=== PATIENT | female | born 1960 | race Caucasian/White ===

== ENCOUNTER 2019-08-18 16:43 | Inpatient (IN) | payer MEDICARE, MEDICAID, SELFPAY ==
[2019-08-24] VITALS (20 sets, daily range): BP systolic 127–156; BP diastolic 54–84; PULSE 52–79; RESP 16–29; TEMP 36.6–37.1; O2SAT 93–100
[2019-08-24] MEDS: ipratropium-albuterol 3 mL Neb INHALATION ×4 (02:09→22:12)
[2019-08-24 05:15] LABS: Add RBC Morph No
[2019-08-24 05:19] LABS: Basophils % 0.2 %; Eosinophils # 0.3 10^3/uL (0.0-0.8); Eosinophils % 2.4 %; Hematocrit 25.6 % (37.0-47.0); Hemoglobin 7.5 g/dL (11.5-15.3); Lymphocytes # 0.7 10^3/uL (0.8-4.8); Mean Corpuscular HGB Conc 29.3 g/dL (30.0-36.0); Mean Corpuscular Hemoglobin 27.7 pg (28.0-34.0); Mean Corpuscular Volume 94.5 fL (81-99); Mean Platelet Volume 9.3 fL (7.4-10.4); Monocytes # 0.5 10^3/uL (0.2-0.9); Monocytes % 4.2 %; Neutrophils # 9.1 10^3/uL (1.8-7.7); Neutrophils % 82.2 %; Nucleated Red Blood Cells % 0 %; Platelet Count 235 10^3/cmm (130-400); Red Blood Count 2.71 10^6/uL (4.1-5.3); Red Cell Distribution Width 15.9 % (12.1-15.1); White Blood Count 11.1 10^3/uL (4.0-10.0)
[2019-08-24 05:46] LABS: Anion Gap 28.6 (5-19); Calcium 9.1 mg/Dl (8.8-10.2); Carbon Dioxide 18 mmol/L (22-29); Chloride 103 mmol/L (98-107); Glomerular Filtration Rate 9.4 mL/min (90-130); Glucose 97 mg/dL (74-106); Potassium 3.6 mmol/L (3.5-5.1); Sodium 146 mmol/L (136-145)
[2019-08-24 05:52] LABS: Blood Urea Nitrogen 82 mg/dL (8-23)
--- NOTE | 2019-08-24 06:00 | XR_ITS ---
WS: [id number] CHEST XRAY TECHNIQUE: Portable chest. CLINICAL INFORMATION: HYPOXIA COMPARISON: August 21, 2019 FINDINGS: Right Port-A-Cath with tip in the SVC. Heart: Cardiomegaly. Moderate pulmonary vascular congestion. Lungs: Bibasilar atelectasis. Interstitial infiltrates due to edema or interstitial pneumonia. Bones: Normal visualized bony structures. XR/XR chest 1V portable [id number] IMPRESSION: 1. Cardiomegaly with stable pulmonary vascular congestion. 2. Interstitial infiltrates due to edema or interstitial pneumonia. This is un changed. 3. Stable right Port-A-Cath.
[2019-08-24] MEDS: clindamycin 900 MG/50 ML PREMIX 100 MG IV ×2 (07:53→15:17)
[2019-08-24 08:20] LABS: Vancomycin Trough 22.6 ug/mL (10-15)
--- NOTE | 2019-08-24 08:30 | PC.RESP ---
BIPAP #10 ON STANDBY
[2019-08-24] MEDS: bumetanide 0.25 mg/mL SDV 10 mL 1 MG IVP ×3 (09:17→23:19)
[2019-08-24] MEDS: heparin 5,000 unit/mL INJ 1 mL 5000 UNIT SUBCUT ×2 (09:17→22:11)
--- NOTE | 2019-08-24 13:57 | PC.CHAP ---
Pastoral Care Encounter/Spiritual Assessment Type of Contact [] Declined ecommerce analyst visit [] Patient/Family/Request visit [] Outpatient visit [] Follow-up visit [] Physician referral [] Code/Alert [] Routine visit [] Staff referral [] Actively dying [] Patient sleeping [] Family support [] [] Out of room [] Palliative care [] [] Receiving care in room [] Pre-surgical visit [] Trauma [] Long length of stay [] ICU visit [] Other: Relational/Emotional Strength [] Patient feels connected with others/family/visitors/staff [] Distress [] Loneliness/isolation [] Abandonment Spirituality of Patient [] Person of [place] [] Attends Advent of their [place] [] Believes in Prayer [] Reads Bible or Voodoo materials [] There are Spiritual issues to be addressed Director Of Cardiology Interventions [] Prayer [] Active listening [] Non-anxious presence [] Spiritual/emotional support [] Crisis/trauma care [] Spiritual counseling [] Bereavement support [] Provided bereavement packet [] Provided Bible/devotional materials [] Provided toy/stuffed animal, coloring book to patient or family member [] Completed spiritual assessment [] Provided Communion [] Anointing/[place] [] Salvation [] Other: Impact on Illness or Injury [] Angry [] Fearful [] Anxious [] Often cries [] Exhaustion [] Unable to work [] Unable to attend samaritan [] Unable to walk/stand [] Unable to read [] Unable to drive [] Unable to eat/drink [] Unable to sleep [] Unable to be with family [] Other: Summary Time spent with patient
--- NOTE | 2019-08-24 13:59 | PC.CHAP ---
Addendum entered by Alex Camarillo 08/24/19 15:15: patient visited by double end tenoner operator Hamilton Brown Original Note: Pastoral Care Encounter/Spiritual Assessment Type of Contact [] Declined double end tenoner operator visit [] Patient/Family/Request visit [] Outpatient visit [] Follow-up visit [] Physician referral [] Code/Alert [] Routine visit [] Staff referral [] Actively dying [] Patient sleeping [] Family support [] [] Out of room [] Palliative care [] [] Receiving care in room [] Pre-surgical visit [] Trauma [] Long length of stay [] ICU visit [] Other: Relational/Emotional Strength [] Patient feels connected with others/family/visitors/staff [] Distress [] Loneliness/isolation [] Abandonment Spirituality of Patient [] Person of [place] [] Attends Orthodoxy of their [place] [] Believes in Prayer [] Reads Bible or Evangelical materials [] There are Spiritual issues to be addressed Development System Efficiency Manager Interventions [] Prayer [] Active listening [] Non-anxious presence [] Spiritual/emotional support [] Crisis/trauma care [] Spiritual counseling [] Bereavement support [] Provided bereavement packet [] Provided Bible/devotional materials [] Provided toy/stuffed animal, coloring book to patient or family member [] Completed spiritual assessment [] Provided Communion [] Anointing/[place] [] Salvation [x] Other: Isolation Impact on Illness or Injury [] Angry [] Fearful [] Anxious [] Often cries [] Exhaustion [] Unable to work [] Unable to attend anabaptist [] Unable to walk/stand [] Unable to read [] Unable to drive [] Unable to eat/drink [] Unable to sleep [] Unable to be with family [] Other: Summary Isolation Time spent with patient 2min
[2019-08-24 17:06] LABS: Glucose Point of Care 119 mg/dL (70-110)
--- NOTE | 2019-08-24 17:15 | P.PN_ITS ---
Subjective Subjective: Interval history: No new issues. Doing well. Extubated, feels comfortable. Hemodynamic parameters look stable Vitals/I&O/Wt Last Vital Signs Temp 98.2 F 08/24/19 14:00 Pulse 75 08/24/19 16:00 Resp 18 08/24/19 16:00 BP 139/64 08/24/19 16:00 Pulse Ox 99 08/24/19 16:00 08/24/19 08/24/19 08/24/19 06:59 14:59 22:59 Intake Total 100 / 100 50 / 50 Output Total 1700 / 1700 Balance -1600 / -1600 50 / 50 Weight last 48 hrs Weight 149.685 kg Weight 156.172 kg Physical Exam Const: COMMON NORMALS: no apparent distress, average body habitus, oriented x3, no limitations, healthy appearing, alert and well nourished HENMT: COMMON NORMALS: normocephalic and head/scalp atraumatic HEAD & SCALP: normocephalic and atraumatic Eye: COMMON NORMALS: PERRL and EOMs intact bilaterally PUPIL: Yes PERRL Lymph: LYMPHATIC: no lymphadenopathy noted and no lymphedema noted Chest: COMMONS NORMALS: inspection of chest normal and palpation of chest normal Resp: COMMON NORMALS: normal respiratory effort and no retractions Cardio: COMMON NORMALS: regular rate RATE: regular rate GI: COMMON NORMALS: normal to inspection, nondistended, normoactive bowel sounds Neuro: COMMON NORMALS: oriented x3 SENSORIUM/ORIENTATION: Yes alert Urinary Catheter Management^: Daniel: Cath Placed During This Visit: no Data Labs: Other Labs: All Labs last 24 hrs except CBC/BMP 08/23/19 08/24/19 08/24/19 18:04 05:08 05:08 RBC 2.71 L MCV 94.5 MCH 27.7 L MCHC 29.3 L RDW 15.9 H MPV 9.3 Neut % (Auto) 82.2 Lymph % (Auto) 6.0 Crowley % (Auto) 4.2 Eos % (Auto) 2.4 Baso % (Auto) 0.2 Neut # (Auto) 9.1 H Lymph # (Auto) 0.7 L Crowley # (Auto) 0.5 Eos # (Auto) 0.3 Baso # (Auto) 0.0 Nucleated RBC % (a uto) 0 Nucleated RBCs # 0.0 GFR Calculation 9.4 L POC Glucose 127 H Calcium 9.1 Vancomycin Trough 08/24/19 08/24/19 08:00 17:02 RBC MCV MCH MCHC RDW MPV Neut % (Auto) Lymph % (Auto) Crowley % (Auto) Eos % (Auto) Baso % (Auto) Neut # (Auto) Lymph # (Auto) Crowley # (Auto) Eos # (Auto) Baso # (Auto) Nucleated RBC % (a uto) Nucleated RBCs # GFR Calculation POC Glucose 119 Calcium Vancomycin Trough 22.6 H A&P Additional A&P Information Additional A&P Information: 1. Non oliguric ROBBIE - creatinine coming down since the peak but remains in the high 4 range - given infection this is likely related; of note both pro and anti-inflammatory cytokines result in a reversible ATN type picture - given the onset on admission I doubt Abx are playing a role - renal sono shows no obstruction - intermittent bumex dosing ok - avoid the usuals - watch Vanco levels closely 2. VDRF, extubated 08/23/19 - O2, per ICU team 3. Lytes look good with minor aberrance 4. Infection - GAS in blood, ? source likely urine given history, ? pulm - defer to ICU team - on Abx inc Imipenem, Clindamycin, Vanco Attestations Medical Necessity Statement*: eval for ROBBIE Coding Level of Care Code Acute Global Engineering Manager for Amelia Haddad
--- NOTE | 2019-08-24 17:33 | P.PN_ITS ---
Subjective Subjective: Interval history: She is feeling about the same. Denies worsening of shortness of breath. Denies chest pain. Having some on and off abdominal discomfort. Had a bowel movement this morning. Vitals/I&O/Wt Last Vital Signs Temp 98.2 F 08/24/19 14:00 Pulse 75 08/24/19 16:00 Resp 18 08/24/19 16:00 BP 139/64 08/24/19 16:00 Pulse Ox 99 08/24/19 16:00 08/24/19 08/24/19 08/24/19 06:59 14:59 22:59 Intake Total 100 / 100 50 / 50 Output Total 1700 / 1700 1200 / 1200 Balance -1600 / -1600 50 / 50 -1200 / -1150 Weight last 48 hrs Weight 149.685 kg Weight 156.172 kg Physical Exam Const: COMMON NORMALS: no apparent distress and alert NUTRITIONAL APPEARANCE: obese ORIENTATION/CONSCIOUSNESS: Yes awake HENMT: COMMON NORMALS: oropharynx normal Neck/C-Spine: COMMON NORMALS: no JVD (Cannot assess for JVD) Resp: COMMON NORMALS: normal respiratory effort and clear to auscultation bilaterally AUSCULTATION: clear to auscultation bilaterally Cardio: COMMON NORMALS: no JVD (Cannot assess for JVD), regular rhythm, S1 normal heart sound, S2 normal heart sound and no murmurs RHYTHM: regular rhythm HEART SOUNDS: S1 normal and S2 normal GI: COMMON NORMALS: normal to inspection, nondistended, normoactive bowel sounds, soft to palpation and non-tender PALPATION: Yes soft Extremity: COMMON NORMALS: no joint enlargement GENERAL: Yes edema (3+ lower extremity edema, worse on the right) Neuro: SENSORIUM/ORIENTATION: Yes alert Skin: WOUNDS: Yes wounds noted (Venous stasis ulcerations on mid anterior left clark, about 3 cm in diameter, draining some purulent appearing liquid) WOUNDS: Yes wounds noted (Venous stasis ulcerations on mid anterior left clark, about 3 cm in diameter, draining some purulent appearing liquid) OTHER: Chronic bilateral lower extremity venous stasis dermatitis Urinary Catheter Management^: Daniel: Cath Placed During This Visit: no Data Labs: Other Labs: All Labs last 24 hrs except CBC/BMP 08/23/19 08/24/19 08/24/19 18:04 05:08 05:08 RBC 2.71 L MCV 94.5 MCH 27.7 L MCHC 29.3 L RDW 15.9 H MPV 9.3 Neut % (Auto) 82.2 Lymph % (Auto) 6.0 Howard % (Auto) 4.2 Eos % (Auto) 2.4 Baso % (Auto) 0.2 Neut # (Auto) 9.1 H Lymph # (Auto) 0.7 L Howard # (Auto) 0.5 Eos # (Auto) 0.3 Baso # (Auto) 0.0 Nucleated RBC % (a uto) 0 Nucleated RBCs # 0.0 GFR Calculation 9.4 L POC Glucose 127 H Calcium 9.1 Vancomycin Trough 08/24/19 08/24/19 08:00 17:02 RBC MCV MCH MCHC RDW MPV Neut % (Auto) Lymph % (Auto) Howard % (Auto) Eos % (Auto) Baso % (Auto) Neut # (Auto) Lymph # (Auto) Howard # (Auto) Eos # (Auto) Baso # (Auto) Nucleated RBC % (a uto) Nucleated RBCs # GFR Calculation POC Glucose 119 Calcium Vancomycin Trough 22.6 H A&P Assessment and plan (1) Acute and chronic respiratory failure: This morning on nasal cannula, overnight with BiPAP support. Saturating in high 90s on 6 L. Has had 1200 mL urine output. At this time continue Primaxin, vancomycin. Will discontinue clindamycin. Continue bumetanide. Zaroxolyn on hold. Continue oxygen support. BiPAP support as needed. Readdress goals of care according to her wishes. Status: Acute Code(s): J96.20 - Acute and chronic respiratory failure, unspecified whether with hypoxia or hypercapnia (2) Bacteremia: So far no growth on repeat blood culture from 08/22. Strep pyogenes and coagulase-negative staph from blood culture 08/18. Suspected port of entry possibly wounds on lower extremities. No vegetations noted on UNA. Discussed with her significant other and with her, unfortunately additional imaging with CT could not be obtained due to physical limitations. Status: Acute Code(s): R78.81 - Bacteremia (3) Acute kidney injury: Creatinine has plateaued around 4.7. Continue with cautious diuresis. Monitor blood pressures. Appreciate nephrology assessments. Status: Acute Code(s): N17.9 - Acute kidney failure, unspecified (4) Bacteriuria: Multidrug-resistant Pseudomonas in urine, resistant to Primaxin. This appears to be likely asymptomatic bacteriuria versus colonization since she has been responding to her current antibiotics. Discussed with her and significant other. Status: Acute Code(s): R82.71 - Bacteriuria (5) Acute on chronic diastolic heart failure: Continue cautious diuresis as allowed by renal function. Continues on Bumex 1 mg. Metolazone has been on hold. Status: Acute Code(s): I50.33 - Acute on chronic diastolic (congestive) heart failure Additional A&P Information Additional A&P Information: Right lower extremity swelling: Will assess with Doppler ultrasound for DVT. Intermittent abdominal pain: Unfortunately unable to obtain CT scan due to body habitus. Will obtain acute abdominal series. Had a bowel movement today. Denies severe pain. Initially tender on palpation, however, on repeat examination was not tender any longer. Altered mental status: Improved. Bradycardia: Improved. Monitor heart rates Pulmonary hypertension Morbid obesity Diabetes mellitus with Charcot arthropathy Chronic lower extremity venous insufficiency Chronic venous stasis dermatitis Venous stasis ulcers on the left lower extremity: Continue vancomycin, Primaxin. Continue gentle diuresis. Elevate extremities. Attestations Medical Necessity Statement*: Continue admission for assessment management of acute on chronic respiratory failure, bacteremia, diastolic CHF exacerbation with acute on chronic renal failure. Coding Level of Care Code Acute Supervisor Powder And Primer Canning for Amelia Haddad Exam Problem Focused Diagnoses Acute and chronic respiratory failure J96.20 Bacteremia R78.81 Acute kidney injury N17.9 Bacteriuria R82.71 Acute on chronic diastolic heart failure I50.33
--- NOTE | 2019-08-24 17:34 | XRR_ITS ---
PROCEDURE INFORMATION: Exam: XR Abdomen, 2 Views Exam date and time: 08/24/2019 5:36 PM Age: 59 years old Clinical indication: Generalized; Patient HX: Intermittent abdominal pain, PT unable to have CT due to size. Xrays done portable, PT unable to come to department; Additional info: Unknown TECHNIQUE: Imaging protocol: XR of the abdomen. Frontal supine and upright views of the abdomen. Views: 2 Views. COMPARISON: CT Chest/Abdomen/Pelvis wo IV 07/03/2019 5:29 AM FINDINGS: Tubes, catheters and devices: Catheter tubing is coiled in the lower abdomen and pelvis. It appears this is a probable right ureteral stent. Lower thorax: The heart is enlarged. Bibasilar airspace opacities are identified compatible with pneumonic infiltrates left much greater than right. There is a small left pleural effusion. No pneumothorax. Gastrointestinal tract: Normal. No bowel dilation. Intraperitoneal space: Normal. No free air. Vasculature: There is a right subclavian port with tip in the superior vena cava. Bones/joints: Moderate to severe degenerative changes are noted in the spine. Soft tissues: There is mild vascular congestion with interstitial edema. XR/XR acute abdomen series [id number] IMPRESSION: 1. Basilar pneumonic infiltrates left greater than right. 2. Nonspecific abdomen. Probable right ureteral stent.
[2019-08-24 21:44] LABS: Glucose Point of Care 106 mg/dL (70-110)
[2019-08-24] MEDS: gabapentin 300 mg Capsule PO (22:11)
[2019-08-24] MEDS: metOLazone 5 MG Tablet 10 MG PO (22:14)
[2019-08-25] VITALS (13 sets, daily range): BP systolic 132–159; BP diastolic 59–81; PULSE 51–83; RESP 15–30; TEMP 36.6–37.9; O2SAT 80–100
[2019-08-25] MEDS: ipratropium-albuterol 3 mL Neb INHALATION ×4 (01:47→20:34)
[2019-08-25] MEDS: ferrous sulfate EC 325 mg Tablet PO (05:03)
[2019-08-25 06:43] LABS: Glucose Point of Care 90 mg/dL (70-110)
--- NOTE | 2019-08-25 07:00 | USCV_ITS ---
GladysLia triplett Age: 59 Gender: F : 1960 Exam Date: 08/25/2019 06:43 Ordering Phys: Kush Cortes MD Technologist: Hugo Gan [place] [facility] [place] RT LEG PAIN AND SWELLING HISTORY: Lower extremity pain. PROCEDURES: Venous duplex imaging was performed in only the right lower extremity. The following venous structures were evaluated: common femoral vein, profunda vein, proximal portion of the greater saphenous vein, superficial femoral vein, and the popliteal vein. In addition, the posterior tibial and peroneal trunk were evaluated. FINDINGS: Normal 2-D Doppler and augmentation and compressibility throughout the lower extremity venous structures. Additional imaging through the proximal calf veins also reveals no thrombus. Limited evaluation of the greater saphenous vein is patent with no thrombus.. CONCLUSIONS No evidence of right lower extremity DVT. Roger Mason MD (Electronically Signed) Final Date: 25 August 2019 09:58 S
[2019-08-25] MEDS: pantoprazole DR 40 mg Tablet PO (08:54)
[2019-08-25] MEDS: fluoxetine 20 mg Capsule PO (08:54)
[2019-08-25] MEDS: isosorbide mononitrate ER 60 mg Tablet PO ×2 (08:54→17:53)
[2019-08-25] MEDS: sennosides 8.6 mg Tablet 1 MG PO ×2 (08:55→17:53)
[2019-08-25] MEDS: bumetanide 0.25 mg/mL SDV 10 mL 1 MG IVP ×3 (08:55→21:25)
[2019-08-25] MEDS: amlodipine 5 mg Tablet PO ×2 (08:55→17:53)
[2019-08-25] MEDS: heparin 5,000 unit/mL INJ 1 mL 5000 UNIT SUBCUT ×2 (08:56→21:30)
[2019-08-25] MEDS: metOLazone 5 MG Tablet 10 MG PO ×3 (09:00→21:30)
[2019-08-25] MEDS: sevelamer 800 mg Tablet PO ×3 (09:00→17:53)
[2019-08-25 09:03] LABS: Basophils % 0.1 %; Eosinophils # 0.2 10^3/uL (0.0-0.8); Eosinophils % 1.6 %; Hematocrit 31.1 % (37.0-47.0); Lymphocytes # 0.7 10^3/uL (0.8-4.8); Lymphocytes % 5.2 %; Mean Corpuscular HGB Conc 28.9 g/dL (30.0-36.0); Mean Corpuscular Hemoglobin 27.7 pg (28.0-34.0); Mean Corpuscular Volume 95.7 fL (81-99); Mean Platelet Volume 9.6 fL (7.4-10.4); Monocytes # 0.5 10^3/uL (0.2-0.9); Monocytes % 3.7 %; Neutrophils # 11.9 10^3/uL (1.8-7.7); Neutrophils % 84.7 %; Nucleated Red Blood Cells % 0 %; Platelet Count 282 10^3/cmm (130-400); Red Blood Count 3.25 10^6/uL (4.1-5.3); Red Cell Distribution Width 15.9 % (12.1-15.1); White Blood Count 14.1 10^3/uL (4.0-10.0)
[2019-08-25 09:15] LABS: Alanine Aminotransferase 5 U/L (0-33); Albumin Level 3.8 g/dL (3.5-5.2); Alkaline Phosphatase 83 IU/L (35-105); Anion Gap 29.1 (5-19); Blood Urea Nitrogen 77 mg/dL (8-23); Calcium 8.3 mg/Dl (8.8-10.2); Carbon Dioxide 17 mmol/L (22-29); Chloride 102 mmol/L (98-107); Globulin 2.2 g/dL (1.3-4.6); Glomerular Filtration Rate 10.5 mL/min (90-130); Glucose 85 mg/dL (74-106); Potassium 4.1 mmol/L (3.5-5.1); Sodium 144 mmol/L (136-145); Total Bilirubin 0.4 mg/dL (0.15-1.2)
[2019-08-25 09:26] LABS: Aspartate Amino Transferase 12 U/L (0-32)
[2019-08-25 09:35] LABS: Add RBC Morph No; Slide Review Slide Review Perform
--- NOTE | 2019-08-25 09:51 | PC.RESP ---
bipap on standby in daytime
--- NOTE | 2019-08-25 11:03 | PC.SOCIAL ---
IMM Update Pg 2 of IMM given and explained to patient who voiced understanding. Copy in chart updated and copy provided to patient.
[2019-08-25] MEDS: HYDROcodone-acetaminophen 5-325 mg Tablet 1 TAB PO ×2 (11:07→17:53)
[2019-08-25 12:42] LABS: Glucose Point of Care 102 mg/dL (70-110)
--- NOTE | 2019-08-25 14:57 | PC.CHAP ---
Pastoral Care Encounter/Spiritual Assessment Type of Contact [] Declined banquet houseperson visit [] Patient/Family/Request visit [] Outpatient visit [x] Follow-up visit [] Physician referral [] Code/Alert [] Routine visit [] Staff referral [] Actively dying [] Patient sleeping [] Family support [] [] Out of room [] Palliative care [] [] Receiving care in room [] Pre-surgical visit [] Trauma [] Long length of stay [] ICU visit [] Other: Relational/Emotional Strength [] Patient feels connected with others/family/visitors/staff [] Distress [] Loneliness/isolation [] Abandonment Spirituality of Patient [] Person of [place] [] Attends Tenriism of their [place] [] Believes in Prayer [] Reads Bible or [place] materials [] There are Spiritual issues to be addressed Fishing Tool Technician Oil [employer] Interventions [] Prayer [] Active listening [] Non-anxious presence [] Spiritual/emotional support [] Crisis/trauma care [] Spiritual counseling [] Bereavement support [] Provided bereavement packet [] Provided Bible/devotional materials [] Provided toy/stuffed animal, coloring book to patient or family member [] Completed spiritual assessment [] Provided Communion [] Anointing/[place] [] Salvation [] Other: Impact on Illness or Injury [] Angry [] Fearful [] Anxious [] Often cries [] Exhaustion [] Unable to work [] Unable to attend taoist [] Unable to walk/stand [] Unable to read [] Unable to drive [] Unable to eat/drink [] Unable to sleep [] Unable to be with family [] Other: Summary Patient in isolation, will followup. Leah Time spent with patient
--- NOTE | 2019-08-25 15:16 | P.PN_ITS ---
Subjective Subjective: Interval history: She is feeling about the same. Denies worsening of shortness of breath. Denies chest pain. Having some on and off abdominal discomfort. Had a bowel movement this morning. Vitals/I&O/Wt Last Vital Signs Temp 98.3 F 08/25/19 12:00 Pulse 68 08/25/19 12:00 Resp 20 H 08/25/19 12:00 BP 151/80 08/25/19 12:00 Pulse Ox 96 08/25/19 12:00 08/25/19 08/25/19 08/25/19 06:59 14:59 22:59 Intake Total 100 / 210 Output Total 1160 / 2360 750 / 750 Balance -1060 / -2150 -750 / -750 Weight last 48 hrs Weight 151.046 kg Weight 148.552 kg Weight 149.685 kg Physical Exam Const: COMMON NORMALS: no apparent distress, average body habitus, oriented x3, no limitations, healthy appearing, alert and well nourished HENMT: COMMON NORMALS: normocephalic and head/scalp atraumatic HEAD & SCALP: normocephalic and atraumatic Eye: COMMON NORMALS: PERRL and EOMs intact bilaterally PUPIL: Yes PERRL Lymph: LYMPHATIC: no lymphadenopathy noted and no lymphedema noted Chest: COMMONS NORMALS: inspection of chest normal and palpation of chest normal Resp: COMMON NORMALS: normal respiratory effort and no retractions Cardio: COMMON NORMALS: regular rate RATE: regular rate GI: COMMON NORMALS: normal to inspection, nondistended, normoactive bowel sounds Neuro: COMMON NORMALS: oriented x3 SENSORIUM/ORIENTATION: Yes alert Urinary Catheter Management^: Daniel: Cath Placed During This Visit: no A&P Additional A&P Information Additional A&P Information: 1. Non oliguric ROBBIE - creatinine coming down - given infection this is likely related; of note both pro and anti-inflammatory cytokines result in a reversible ATN type picture - given the onset on admission I doubt Abx are playing a role - renal sono shows no obstruction - intermittent bumex dosing ok - avoid the usuals - watch Vanco levels closely 2. VDRF, extubated 08/23/19 - O2 3. Lytes look good with minor aberrance 4. Infection - GAS in blood, ? source likely urine given history, ? pulm - defer to ICU team - on Abx inc Imipenem, Clindamycin, Vanco - renal issues now quiescent, with this in mind I will sign off at this time. Thanks for my involvement in her care Attestations Medical Necessity Statement*: Claudia for ROBBIE Coding Level of Care Code Acute Steel Construction Worker for Amelia Haddad
[2019-08-25 16:27] LABS: Glucose Point of Care 119 mg/dL (70-110)
--- NOTE | 2019-08-25 16:30 | P.PN_ITS ---
Subjective Subjective: Interval history: Reports today she is feeling all right. Denies chest pain or pressure, shortness of breath. Denies abdominal pain or discomfort. Vitals/I&O/Wt Last Vital Signs Temp 100.3 F H 08/25/19 15:42 Pulse 70 08/25/19 15:42 Resp 20 H 08/25/19 15:42 BP 139/62 08/25/19 15:42 Pulse Ox 90 08/25/19 15:42 08/25/19 08/25/19 08/25/19 06:59 14:59 22:59 Intake Total 100 / 210 Output Total 1160 / 2360 750 / 750 Balance -1060 / -2150 -750 / -750 Weight last 48 hrs Weight 151.046 kg Weight 148.552 kg Weight 149.685 kg Physical Exam Const: COMMON NORMALS: no apparent distress and alert NUTRITIONAL APPEARANCE: obese ORIENTATION/CONSCIOUSNESS: Yes awake HENMT: COMMON NORMALS: oropharynx normal Neck/C-Spine: COMMON NORMALS: no JVD (Cannot assess for JVD) Resp: COMMON NORMALS: normal respiratory effort AUSCULTATION: crackles Laterality: bilateral (Bases) Cardio: COMMON NORMALS: no JVD (Cannot assess for JVD), regular rhythm, S1 normal heart sound, S2 normal heart sound and no murmurs RHYTHM: regular rhythm HEART SOUNDS: S1 normal and S2 normal GI: COMMON NORMALS: normal to inspection, nondistended, normoactive bowel sounds, soft to palpation and non-tender INSPECTION: Yes other (Large pannus) PALPATION: Yes soft Extremity: COMMON NORMALS: no joint enlargement GENERAL: Yes edema (3+ lower extremity edema, worse on the right) Neuro: SENSORIUM/ORIENTATION: Yes alert Skin: WOUNDS: Yes wounds noted (Venous stasis ulcerations on mid anterior left clark, about 3 cm in diameter, draining some purulent appearing liquid) WOUNDS: Yes wounds noted (Venous stasis ulcerations on mid anterior left clark, about 3 cm in diameter, draining some purulent appearing liquid) OTHER: Chronic bilateral lower extremity venous stasis dermatitis Urinary Catheter Management^: Daniel: Cath Placed During This Visit: no A&P Assessment and plan (1) Acute and chronic respiratory failure: Oxygenation has been improving. She has been doing well on 3 L nasal cannula so far. Continue Primaxin, vancomycin. Continue bumetanide. Has been in negative balance. Monitor renal function. Continue oxygen support. BiPAP support as needed. Continue to readdress goals of care according to her wishes. Status: Acute Code(s): J96.20 - Acute and chronic respiratory failure, unspecified whether with hypoxia or hypercapnia (2) Bacteremia: So far no growth on repeat blood culture from 08/22. Strep pyogenes and coagulase-negative staph from blood culture 08/18. Suspected port of entry possibly wounds on lower extremities. No vegetations noted on UNA. Discussed with her significant other and with her, unfortunately additional imaging with CT could not be obtained due to physical limitations. Status: Acute Code(s): R78.81 - Bacteremia (3) Acute kidney injury: With mild improvement. Continue with cautious diuresis. Monitor blood pressures. Appreciate nephrology assessments. Status: Acute Code(s): N17.9 - Acute kidney failure, unspecified (4) Bacteriuria: Multidrug-resistant Pseudomonas in urine, resistant to Primaxin. This appears to be likely asymptomatic bacteriuria versus colonization since she has been responding to her current antibiotics. Discussed with her and significant other. Status: Acute Code(s): R82.71 - Bacteriuria (5) Acute on chronic diastolic heart failure: Continue cautious diuresis as allowed by renal function. Continues on Bumex 1 mg. Metolazone has been on hold. Status: Acute Code(s): I50.33 - Acute on chronic diastolic (congestive) heart failure Additional A&P Information Additional A&P Information: Right lower extremity swelling: Doppler ultrasound negative for DVT. Intermittent abdominal pain: Nonspecific abdominal series. Unfortunately unable to obtain CT scan due to body habitus. Having bowel movements. No pain. Altered mental status: Improved. Bradycardia: Improved. Monitor heart rates Pulmonary hypertension Morbid obesity Diabetes mellitus with Charcot arthropathy Chronic lower extremity venous insufficiency Chronic venous stasis dermatitis Venous stasis ulcers on the left lower extremity: Continue vancomycin, Primaxin. Continue gentle diuresis. Elevate extremities. Attestations Medical Necessity Statement*: Continue assessment management of respiratory failure secondary to CHF, pneumonia, assessment of bacteremia. Coding Level of Care Code Acute Home Care Chaplain for [facility] Diagnoses Acute and chronic respiratory failure J96.20 Bacteremia R78.81 Acute kidney injury N17.9 Bacteriuria R82.71 Acute on chronic diastolic heart failure I50.33
--- NOTE | 2019-08-25 20:37 | PC.RESP ---
bipap on standby at this time
[2019-08-25 21:20] LABS: Glucose Point of Care 124 mg/dL (70-110)
[2019-08-25] MEDS: gabapentin 300 mg Capsule PO (21:30)
[2019-08-26] VITALS (16 sets, daily range): BP systolic 135–162; BP diastolic 56–72; PULSE 61–89; RESP 15–19; TEMP 36.6–36.8; O2SAT 91–99
[2019-08-26] MEDS: ipratropium-albuterol 3 mL Neb INHALATION ×3 (01:16→19:55)
[2019-08-26] MEDS: ferrous sulfate EC 325 mg Tablet PO (05:08)
--- NOTE | 2019-08-26 06:29 | PC.RESP ---
patient stated she wanted to wear it for only ten to fifteen min.
[2019-08-26 06:30] LABS: Glucose Point of Care 98 mg/dL (70-110)
[2019-08-26] MEDS: pantoprazole DR 40 mg Tablet PO (08:46)
[2019-08-26] MEDS: isosorbide mononitrate ER 60 mg Tablet PO ×2 (08:46→17:26)
[2019-08-26] MEDS: fluoxetine 20 mg Capsule PO (08:46)
[2019-08-26] MEDS: heparin 5,000 unit/mL INJ 1 mL 5000 UNIT SUBCUT ×2 (08:47→21:37)
[2019-08-26] MEDS: bumetanide 0.25 mg/mL SDV 10 mL 1 MG IVP ×2 (08:47→15:48)
[2019-08-26] MEDS: amlodipine 5 mg Tablet PO ×2 (08:47→17:26)
[2019-08-26] MEDS: sennosides 8.6 mg Tablet 1 MG PO ×2 (08:47→17:26)
[2019-08-26] MEDS: HYDROcodone-acetaminophen 5-325 mg Tablet 1 TAB PO ×2 (08:50→15:48)
[2019-08-26] MEDS: metOLazone 5 MG Tablet 10 MG PO ×2 (10:25→15:47)
[2019-08-26] MEDS: sevelamer 800 mg Tablet PO ×3 (10:25→17:26)
--- NOTE | 2019-08-26 12:05 | PC.RESP ---
BIPAP ON STAND BY.
[2019-08-26 12:18] LABS: Glucose Point of Care 139 mg/dL (70-110)
--- NOTE | 2019-08-26 13:12 | PC.CHAP ---
Pastoral Care Encounter/Spiritual Assessment Type of Contact [x] Declined sign writer hand visit [] Patient/Family/Request visit [] Outpatient visit [] Follow-up visit [] Physician referral [] Code/Alert [] Routine visit [] Staff referral [] Actively dying [] Patient sleeping [] Family support [] [] Out of room [] Palliative care [] [] Receiving care in room [] Pre-surgical visit [] Trauma [] Long length of stay [] ICU visit [] Other: Relational/Emotional Strength [] Patient feels connected with others/family/visitors/staff [] Distress [] Loneliness/isolation [] Abandonment Spirituality of Patient [] Person of [place] [] Attends Orthodox of their [place] [] Believes in Prayer [] Reads Bible or Bahai materials [] There are Spiritual issues to be addressed Home Lighting Adviser Interventions [] Prayer [x] Active listening [x] Non-anxious presence [x] Spiritual/emotional support [] Crisis/trauma care [x] Spiritual counseling [] Bereavement support [] Provided bereavement packet [] Provided Bible/devotional materials [] Provided toy/stuffed animal, coloring book to patient or family member [x] Completed spiritual assessment [] Provided Communion [] Anointing/[place] [] Salvation [] Other: Impact on Illness or Injury [] Angry [] Fearful [] Anxious [] Often cries [] Exhaustion [] Unable to work [] Unable to attend zoroastrian [] Unable to walk/stand [] Unable to read [] Unable to drive [] Unable to eat/drink [] Unable to sleep [] Unable to be with family [] Other: Summary Patient declined vist stating; You go visit someone else, I don't need to hear it. Wandy Portillo Time spent with patient 5-minutes
--- NOTE | 2019-08-26 13:38 | PC.RESP ---
Patient given information on Pulmonary Rehab.
--- NOTE | 2019-08-26 14:46 | PC.NURSE ---
Patient does not have brief on, but has chucks under her. Chucks changed.
--- NOTE | 2019-08-26 15:20 | PC.RESP ---
BIPAP ON STAND BY
[2019-08-26 16:54] LABS: Basophils % 0.3 %; Eosinophils # 0.3 10^3/uL (0.0-0.8); Eosinophils % 3.2 %; Hematocrit 26.7 % (37.0-47.0); Lymphocytes # 0.6 10^3/uL (0.8-4.8); Lymphocytes % 5.5 %; Mean Corpuscular Volume 90.2 fL (81-99); Mean Platelet Volume 9.5 fL (7.4-10.4); Monocytes # 0.4 10^3/uL (0.2-0.9); Monocytes % 3.9 %; Neutrophils % 80.1 %; Nucleated Red Blood Cells % 0 %; Platelet Count 312 10^3/cmm (130-400); Red Blood Count 2.96 10^6/uL (4.1-5.3); Red Cell Distribution Width 15.9 % (12.1-15.1)
[2019-08-26 17:02] LABS: Alanine Aminotransferase < 5 U/L (0-33); Albumin Level 3.4 g/dL (3.5-5.2); Alkaline Phosphatase 90 IU/L (35-105); Anion Gap 21.4 (5-19); Aspartate Amino Transferase 7 U/L (0-32); Blood Urea Nitrogen 79 mg/dL (8-23); Calcium 8.5 mg/Dl (8.8-10.2); Carbon Dioxide 23 mmol/L (22-29); Chloride 94 mmol/L (98-107); Globulin 4.1 g/dL (1.3-4.6); Glomerular Filtration Rate 12.9 mL/min (90-130); Glucose 181 mg/dL (74-106); Potassium 3.4 mmol/L (3.5-5.1); Sodium 135 mmol/L (136-145); Total Bilirubin 0.3 mg/dL (0.15-1.2); Total Protein 7.5 g/dL (6.6-8.7)
[2019-08-26 17:19] LABS: Glucose Point of Care 188 mg/dL (70-110)
[2019-08-26] MEDS: alteplase 1 mg/mL SDV 2 mL 2 MG INTRACATH (17:29)
[2019-08-26 18:37] LABS: Slide Review Slide Review Perform
--- NOTE | 2019-08-26 19:13 | P.PN_ITS ---
Subjective Subjective: Interval history: When asked how she is doing responds cannot complain . Denies shortness of breath while on nasal cannula. Denies chest pain or pressure. Denies abdominal pain. Vitals/I&O/Wt Last Vital Signs Temp 97.9 F 08/26/19 16:00 Pulse 66 08/26/19 16:00 Resp 17 08/26/19 16:00 BP 143/56 08/26/19 16:00 Pulse Ox 94 08/26/19 16:00 08/26/19 08/26/19 08/26/19 06:59 14:59 22:59 Intake Total 100 / 1722 360 / 360 580 / 940 Output Total 1450 / 2200 475 / 475 250 / 725 Balance -1350 / -478 -115 / -115 330 / 215 Weight last 48 hrs Weight 150.003 kg Weight 151.999 kg Weight 151.046 kg Weight 148.552 kg Physical Exam Const: COMMON NORMALS: no apparent distress and alert NUTRITIONAL APPEARANCE: obese ORIENTATION/CONSCIOUSNESS: Yes awake HENMT: COMMON NORMALS: oropharynx normal Neck/C-Spine: COMMON NORMALS: no JVD (Cannot assess for JVD) Chest: CHEST: Yes vascular access (Right chest port appears without erythema, swelling, tenderness.) Resp: COMMON NORMALS: normal respiratory effort AUSCULTATION: crackles Laterality: bilateral (Bases) Cardio: COMMON NORMALS: no JVD (Cannot assess for JVD), regular rhythm, S1 normal heart sound, S2 normal heart sound and no murmurs RHYTHM: regular rhythm HEART SOUNDS: S1 normal and S2 normal GI: COMMON NORMALS: normal to inspection, nondistended, normoactive bowel sounds, soft to palpation and non-tender INSPECTION: Yes other (Large pannus) PALPATION: Yes soft Extremity: COMMON NORMALS: no joint enlargement GENERAL: Yes edema (3+ lower extremity edema, worse on the right) Neuro: SENSORIUM/ORIENTATION: Yes alert Skin: WOUNDS: Yes wounds noted (Venous stasis ulcerations on mid anterior left clark, about 3 cm in diameter, draining some purulent appearing liquid) WOUNDS: Yes wounds noted (Venous stasis ulcerations on mid anterior left clark, about 3 cm in diameter, draining some purulent appearing liquid) OTHER: Chronic bilateral lower extremity venous stasis dermatitis Urinary Catheter Management^: Daniel: Cath Placed During This Visit: no Data Micro: Micro: Microbiology 08/26/19 17:30 Blood Culture - Pr eliminary Blood [facility] 08/26/19 17:35 Blood Culture - Pr eliminary Blood SPEC[facility] A&P Assessment and plan (1) Acute and chronic respiratory failure: Oxygenation has been improving. She has been doing well on 3 L nasal cannula so far. Continue antibiotics at this time. Continue diuretic. Right chest port culture requested today. Had to receive TPA due to draw. If still doing well tomorrow, consider switching to Rocephin for treatment of bacteremia. Regarding CODE STATUS, today she states she would want to be intubated if she was again in respiratory distress, and just request that after she wakes up if she still had that she be given enough sedation to quell her gag reflex Status: Acute Code(s): J96.20 - Acute and chronic respiratory failure, unspecified whether with hypoxia or hypercapnia (2) Bacteremia: So far no growth on repeat blood culture from 08/22. Strep pyogenes and coagulase-negative staph from blood culture 08/18. Suspected port of entry possibly wounds on lower extremities. No vegetations noted on UNA. Right chest port appears clean without erythema, swelling, tenderness. Requested culture today. Had to receive TPA prior due to inability to draw from port. Hold Streptococcus in urine. Likely asymptomatic bacteriuria with Pseudomonas. Unfortunately additional imaging with CT could not be obtained due to physical limitations. Status: Acute Code(s): R78.81 - Bacteremia (3) Acute kidney injury: With mild improvement. Continue with cautious diuresis. Monitor blood pressures. Appreciate nephrology assessments. Status: Acute Code(s): N17.9 - Acute kidney failure, unspecified (4) Bacteriuria: Multidrug-resistant Pseudomonas in urine, resistant to Primaxin. This appears to be likely asymptomatic bacteriuria versus colonization since she has been responding to her current antibiotics. Discussed with her and significant other. Status: Acute Code(s): R82.71 - Bacteriuria (5) Acute on chronic diastolic heart failure: Continue cautious diuresis as allowed by renal function. Continues on Bumex 1 mg. Metolazone discontinued. Status: Acute Code(s): I50.33 - Acute on chronic diastolic (congestive) heart failure Additional A&P Information Additional A&P Information: Right lower extremity swelling: Doppler ultrasound negative for DVT. Intermittent abdominal pain: Resolved. Nonspecific abdominal series. Unfortunately unable to obtain CT scan due to body habitus. Having bowel movements. Altered mental status: Improved. Bradycardia: Improved. Monitor heart rates Pulmonary hypertension Morbid obesity Diabetes mellitus with Charcot arthropathy Chronic lower extremity venous insufficiency Chronic venous stasis dermatitis Venous stasis ulcers on the left lower extremity: Continue vancomycin, Primaxin. Continue gentle diuresis. Elevate extremities. Attestations Medical Necessity Statement*: Continue admission for diagnosis and management of streptococcal bacteremia. Coding Level of Care Code Acute [facility] for [facility] Diagnoses Acute and chronic respiratory failure J96.20 Bacteremia R78.81 Acute kidney injury N17.9 Bacteriuria R82.71 Acute on chronic diastolic heart failure I50.33
[2019-08-26 21:10] LABS: Glucose Point of Care 159 mg/dL (70-110)
[2019-08-26] MEDS: gabapentin 300 mg Capsule PO (21:37)
[2019-08-27] VITALS (7 sets, daily range): BP systolic 124–156; BP diastolic 64–70; PULSE 65–68; RESP 17–20; TEMP 36.8–36.9; O2SAT 93–98
[2019-08-27] MEDS: bumetanide 0.25 mg/mL SDV 10 mL 1 MG IVP ×2 (00:09→10:05)
[2019-08-27] MEDS: ipratropium-albuterol 3 mL Neb INHALATION (02:01)
[2019-08-27] MEDS: HYDROcodone-acetaminophen 5-325 mg Tablet 1 TAB PO ×2 (04:06→10:04)
[2019-08-27 06:14] LABS: Basophils % 0.4 %; Eosinophils # 0.3 10^3/uL (0.0-0.8); Eosinophils % 4.1 %; Hematocrit 24.8 % (37.0-47.0); Hemoglobin 7.4 g/dL (11.5-15.3); Lymphocytes # 0.6 10^3/uL (0.8-4.8); Lymphocytes % 7.4 %; Mean Corpuscular HGB Conc 29.8 g/dL (30.0-36.0); Mean Corpuscular Hemoglobin 27.3 pg (28.0-34.0); Mean Corpuscular Volume 91.5 fL (81-99); Mean Platelet Volume 9.4 fL (7.4-10.4); Monocytes # 0.4 10^3/uL (0.2-0.9); Monocytes % 5.3 %; Neutrophils # 6.3 10^3/uL (1.8-7.7); Neutrophils % 75.2 %; Nucleated Red Blood Cells % 0 %; Platelet Count 290 10^3/cmm (130-400); Red Blood Count 2.71 10^6/uL (4.1-5.3); Red Cell Distribution Width 15.6 % (12.1-15.1); White Blood Count 8.3 10^3/uL (4.0-10.0)
[2019-08-27 06:35] LABS: Glucose Point of Care 166 mg/dL (70-110)
[2019-08-27] MEDS: ferrous sulfate EC 325 mg Tablet PO (06:38)
[2019-08-27 06:47] LABS: Alanine Aminotransferase < 5 U/L (0-33); Albumin Level 3.5 g/dL (3.5-5.2); Alkaline Phosphatase 85 IU/L (35-105); Anion Gap 21.3 (5-19); Aspartate Amino Transferase 7 U/L (0-32); Blood Urea Nitrogen 70 mg/dL (8-23); Calcium 8.2 mg/Dl (8.8-10.2); Carbon Dioxide 22 mmol/L (22-29); Chloride 95 mmol/L (98-107); Globulin 2.9 g/dL (1.3-4.6); Glomerular Filtration Rate 12.5 mL/min (90-130); Glucose 165 mg/dL (74-106); Potassium 3.3 mmol/L (3.5-5.1); Sodium 135 mmol/L (136-145); Total Bilirubin 0.3 mg/dL (0.15-1.2); Total Protein 6.4 g/dL (6.6-8.7)
--- NOTE | 2019-08-27 07:14 | PC.NURSE ---
08/26/2019 Dr. Cortes notified of patients potassium of 3.4 , no new orders given at this time.
--- NOTE | 2019-08-27 07:16 | PC.NURSE ---
Dr. Cortes notified of patients potassium of 3.3 , no new orders at this time.
[2019-08-27 07:35] LABS: Slide Review Slide Review Perform
--- NOTE | 2019-08-27 09:17 | PC.RESP ---
B10 on standby at this time.
--- NOTE | 2019-08-27 09:54 | PC.NURSE ---
Not able to obtain weight, bed doesn't have a built in scale.
[2019-08-27] MEDS: heparin 5,000 unit/mL INJ 1 mL 5000 UNIT SUBCUT (10:04)
[2019-08-27] MEDS: sennosides 8.6 mg Tablet 1 MG PO (10:05)
[2019-08-27] MEDS: fluoxetine 20 mg Capsule PO (10:05)
[2019-08-27] MEDS: pantoprazole DR 40 mg Tablet PO (10:06)
[2019-08-27] MEDS: amlodipine 5 mg Tablet PO (10:06)
[2019-08-27] MEDS: isosorbide mononitrate ER 60 mg Tablet PO (10:06)
[2019-08-27] MEDS: sevelamer 800 mg Tablet PO (10:09)
--- NOTE | 2019-08-27 11:17 | PM.DCS ---
Discharge Providers Date of Admission: 08/18/19 16:43 Date of Discharge: 08/27/19 Attending Provider at Admission: Kush Cortes Attending Provider at Discharge: Kush Cortes Primary Care Provider: Keith Cortez Diagnoses at Discharge Discharge Diagnosis (1) Acute and chronic respiratory failure: Status: Acute (2) Bacteremia: Status: Acute (3) Acute kidney injury: Status: Acute (4) Bacteriuria: Status: Acute (5) Acute on chronic diastolic heart failure: Status: Acute Reason for Visit Reason for Visit: Reason For Visit: Acute Resp Failure,Chf, Hypoxia Hospital Course Hospital Course: 59-year-old female half-way resident with past medical history of COPD, oxygen dependent on 2 L, also on BiPAP with sleep, which she has been keeping on most of the time so that in case she falls asleep it is already in place, chronic diastolic CHF, pulmonary hypertension, sleep apnea, chronic kidney disease stage IV, chronic anemia, GERD, history of pyelonephritis, chronic right ureteral stent, recently replaced, chronic venous stasis, peripheral vascular disease was brought to the hospital for evaluation due to confusion and obtundation, found to be in respiratory failure with hypoxia and hypercapnia, requiring intubation and mechanical ventilatory support started on Levaquin and Zosyn for pneumonia, also breathing treatments for acute COPD exacerbation, IV Bumex for diuresis due to diastolic congestive heart failure exacerbation. Troponin abnormal on presentation, 165, 145, 155. She has not had any chest pain. Troponins also are chronically elevated, likely also mismatch and demand supply with acute respiratory failure, as well as acute kidney injury/chronic kidney disease. Blood culture subsequently found positive from 08/18 for strep pyogenes, 1 bottle coag negative staph. Antibiotic coverage was changed to Primaxin, vancomycin, clindamycin was added. Urine culture 08/19 came back with pseudomonas aeruginosa, 10-20,000 CFU, resistant to quinolones, imipenem, intermediate sensitivity to gentamicin. Repeated 08/22 with 10-20,000 Jennifer albicans. Additional investigation was attempted with computed tomography, however, she physically was not able to have a CAT scan. She underwent TTE and subsequently UNA, without finding of vegetation. No sign of urinary tract obstruction was noted on kidney ultrasound. Route of entry for Streptococcus is thought to be through lower extremity wounds, likely ulcerations on anterior mid clark, with chronic venous stasis, dermatitis and ulcers. Her respiratory condition gradually improved. She was able to successfully wean off ventilatory support. She was extubated, with BiPAP support, and subsequently was able to transition to nasal cannula. She initially indicated she would not want to be reintubated in case of future respiratory decline, however, subsequently clarified that she would be willing to be intubated again, however, as long as after she wakes up she is receiving adequate sedation to quell her strong gag reflex. With improvement in respiratory condition, with gradual decrease in leukocytosis, with resolution of fevers present on admission, organism in urine culture was thought to be secondary to asymptomatic bacteriuria. Blood culture was repeated on 08/22, so far without any growth. Patient is found to have a port in the right chest. She is not sure exactly when the port was put in, but thinks it was probably about a year. She is not exactly sure what the port was placed for, but believes it was for blood draws. We cultured the port on 08/26. Will refer her for follow-up with Dr. Abdalla in clinic as she seems to remember it was placed by him. At this time given her respiratory condition is stable, her acute kidney injury has improved with creatinine trending down to 3.7, with resolution of sepsis, with Pseudomonas in urine unlikely asymptomatic bacteriuria versus contaminant, we will let her go from the hospital. At this time she will be leaving with 2 weeks of Rocephin, however, this may need to be extended as needed depending on final results of all the repeat cultures and her clinical condition. We will refer her for follow-up with infectious disease. Physical Exam Const: COMMON NORMALS: no apparent distress and alert NUTRITIONAL APPEARANCE: obese ORIENTATION/CONSCIOUSNESS: Yes awake HENMT: COMMON NORMALS: oropharynx normal Neck/C-Spine: COMMON NORMALS: no JVD (Cannot assess for JVD) Chest: CHEST: Yes vascular access (Right chest port appears without erythema, swelling, tenderness.) Resp: COMMON NORMALS: normal respiratory effort AUSCULTATION: crackles Laterality: bilateral (Bases) Cardio: COMMON NORMALS: no JVD (Cannot assess for JVD), regular rhythm, S1 normal heart sound, S2 normal heart sound and no murmurs RHYTHM: regular rhythm HEART SOUNDS: S1 normal and S2 normal GI: COMMON NORMALS: normal to inspection, nondistended, normoactive bowel sounds, soft to palpation and non-tender INSPECTION: Yes other (Large pannus) PALPATION: Yes soft Extremity: COMMON NORMALS: no joint enlargement GENERAL: Yes edema (3+ lower extremity edema, worse on the right) Neuro: SENSORIUM/ORIENTATION: Yes alert Skin: WOUNDS: Yes wounds noted (Venous stasis ulcerations on mid anterior left clark, about 3 cm in diameter, draining some purulent appearing liquid) WOUNDS: Yes wounds noted (Venous stasis ulcerations on mid anterior left clark, about 3 cm in diameter, draining some purulent appearing liquid) OTHER: Chronic bilateral lower extremity venous stasis dermatitis Urinary Catheter Management^: Daniel: Cath Placed During This Visit: no Discharge Data Data Completed and Pending: Completed Studies During Hospitalization Category Date Time Status XR acute abdomen series 72075 Routi ne Exams 08/24/19 17:34 Completed XR chest 1V luis a ble [id number] Routine Exams 08/24/19 06:00 [place] [id number] Routin e Ultrasound 08/25/19 07:00 Completed Pending at discharge Category Date Time Status Blood Culture Sta t Lab 08/26/19 17:30 Results Complete Blood Co unt w/Auto AM LABS Lab 08/28/19 04:00 Ordered Comprehensive Met abolic Panel AM LA BS Lab 08/28/19 04:00 Ordered Labs from last 24 hours 08/27/19 08/27/19 08/27/19 06:30 05:50 05:50 WBC 8.3 RBC 2.71 L Hgb 7.4 L Hct 24.8 L MCV 91.5 MCH 27.3 L MCHC 29.8 L RDW 15.6 H Plt Count 290 MPV 9.4 Neut % (Auto) 75.2 Lymph % (Auto) 7.4 Crisp % (Auto) 5.3 Eos % (Auto) 4.1 Baso % (Auto) 0.4 Neut # (Auto) 6.3 Lymph # (Auto) 0.6 L Crisp # (Auto) 0.4 Eos # (Auto) 0.3 Baso # (Auto) 0.0 Nucleated RBC % (a uto) 0 Nucleated RBCs # 0.0 Sodium 135 L Potassium 3.3 L Chloride 95 L Carbon Dioxide 22 Anion Gap 21.3 H BUN 70 H Creatinine 3.7 H GFR Calculation 12.5 L Glucose 165 H POC Glucose 166 Calcium 8.2 L Total Bilirubin 0.3 AST 7 ALT < 5 Alkaline Phosphata se 85 Total Protein 6.4 L Albumin 3.5 Globulin 2.9 08/26/19 08/26/19 08/26/19 20:36 17:10 16:10 WBC RBC Hgb Hct MCV MCH MCHC RDW Plt Count MPV Neut % (Auto) Lymph % (Auto) Crisp % (Auto) Eos % (Auto) Baso % (Auto) Neut # (Auto) Lymph # (Auto) Crisp # (Auto) Eos # (Auto) Baso # (Auto) Nucleated RBC % (a uto) Nucleated RBCs # Sodium 135 L Potassium 3.4 L Chloride 94 L Carbon Dioxide 23 Anion Gap 21.4 H BUN 79 H Creatinine 3.6 H GFR Calculation 12.9 L Glucose 181 H POC Glucose 159 188 Calcium 8.5 L Total Bilirubin 0.3 AST 7 ALT < 5 Alkaline Phosphata se 90 Total Protein 7.5 Albumin 3.4 L Globulin 4.1 08/26/19 08/26/19 16:10 11:51 WBC 10.0 RBC 2.96 L Hgb 8.0 L Hct 26.7 L MCV 90.2 MCH 27.0 L MCHC 30.0 RDW 15.9 H Plt Count 312 MPV 9.5 Neut % (Auto) 80.1 Lymph % (Auto) 5.5 Crisp % (Auto) 3.9 Eos % (Auto) 3.2 Baso % (Auto) 0.3 Neut # (Auto) 8.0 H Lymph # (Auto) 0.6 L Crisp # (Auto) 0.4 Eos # (Auto) 0.3 Baso # (Auto) 0.0 Nucleated RBC % (a uto) 0 Nucleated RBCs # 0.0 Sodium Potassium Chloride Carbon Dioxide Anion Gap BUN Creatinine GFR Calculation Glucose POC Glucose 139 Calcium Total Bilirubin AST ALT Alkaline Phosphata se Total Protein Albumin Globulin Vitals: Last Vital Signs Temp 98.3 F 08/27/19 11:07 Pulse 67 08/27/19 11:07 Resp 18 08/27/19 11:07 BP 124/70 08/27/19 11:07 Pulse Ox 96 08/27/19 11:07 Discharge Plan Discharge Patient Disposition: Xfer SNF Condition: Stable Prescriptions: New bumetanide 1 mg tablet 1 mg PO BID Qty: 60 RF: 0 ceftriaxone 2 gram recon soln 2 gm IV DAILY Qty: 14 RF: 0 Continued multivitamin Capsule 1 cap PO DAILY RF: 0 docusate sodium [Colace] 100 mg Capsule 200 mg PO DAILY PRN (Reason: Constipation) RF: 0 acetaminophen [Acetaminophen Pain Relief] 500 mg Tablet 500 mg PO Q6H PRN (Reason: Pain) RF: 0 Zyrtec 10 mg Tablet 10 mg PO DAILY RF: 0 isosorbide mononitrate 30 mg tablet extended release 24 hr 60 mg PO BID RF: 0 amlodipine 5 mg tablet 5 mg PO BID RF: 0 Milk of Magnesia 400 mg/5 mL Suspension 30 ml PO DAILY PRN (Reason: CONSTIPATION) RF: 0 Protonix 40 mg Tablet,Delayed Release (Dr/Ec) 40 mg PO DAILY RF: 0 ferrous sulfate 325 mg (65 mg iron) Tablet 325 mg PO QAM RF: 0 gabapentin 300 mg capsule 300 mg PO BEDTIME RF: 0 insulin lispro 100 unit/mL solution See Protocol sliding scale dose SUBCUT DIRECTED RF: 0 fluoxetine 20 mg Capsule 20 mg PO DAILY RF: 0 Fleet Enema 1 ML solution 1 ml DC RF: 0 Renvela 800 MG tablet 800 mg PO TIDWM RF: 0 Senokot tablet 1 tab PO BID RF: 0 Discontinued furosemide 40 mg tablet 40 mg PO BID RF: 0 Discharge Orders: Discharge Order (Routine); Ordered 08/27/19 Ordered By: Kush Cortes Other Ambulatory Orders: Blood Culture (Routine) Timeframe: 3 Weeks Facility: [facility] - Location: Lab - Main Lab Ordered By: Kush Cortes Referrals: Keith Cortez DO [Primary Care Provider] - 4-7 days Gualberto Abdalla MD [Physician] - 1 week (Port) Activity Restrictions/Additional Instructions: Follow up repeat blood cultures 08/22 and cultures from the port 08/26 Reposition frequently. Continue oxygen by nasal cannula 3 L/min, titrate as needed for saturation 92%. BiPAP anytime she is asleep. Discharge Attestations Time Spent in Discharge Care*: greater than 30 min Quality Metrics Clinical Quality Measures During this hospital stay, did patient experience: None Coding Level of Care Code Acute Correction Officer Head for Chg Fwd Exam Problem Focused Diagnoses Acute and chronic respiratory failure J96.20 Bacteremia R78.81 Acute kidney injury N17.9 Bacteriuria R82.71 Acute on chronic diastolic heart failure I50.33
[2019-08-27 11:25] LABS: Glucose Point of Care 141 mg/dL (70-110)
--- NOTE | 2019-08-27 11:30 | PC.SOCIAL ---
IMM Update Pg 2 of IMM Given and explained to patient who voiced understanding. Copy provided to patient.
[2019-08-27] MEDS: cefTRIAXone 2,000 MG in sodium chloride 0.9% (plus) 50 ML 100 MG IV (12:45)
--- NOTE | 2019-08-27 14:16 | PC.NURSE ---
Pt fitted with leg bag and given night bag for home. iv discontinued.
--- NOTE | 2019-08-27 14:52 | PC.NURSE ---
Pt burt removed, right upper chest luis a cath remained accessed due to doctor leaving decision up to facility and [facility] requesting luis a cath left accessed due to patient to receive outpatient abx. all peripheral lines removed dressed with gauze an coban. pt left on [facility] via [facility] transport service.
== END 2019-08-27 15:01 | disposition home or self-care (01) | DRG 870 ==
LOC: ICU 08-23 10:49 → MEDSURG 08-24 18:23
PROVIDERS: Admitting Provider Internal Medicine; Emergency Provider Family Medicine; Family Provider Family Medicine; PCP Family Medicine; Referring Provider Family Medicine; Visit Provider Internal Medicine
DX: A41.9 Sepsis, unspecified organism (principal); J96.22 Acute and chronic respiratory failure with hypercapnia; J96.21 Acute and chronic respiratory failure with hypoxia; J18.9 Pneumonia, unspecified organism; I50.33 Acute on chronic diastolic (congestive) heart failure; J44.0 Chronic obstructive pulmonary disease with (acute) lower respiratory infection; J44.1 Chronic obstructive pulmonary disease with (acute) exacerbation; E66.2 Morbid (severe) obesity with alveolar hypoventilation; Z68.43 Body mass index [BMI] 50.0-59.9, adult; I13.0 Hypertensive heart and chronic kidney disease with heart failure and stage 1 through stage 4 chronic kidney disease, or unspecified chronic kidney disease; N18.4 Chronic kidney disease, stage 4 (severe); N17.9 Acute kidney failure, unspecified; L97.829 Non-pressure chronic ulcer of other part of left lower leg with unspecified severity; N39.0 Urinary tract infection, site not specified; Z99.81 Dependence on supplemental oxygen; I87.2 Venous insufficiency (chronic) (peripheral); Z96.0 Presence of urogenital implants; E11.22 Type 2 diabetes mellitus with diabetic chronic kidney disease; Z79.4 Long term (current) use of insulin; D63.1 Anemia in chronic kidney disease; K21.9 Gastro-esophageal reflux disease without esophagitis; I27.20 Pulmonary hypertension, unspecified; K59.09 Other constipation; E11.51 Type 2 diabetes mellitus with diabetic peripheral angiopathy without gangrene; E11.610 Type 2 diabetes mellitus with diabetic neuropathic arthropathy; E11.42 Type 2 diabetes mellitus with diabetic polyneuropathy; F41.8 Other specified anxiety disorders; Z87.891 Personal history of nicotine dependence; R41.82 Altered mental status, unspecified; I83.028 Varicose veins of left lower extremity with ulcer other part of lower leg; B95.0 Streptococcus, group A, as the cause of diseases classified elsewhere; M79.661 Pain in right lower leg; R10.9 Unspecified abdominal pain; R00.1 Bradycardia, unspecified
CPT/HCPCS: 31500; 36415; 36416; 36600; 71045; 74022; 76770; 80048; 80053; 81001; 82550; 82570; 82803; 82962; 83605; 83690; 83735; 83880; 84300; 84484; 84540; 85025; 87040; 87077; 87086; 87186; 93005; 93306; 93312; 93320; 93325; 93971; 94002; 94003; 94640; 94660; 94799; 96365; 96366; 96372; 96375; 99291; J0330; J0696; J0743; J1644; J1815; J1940; J1956; J2250; J2543; J2704; J2997; J3370; J3490; J7050; P9047; Q3014

== ENCOUNTER 2019-09-26 20:33 | Inpatient (IN) | payer MEDICARE, MEDICAID, SELFPAY ==
[2019-09-26] VITALS (7 sets, daily range): BP systolic 124–146; BP diastolic 48–69; PULSE 53–80; RESP 16–28; TEMP 36.7–36.9; O2SAT 76–90; BMI 56.5
--- NOTE | 2019-09-26 20:33 | ED_ITS ---
Entered by Lise Chan, acting as scribe for Jael Carias MD HPI - Abdominal Pain General: Chief Complaint: Abdominal Pain Stated Complaint: Abd Pain Time Seen by Provider: 09/26/19 20:33 Source: patient, EMS and RN notes reviewed Mode of arrival: EMS Limitations: physical limitation History of Present Illness: HPI narrative: 59 yo female presents to ED with complaints of abdominal pain and nausea. Per report from EMS, the patient has been complaining of flu-like symptoms and abdominal pain to the [facility] today. EMS stated the patient's oxygen level was 56 upon their arrival. After EMS checked her pulse on their machine, it registered 88-90. The patient has discolored ankles (black) that EMS states is normal for her. EMS states the patient's blood sugar was 204. The patient's PCP is Dr Cortez. elicited complaint: abdominal pain Onset (ago): day(s) (today) Pain Consistency: intermittent Location: Diffuse Severity: moderate Quality: cramping Radiation: none Migration to: no migration Exacerbating factors: nothing Relieving factors: nothing Associated Symptoms: Reports nausea; Denies chills, dysuria and fever(s) Review of Systems Const: Denies: fever, chills, body aches or change in appetite Eyes: Denies: blurry vision or eye discomfort ENMT: Denies: throat pain or dental pain Card: Denies: chest pain Resp: Denies: shortness of breath GI: Reports: nausea : Denies: painful urination Musc: Denies: neck pain or back pain Skin/Breast: Denies: rash Neuro: Denies: headache Psych: Denies: depression Donnie/Lymph: Denies: easy bruising All/Imm: Denies: hives PFSH ED PFSH: Statuses (acute, chronic, etc) shown below reflect problem list status as previously entered and may not be historically accurate Medical History (Updated 09/27/19 @ 01:44 by ) Anemia (Acute) Anxiety (Acute) Chronic constipation (Acute) Chronic kidney disease (Acute) Chronic kidney disease (CKD) (Acute) Chronic UTI (urinary tract infection) (Acute) Congestive heart failure (Acute) Depression (Acute) Diabetes mellitus, type II (Acute) Gastroesophageal reflux (Acute) Hydronephrosis of right kidney (Acute) Hypertension (Acute) Obesity hypoventilation syndrome (Acute) ABDIFATAH treated with BiPAP (Acute) Osteomyelitis of ankle (Acute) Peripheral vascular disease (Acute) Pulmonary hypertension (Acute) Retained ureteral stent (Acute) Surgical History (Updated 09/27/19 @ 01:44 by Gaston Faulkner MD) History of ankle surgery (Acute) History of ureter stent (Acute) Hx of hemorrhoidectomy (Acute) Hx of hernia repair (Acute) Hx of hysterectomy (Acute) Family History (Updated 09/06/19 @ 17:14 by CALOS Lewis) Mother , AT AGE 90 Hypertension Father , AT AGE 59 Diabetes Social History (Updated 09/06/19 @ 17:15 by CALOS Lewis) Smoking and tobacco status: former smoker Quit status (tobacco): has quit using tobacco Alcohol intake: never Adopted: No Caregiver/support person: No Lives independently: No Housing: [place] Current occupational status: disabled Physical Exam Const: COMMON NORMALS: oriented x3 GENERAL APPEARANCE: in distress and lethargic NUTRITIONAL APPEARANCE: obese ORIENTATION/CONSCIOUSNESS: Yes lethargic HENMT: COMMON NORMALS: normocephalic and head/scalp atraumatic HEAD & SCALP: normocephalic and atraumatic Eye: COMMON NORMALS: PERRL and EOMs intact bilaterally PUPIL: Yes PERRL Neck/C-Spine: COMMON NORMALS: supple Chest: COMMONS NORMALS: inspection of chest normal and palpation of chest normal Resp: COMMON NORMALS: clear to auscultation bilaterally EFFORT & INSPECTION: Yes able to speak in complete sentences and Yes respiratory distress AUSCULTATION: clear to auscultation bilaterally Cardio: COMMON NORMALS: regular rate and regular rhythm RATE: regular rate RHYTHM: regular rhythm GI: COMMON NORMALS: soft to palpation, non-tender, no hepatosplenomegaly and no masses PALPATION: Yes soft and Yes no hepatosplenomegaly Neuro: COMMON NORMALS: oriented x3 SENSORIUM/ORIENTATION: Yes lethargic Psych: COMMON NORMALS: mental status grossly normal Skin: COMMON NORMALS: no rashes or lesions noted GENERAL SKIN EXAM: no rashes or lesions noted Procedures Intubation sedative: Etomidate Mg Given: 20 paralytic: Rocuronium Mg Given: 400 Laryngoscope: fiber optic video scope ET Tube Size: 8 ET Tube Uncuffed: No Tube Secured Depth (cm): 25 Tube Secured Location: teeth Tube Placement Confirmation: visualized tube passing through cords, equal breath sounds bilaterally, no breath sounds over epigastrium and confirmation by capnometry Patient Tolerated Procedure: well Intubation Complications: none Course Vital Signs: Vital signs: Vital Signs Temperature 98.2 F 09/27/19 01:22 Pulse Rate 45 L 09/27/19 01:25 Respiratory Rate 16 09/27/19 01:22 Blood Pressure 154/64 09/27/19 01:25 Pulse Oximetry 94 09/27/19 01:25 MDM - Abdominal Pain MDM Narrative: Medical decision making narrative: Patient presents here with hypercapnia respiratory failure along with acute kidney injury and hyperkalemia. Patient given insulin along with D50 here and calcium gluconate. Patient was initially placed on BiPAP and her ABGs worsen. Patient had to be intubated down in the ER due to worsening hypercapnia. Patient tolerated the patient well. Spoke to hospitalist who is seen patient in the ER and will admit to the ICU. Lab Data: Labs: Lab Results 09/26/19 09/26/19 09/26/19 Range/Units 21:10 21:14 21:14 WBC 13.8 H (4.0-10.0) 10^3/ uL RBC 3.21 L (4.1-5.3) 10^6/u L Hgb 8.5 L (11.5-15.3) g/dL Hct 30.6 L (37.0-47.0) % MCV 95.3 (81-99) fL MCH 26.5 L (28.0-34.0) pg MCHC 27.8 L (30.0-36.0) g/dL RDW 16.4 H (12.1-15.1) % Plt Count 259 (130-400) 10^3/c mm MPV 10.7 H (7.4-10.4) fL Neut % (Auto) 81.3 % Lymph % (Auto) 9.8 % Spink % (Auto) 5.6 % Eos % (Auto) 0.3 % Baso % (Auto) 0.4 % Neut # (Auto) 11.2 H (1.8-7.7) 10^3/u L Lymph # (Auto) 1.4 (0.8-4.8) 10^3/u L Spink # (Auto) 0.8 (0.2-0.9) 10^3/u L Eos # (Auto) 0.0 (0.0-0.8) 10^3/u L Baso # (Auto) 0.1 (0.0-0.1) 10^3/u L Nucleated RBC % (a uto) 0.2 % Nucleated RBCs # 0.0 /100WBC Specimen Type Arterial Sample Site Radial, left ABG pH 7.12 L* (7.35-7.45) ABG pCO2 75.3 H* (35-45) mmHg ABG pO2 58.1 L (80.0-100.0) mmH g ABG HCO3 24.6 (22-26) mmol/L ABG Base Excess -5.3 L (-2.0-2.0) mmol/ L Vicente Test Pos Hematocrit 29.2 L (37-47) % O2 Delivery Device Nc O2 Liters/Min 4.0 % Repair Table Operator ID ellpe Sodium 136 (136-145) mmol/L Potassium 7.2 H* (3.5-5.1) mmol/L Chloride 100 (98-107) mmol/L Carbon Dioxide 24 (22-29) mmol/L Anion Gap 19.2 H (5-19) BUN 82 H* (8-23) mg/dL Creatinine 4.4 H (0.5-0.9) mg/dL GFR Calculation 10.2 L (90-130) mL/min Glucose 210 H (74-106) mg/dL Calcium 9.5 (8.5-10.5) mg/dL Total Bilirubin 0.5 (0.15-1.2) mg/dL AST 8 (0-32) U/L ALT < 5 (0-33) U/L Alkaline Phosphata se 104 (35-105) IU/L Total Protein 8.6 (6.6-8.7) g/dL Albumin 3.7 (3.5-5.2) g/dL Globulin 4.9 H (1.3-4.6) g/dL Lipase 24 (13-60) U/L Critical Care Time Critical Care Time: Critical Care Time: Yes Total Critical Care Time: 36 Attestation: 37 minutes of critical care time were performed. Had to monitor patient's respiratory status and continually check ABG along with her mentation. Patient did become hypercapnic and had to be intubated. Patient cardiac output monitored as well along with her hyperkalemia with serial EKGs. Patient given 2 different doses of insulin for hyperkalemia. I consulted hospitalist and spoke to hospitalist about case. Critical care time was done separate of procedures. Discharge Plan Discharge Patient Disposition: Admitted As Inpatient Admit Provider: Gaston Faulkner Clinical Impression: Acute kidney injury, Acute hyperkalemia, Respiratory failure with hypercapnia Condition: Stable Interventions: ED Discharge Assessment Last Done: 09/27/19 01:22 Coding Level of Care Code ED Submersible Pilot for Chg Fwd The documentation recorded by the Dustin presley Valerie R, accurately reflects the service I personally performed and the decisions made by , Jael Carias MD Sep 26, 2019 20:33
--- NOTE | 2019-09-26 20:39 | XRR_ITS ---
PROCEDURE INFORMATION: Exam: XR Chest, 1 View Exam date and time: 09/26/2019 9:00 PM Age: 59 years old Clinical indication: Shortness of breath; Additional info: SOB TECHNIQUE: Imaging protocol: XR of the chest Views: 1 view. COMPARISON: CR XR chest 1V portable [id number] 08/24/2019 4:38 AM FINDINGS: Tubes, catheters and devices: There is a right chest port with the line tip appropriately positioned in the lower SVC near the cavoatrial junction. Lungs: There is extensive ill-defined opacity in the central and lower lungs bilaterally. Bilateral hemidiaphragms are partially obscured. The cardiac silhouette is partially obscured. Pleural space: No pneumothorax. Heart/Mediastinum: Cardiac enlargement is similar to the prior exam allowing for differences in the degree of patient rotation. Bones/joints: Bones are unremarkable. XR/XR chest 1V portable [id number] IMPRESSION: Cardiac enlargement and moderate pulmonary edema, chronic or recurrent since 08/24/2019.
[2019-09-26 21:20] LABS: Arterial Blood Gas Hematocrit 29.2 % (37-47); Base Excess ABG -5.3 mmol/L (-2.0-2.0); Blood Gas Allen Test Pos; Blood Gas Sample Site Radial, left; Blood Gas Sample Type Arterial; HCO3 ABG 24.6 mmol/L (22-26); Oxygen Device NC; PO2 ABG 58.1 mmHg (80.0-100.0)
[2019-09-26 21:21] LABS: ABG PCO2 75.3 mmHg (35-45); ABG PH Result 7.12 (7.35-7.45)
[2019-09-26 21:22] LABS: Basophils # 0.1 10^3/uL (0.0-0.1); Basophils % 0.4 %; Eosinophils % 0.3 %; Hematocrit 30.6 % (37.0-47.0); Hemoglobin 8.5 g/dL (11.5-15.3); Lymphocytes # 1.4 10^3/uL (0.8-4.8); Lymphocytes % 9.8 %; Mean Corpuscular HGB Conc 27.8 g/dL (30.0-36.0); Mean Corpuscular Hemoglobin 26.5 pg (28.0-34.0); Mean Corpuscular Volume 95.3 fL (81-99); Mean Platelet Volume 10.7 fL (7.4-10.4); Monocytes # 0.8 10^3/uL (0.2-0.9); Monocytes % 5.6 %; Neutrophils # 11.2 10^3/uL (1.8-7.7); Neutrophils % 81.3 %; Nucleated Red Blood Cells % 0.2 %; Red Blood Count 3.21 10^6/uL (4.1-5.3); Red Cell Distribution Width 16.4 % (12.1-15.1); White Blood Count 13.8 10^3/uL (4.0-10.0)
[2019-09-26 21:38] LABS: Platelet Count 259 10^3/cmm (130-400); Slide Review Slide Review Perform
[2019-09-26 21:49] LABS: Alanine Aminotransferase < 5 U/L (0-33); Albumin Level 3.7 g/dL (3.5-5.2); Alkaline Phosphatase 104 IU/L (35-105); Anion Gap 19.2 (5-19); Aspartate Amino Transferase 8 U/L (0-32); Calcium 9.5 mg/dL (8.5-10.5); Carbon Dioxide 24 mmol/L (22-29); Chloride 100 mmol/L (98-107); Globulin 4.9 g/dL (1.3-4.6); Glomerular Filtration Rate 10.2 mL/min (90-130); Glucose 210 mg/dL (74-106); Lipase 24 U/L (13-60); Sodium 136 mmol/L (136-145); Total Bilirubin 0.5 mg/dL (0.15-1.2); Total Protein 8.6 g/dL (6.6-8.7)
[2019-09-26 21:51] LABS: Potassium 7.2 mmol/L (3.5-5.1)
[2019-09-26 21:52] LABS: Blood Urea Nitrogen 82 mg/dL (8-23)
--- NOTE | 2019-09-26 22:11 | ECG_ITS ---
Measurements Intervals [place] Rate: 54 P: 95 [place]: 134 QRS: 90 QRSD: 125 T: 25 QT: 485 QTc: 461 SINUS BRADYCARDIA MODERATE INTRAVENTRICULAR CONDUCTION DELAY [110+ ms QRS DURATION] Compared to ECG 08/18/2019 18:43:42 Intraventricular conduction delay now present T-wave abnormality no longer present Electronically Signed On 09-27-2019 20:12:11 COARSE WIRE DRAWER by Houston Chiu M.D. [id number]
[2019-09-26] MEDS: sodium chloride 0.9% 1,000 ML 999 ML IV (22:45)
[2019-09-26] MEDS: calcium gluconate 0.1 gm/mL 10% SDV 10mL 1 GM IVP (22:45)
[2019-09-26] MEDS: dextrose 50% syringe 50 mL IVP (22:45)
[2019-09-26] MEDS: insulin regular-human 100 units/1 mL 10 UNIT IVP (22:46)
--- NOTE | 2019-09-26 23:34 | PC.NURSE ---
Patient brought in for complaints of abdominal pain. Patient O2 Sat is 77% on 4L NC at this time. Patient not arousing to answer this nurses questions or participate in assessment at this time.
[2019-09-27] VITALS (71 sets, daily range): BP systolic 117–183; BP diastolic 48–92; PULSE 31–84; RESP 16–23; TEMP 36–36.8; O2SAT 88–100
[2019-09-27 00:04] LABS: Arterial Blood Gas Hematocrit 29.1 % (37-47); Base Excess ABG -6.6 mmol/L (-2.0-2.0); Blood Gas Allen Test Pos; Blood Gas Sample Site Radial, left; Blood Gas Sample Type Arterial; HCO3 ABG 25.4 mmol/L (22-26); Oxygen Device BIPAP; PO2 ABG 82.9 mmHg (80.0-100.0)
[2019-09-27 00:05] LABS: ABG PCO2 99.8 mmHg (35-45); ABG PH Result 7.01 (7.35-7.45)
[2019-09-27] MEDS: rocuronium 10 mg/mL INJ 5mL 200 MG IV (00:43)
--- NOTE | 2019-09-27 00:46 | XR_ITS ---
WS: [id number] Portable AP upright chest, 09/27/2019 Clinical Data: post intubation Comparison: Portable chest, 09/26/2019 Findings: The endotracheal tube has been placed so that it is in the right mainstem bronchus and need s to be retreated 4 centimeters. The nasogastric tube appears to be in the esophagus. The right subcl anmol catheter ends in the superior vena cava. There is pulmonary vascular congestion. The heart size remains the same. No pneumothorax is present. XR/XR chest 1V portable [id number] Impression: 1. Endotracheal tube ends at the origin of the right mainstem bronchus and need s to be retreated 4centimeters. 2. Nasogastric tube and right subclavian catheter are in good position. 3. Bilateral pulmonary vascular congestion. 4. Atherosclerosis.
[2019-09-27] MEDS: propofol 1,000 MG/100 ML INJ 5.7 MG IV (01:01)
--- NOTE | 2019-09-27 01:11 | PC.NURSE ---
AT 0030 PT MEVED TO ROOM 10 PT INFORMED WOULD NEED TO BE INTUBATED PT OBTUNDED DOES OPEN EYES TO VERBAL STIMULI PT PLACED ON WIRE GALVANIZER SB RATE 40'S RESP 20 REMA[address] ON BIPAP 39 DR SÁNCHEZ RESP THERAPY 2 RNS AT BEDSIDE SUCTION AND CRASH CART IN ROOM AND READY [address] SÁNCHEZ 8.0 EET 25 CM LIP CO2 DETECTOR APPLIED WITH PROPER COLOR CHANGE LUNGS EQUAL GALO AUSCULTATED NO AIR HEARD OVER ABD EQUAL CHEST RISE NOTED WITH AMBU BAG ETT TUBE SECURE WITH TUBE DE LA GARZA BY RESP PT ARYA PROCEDURE WELL MONITOR REMAINED SB RATE 40-50 NO ECTOPY NOTED COLOR PINK 0115 PORTABLE CHEST XRAY COMPLETED
[2019-09-27] MEDS: dextrose 50% syringe 50 mL IVP ×2 (01:15→04:37)
[2019-09-27] MEDS: insulin regular-human 10 UNIT in SYRINGE 1 EACH IVP ×2 (01:19→04:37)
[2019-09-27] MEDS: calcium gluconate 0.1 gm/mL 10% SDV 10mL 1 GM IVP (01:22)
--- NOTE | 2019-09-27 01:34 | P.HP_ITS ---
Providers/Chief Complaint Admitting Physician: Gaston Faulkner MD Primary Care Provider: Keith Cortez DO Chief Complaint: HYPERKULEMIA, ACUTE KIDNEY INJURY, DYSPNEA History of Present Illness Lia Aguirre is a 59 year old female detention resident with a past medical history of COPD, uses BiPAP 24/7, 2 L oxygen, chronic diastolic CHF, pulmonary hypertension, sleep apnea, obesity hypoventilation syndrome, chronic kidney disease stage IV, chronic anemia, GERD, history of chronic right ureteral stent recently replaced, chronic venous stasis, peripheral vascular disease, who presents to the emergency room due to complaints of altered mental status and hypoxia. Of note patient recently had admission on 08/27/2019 for acute on chronic respiratory failure for which she was intubated, successfully extubated, she was also found to have an exacerbation of acute on chronic diastolic CHF, and bacteremia secondary to Streptococcus pyogenes group A, pseudomonas aeruginosa UTI, for which she was discharged on Rocephin for 14 days. Currently patient is alert oriented x0, very drowsy, not tolerating BiPAP, worsening pH and PCO2, patient was intubated to protect her airway and for respiratory failure. Most of the history was provided by the detention, detention states that patient is compliant with BiPAP use, uses a 24/7, this afternoon, patient had episodes of alterations of her mentation, and her oxygen saturations dropped into the low 40s, thus the detention had her come back to the ER. No recent fevers, chills, cough. No recent complaints of shortness of breath. No sick contacts. Review of Systems 2 Const: Denies: fever, chills, fatigue or malaise Eyes: Reports: change in vision and blurry vision ENMT: Reports: nasal congestion Resp: Denies: shortness of breath, productive cough, non-productive cough or wheezing GI: Denies: abdominal pain, nausea, vomiting, vomiting blood, diarrhea, constipation, blood in stool or black tarry stool : Denies: flank pain, painful urination or urinary frequency Musc: Denies: neck pain or back pain Skin/Breast: Denies: rash Neuro: Denies: headache, dizziness or vertigo Psych: Denies: anxiety or depression Endo: Reports: excessive thirst; Denies: excessive urination Medications/Allergies Home Medications Medication Instructions Recorded Confirmed Last Taken Type bisacodyl 10 mg PO DAILY PRN 09/27/19 09/27/19 Unknown History bisacodyl 10 mg WV DAILY PRN 09/27/19 09/27/19 Unknown History Allergies Allergy/AdvReac Type Severity Reaction Status Date / Time clarithromycin [From Biaxin] Allergy HEAVINESS Verified 09/06/19 17:08 IN CHEST hydralazine Allergy ALGY-Hives Verified 08/24/19 02:48 Additional Medication Information Additional Medication Information: Medication list is currently being obtained from the detention PFSH Acute PFSH: Statuses (acute, chronic, etc) shown below reflect problem list status as previously entered and may not be historically accurate Medical History (Updated 09/27/19 @ 01:44 by ) Anemia (Acute) Anxiety (Acute) Chronic constipation (Acute) Chronic kidney disease (Acute) Chronic kidney disease (CKD) (Acute) Chronic UTI (urinary tract infection) (Acute) Congestive heart failure (Acute) Depression (Acute) Diabetes mellitus, type II (Acute) Gastroesophageal reflux (Acute) Hydronephrosis of right kidney (Acute) Hypertension (Acute) Obesity hypoventilation syndrome (Acute) ABDIFATAH treated with BiPAP (Acute) Osteomyelitis of ankle (Acute) Peripheral vascular disease (Acute) Pulmonary hypertension (Acute) Retained ureteral stent (Acute) Surgical History (Updated 09/27/19 @ 01:44 by Gaston Faulkner MD) History of ankle surgery (Acute) History of ureter stent (Acute) Hx of hemorrhoidectomy (Acute) Hx of hernia repair (Acute) Hx of hysterectomy (Acute) Family History (Updated 09/06/19 @ 17:14 by CALOS Lewis) Mother , AT AGE 90 Hypertension Father , AT AGE 59 Diabetes Social History (Updated 09/06/19 @ 17:15 by CALOS Lewis) Smoking and tobacco status: former smoker Quit status (tobacco): has quit using tobacco Alcohol intake: never Adopted: No Caregiver/support person: No Lives independently: No Housing: [facility] Current occupational status: disabled Vitals/I&O/Wt Last Vital Signs Temp 98.2 F 09/27/19 01:22 Pulse 45 L 09/27/19 01:25 Resp 16 09/27/19 01:22 BP 154/64 09/27/19 01:25 Pulse Ox 94 09/27/19 01:25 Weight last 48 hrs Weight 158.757 kg Physical Exam Narrative: EXAM NARRATIVE: Currently obtunded, lethargic, does not respond to questioning, does open her eyes Const: EXAM LIMITATIONS: altered mental status NUTRITIONAL APPEARANCE: obese ORIENTATION/CONSCIOUSNESS: Yes confused and Yes obtunded HENMT: COMMON NORMALS: normocephalic Eye: COMMON NORMALS: PERRL and EOMs intact bilaterally Neck/C-Spine: COMMON NORMALS: no lymphadenopathy Lymph: LYMPHATIC: no lymphadenopathy noted Resp: COMMON NORMALS: no retractions, no use of accessory muscles and clear to auscultation bilaterally EFFORT & INSPECTION: Yes abnormal respiratory pattern apneustic breathing and Yes tachypneic Cardio: COMMON NORMALS: no JVD, regular rate, regular rhythm, S1 normal heart sound and S2 normal heart sound GI: COMMON NORMALS: normal to inspection, nondistended, normoactive bowel sounds, soft to palpation and non-tender AUSCULTATION: Yes normoactive bowel sounds : COMMON NORMALS: Yes no CVA tenderness Extremity: COMMON NORMALS: normal capillary refill NARRATIVE EXTREMITY EXAM: Bilateral lower extremity edema, bilateral venous stasis ulcers bilateral lower extremities, Neuro: OTHER: Alert oriented x0, does not follow neurologic exam Skin: NARRATIVE SKIN EXAM: Bilateral venous stasis ulcers bilateral lower extremities Urinary Catheter Management^: Daniel: Cath Placed During This Visit: no Data : 09/26/19 21:14 09/26/19 21:14 A&P Assessment and plan (1) Acute on chronic respiratory failure with hypoxia and hypercapnia: -Multifactorial, related to obesity hypoventilation syndrome, diastolic CHF, COPD, pulmonary hypertension, sleep apnea, chronic CO2 retainer -Patient's altered mental status is likely secondary to CO2 narcosis -This is patient's second intubation and ICU admission in the last month -Patient's chest x-ray is difficult to interpret given body habitus, and positioning does have probably vascular congestion, possible left lower lobe pneumonia? (Considering she had a recent hospitalization) -WBC 13.8 -PCO2 as high as 99.8, pH 7.0 after being placed on the ventilator, pH improved to 7.2, PCO2 58 -BNP so far is pending, patient chronically runs 20-30,000 -I believe likely patient's symptoms are secondary to CO2 narcosis related to chronic obesity hypoventilation syndrome Plan: -Ipratropium, Solu-Medrol -Given patient's risk factors for pneumonia as above, start broad-spectrum antibiotics vancomycin and Zosyn, follow blood cultures, will de-escalate based on clinical progress -For diastolic CHF, fluid overload, metolazone 10 mg oral once, followed by Bumex 2 mg IV twice daily, to be adjusted by the morning team based on urine out put, monitor creatinine, and clinical progress -Continue ventilator, Protonix, Lovenox, minimize PEEP, minimize FiO2 -I believe patient's symptoms are likely secondary to chronic CO2 retention, and obesity hypoventilation syndrome: given that patient is compliant with BiPAP 24/7 at the detention, and this is second intubation in the last month for CO2 narcosis, patient might be a candidate for chronic tracheostomy with chronic ventilator at [facility], consider speaking to Dr. Jung Status: Acute Code(s): J96.21 - Acute and chronic respiratory failure with hypoxia; J96.22 - Acute and chronic respiratory failure with hypercapnia (2) Acute kidney injury: -BUN 82, creatinine 4.4 -Has CKD stage IV, baseline creatinine 3-4 -On her last admission patient was found to have non-illegal uric ROBBIE secondary to infection, ATN -We will recheck BMP -Patient might require dialysis if her potassium does not improve Status: Acute Code(s): N17.9 - Acute kidney failure, unspecified (3) Hyperkalemia: -Patient has received 10 units of insulin, but potassium remains 7.2 -Received calcium gluconate -We will try again 10 units of insulin, albuterol -We will consult nephrology, if patient possibly requires dialysis Status: Acute Code(s): E87.5 - Hyperkalemia (4) Diabetes mellitus, type II: Insulin sliding scale Status: Acute Code(s): E11.9 - Type 2 diabetes mellitus without complications (5) Congestive heart failure: Bumex and metolazone dosing as above Status: Acute Code(s): I50.9 - Heart failure, unspecified (6) Chronic kidney disease (CKD): Status: Acute Code(s): N18.9 - Chronic kidney disease, unspecified (7) Peripheral vascular disease: Status: Acute Code(s): I73.9 - Peripheral vascular disease, unspecified (8) Pulmonary hypertension: Status: Acute Code(s): I27.20 - Pulmonary hypertension, unspecified (9) Bacteremia: Has finished Rocephin course Status: Acute Code(s): R78.81 - Bacteremia Attestations Medical Necessity Statement*: She requires inpatient admission, ICU, greater than 2 minutes, for acute on chronic respiratory failure, ROBBIE, hyperkalemia Coding Level of Care Code Acute Lawn Mower for [facility] Fwd Diagnoses Acute on chronic respiratory failure with hypoxia and hypercapnia J96.21; J96.22 Acute kidney injury N17.9 Hyperkalemia E87.5 Diabetes mellitus, type II E11.9 Congestive heart failure I50.9 Chronic kidney disease (CKD) N18.9 Peripheral vascular disease I73.9 Pulmonary hypertension I27.20 Bacteremia R78.81
--- NOTE | 2019-09-27 01:42 | PC.NURSE ---
ETT PULLED TO 24CM LIP PER DR SÁNCHEZ DONE BY RESP THERAPY
[2019-09-27 01:46] LABS: ABG PCO2 58.6 mmHg (35-45); ABG PH Result 7.21 (7.35-7.45); Arterial Blood Gas Hematocrit 25.5 % (37-47); Base Excess ABG -4.6 mmol/L (-2.0-2.0); Blood Gas Allen Test Pos; Blood Gas Sample Site Radial, right; Blood Gas Sample Type Arterial; Blood Gas Tidal Volume 0.45; HCO3 ABG 23.3 mmol/L (22-26); Oxygen Device VENT; PO2 ABG 61.1 mmHg (80.0-100.0)
--- NOTE | 2019-09-27 02:14 | ECG_ITS ---
Measurements Intervals [place] Rate: 41 P: 96 [place]: 123 QRS: 85 QRSD: 118 T: 4 QT: 513 QTc: 427 SINUS BRADYCARDIA LOW QRS VOLTAGE IN PRECORDIAL LEADS [QRS DEFLECTION < 1.0 mV IN CHEST LEADS] SEPTAL MYOCARDIAL INFARCTION [40+ ms Q WAVE IN V1/V2], OF INDETERMINATE AGE Compared to ECG 08/18/2019 18:43:42 Myocardial infarct finding now present T-wave abnormality no longer present Electronically Signed On 09-27-2019 20:13:42 MEDICAL REFERRAL COORDINATOR by Houston Chiu M.D. [id number]
--- NOTE | 2019-09-27 02:52 | PC.PHAR ---
Creatinine clearance is 21. Vancomycin is dosed at 750mg IVPB every 24 hours to produce a predicted trough level of 15.65 (population based pharmacokinetic analysis). A trough level has been ordered from the lab to be obtained before the third dose to confirm and adjust if needed. Zosyn is dosed at 3.375gm IVPB every 8 hours per extended infusion protocol.
[2019-09-27] MEDS: ipratropium-albuterol 3 mL Neb INHALATION ×5 (03:00→19:38)
[2019-09-27 03:23] LABS: Influenza A by IFA Negative (Negative); Influenza B by IFA Positive (Negative)
[2019-09-27 03:56] LABS: Anion Gap 29.1 (5-19); Blood Urea Nitrogen 75 mg/dL (8-23); Calcium 9.5 mg/dL (8.5-10.5); Carbon Dioxide 16 mmol/L (22-29); Chloride 101 mmol/L (98-107); Glomerular Filtration Rate 9.9 mL/min (90-130); Glucose 297 mg/dL (74-106); Osmolality Calculated 299 mOsm/kg (285-295); Sodium 139 mmol/L (136-145)
[2019-09-27 04:04] LABS: Potassium 7.1 mmol/L (3.5-5.1)
[2019-09-27] MEDS: metOLazone 5 MG Tablet 10 MG PO ×2 (04:17→09:46)
[2019-09-27] MEDS: enoxaparin 40 mg/0.4 mL Syringe SUBCUT (04:18)
[2019-09-27] MEDS: piperacillin-tazobactam 3.375 GM in sodium chloride 0.9% (plus) 50 ML IV ×2 (04:18→19:44)
[2019-09-27 05:05] LABS: ABG PCO2 48.8 mmHg (35-45); ABG PH Result 7.29 (7.35-7.45); Arterial Blood Gas Hematocrit 26.3 % (37-47); Base Excess ABG -3.4 mmol/L (-2.0-2.0); Blood Gas Allen Test Pos; Blood Gas Sample Site Radial, right; Blood Gas Sample Type Arterial; Blood Gas Tidal Volume 0.45; HCO3 ABG 23.2 mmol/L (22-26); Oxygen Device VENT; PO2 ABG 55.9 mmHg (80.0-100.0)
[2019-09-27 05:08] LABS: Alanine Aminotransferase < 5 U/L (0-33); Alkaline Phosphatase 88 IU/L (35-105); Anion Gap 23.1 (5-19); Aspartate Amino Transferase 8 U/L (0-32); Blood Urea Nitrogen 70 mg/dL (8-23); Calcium 9.6 mg/dL (8.5-10.5); Carbon Dioxide 20 mmol/L (22-29); Chloride 101 mmol/L (98-107); Glomerular Filtration Rate 10.5 mL/min (90-130); Glucose 244 mg/dL (74-106); Magnesium 2.4 mg/dL (1.7-2.3); Phosphorus 7.6 mg/dL (2.5-4.5); Sodium 137 mmol/L (136-145); Total Bilirubin 0.7 mg/dL (0.15-1.2)
[2019-09-27 05:11] LABS: Potassium 7.1 mmol/L (3.5-5.1)
[2019-09-27 07:22] LABS: Glucose Point of Care 220 mg/dL (70-110)
[2019-09-27] MEDS: propofol 1,000 MG/100 ML INJ 34.2 MG IV (09:43)
[2019-09-27] MEDS: fluoxetine 20 mg Capsule PO (09:46)
[2019-09-27] MEDS: isosorbide mononitrate ER 30 mg Tablet 60 MG PO ×2 (09:46→19:44)
[2019-09-27] MEDS: oseltamivir phosphate 75 mg Capsule PO ×2 (09:46→19:43)
[2019-09-27] MEDS: sennosides 8.6 mg Tablet PO (09:46)
[2019-09-27] MEDS: multivitamin therapeutic Tablet 1 TAB PO (09:46)
[2019-09-27] MEDS: amlodipine 5 mg Tablet PO ×2 (09:46→19:43)
[2019-09-27] MEDS: pantoprazole DR 40 mg Tablet PO (09:47)
[2019-09-27] MEDS: bumetanide 0.25 mg/mL SDV 10 mL 2 MG IV ×2 (09:47→19:44)
--- NOTE | 2019-09-27 09:52 | PC.NURSE ---
patient moved from ICU room 2 to ICU room 11 for placement of dialysis catheter. JASKARAN Christopher
--- NOTE | 2019-09-27 10:21 | XR_ITS ---
WS: [id number] Portable AP supine chest, 09/27/2019, 1103 hours Clinical Data: tube placement Comparison: Portable chest, today, 0109 hours. Findings: The endotracheal tube is now above the gladys and is no longer within the right mainstem br onchus. Nasogastric tube, right subclavian catheter and monitor leads are the same. The pulmonary vas cularity and heart size have not changed. The pulmonary vascularity is not increased. No pneumonia or pneumothorax is seen. XR/XR chest 1V portable [id number] Impression: 1. Endotracheal tube above the gladys. 2. No change in heart, lungs or position of other tubes.
--- NOTE | 2019-09-27 10:31 | PM.CONSULT ---
Providers/Reason For Consult Consulting Physican/Specialty*: Nephrology Reason for Consult*: Eval for renal failure and hyperkalemia Attending Physician: Gaston Faulkner MD Primary Care Provider: Keith Cortez DO History of Present Illness History of Present Illness Lia Aguirre is a 59 year old female Thank you consultation. Today I reviewed this unfortunate 59-year-old female resident. We had recently been involved with her care earlier in August, when she had presented with significant multisystem organ dysfunction. During the hospitalization she was admitted with obtundation, respiratory failure, hypoxia, hypercapnia requiring intubation and mechanical ventilation. She was treated with a combination of antibiotics for pneumonia. The blood cultures during the hospital stay demonstrated positivity for strep pyogenes. She had ROBBIE with a creatinine that peaked at 5 but came down with supportive care and she did not require dialysis. She now represents to our facility with obtundation and is again intubated and mechanically ventilated. She is not requiring any presses. Her heart rate is noted to be low. Following arrival, she was found to have an elevated serum creatinine of 4.3, minimal urine output, a potassium of 7.2. Despite aggressive temporizing therapy, her potassium has remained in the seven range. As she's intubated, she can give no additional history. The history is taken from the staff and also the medical chart. Prior to hospitalization the only potential nephrotoxic agent is the fleet enema. No apparent exposure to NSAIDs Review of Systems General: Reports: ROS unobtainable due to medical condition Meds/Allergies Home Medications and Allergies Home Medications Medication Instructions Recorded Confirmed Type Fleet Enema 1 ml NE DAILY PRN 08/23/19 09/27/19 History Renvela 800 mg PO TIDWM 08/23/19 09/27/19 History Senokot 1 tab PO BID 08/23/19 09/27/19 History acetaminophen [Acetaminophen Pain 500 mg PO Q6H PRN 08/23/19 09/27/19 History Relief] amlodipine 5 mg PO BID 08/23/19 09/27/19 History cetirizine [Zyrtec] 10 mg PO DAILY 08/23/19 09/27/19 History ferrous sulfate 325 mg PO QAM 08/23/19 09/27/19 History fluoxetine 20 mg PO DAILY 08/23/19 09/27/19 History gabapentin 300 mg PO BEDTIME 08/23/19 09/27/19 History isosorbide mononitrate 60 mg PO BID 08/23/19 09/27/19 History magnesium hydroxide [Milk of 30 ml PO DAILY PRN 08/23/19 09/27/19 History Magnesia] multivitamin 1 cap PO DAILY 08/23/19 09/27/19 History pantoprazole [Protonix] 40 mg PO DAILY 08/23/19 09/27/19 History bisacodyl 10 mg PO DAILY PRN 09/27/19 09/27/19 History bisacodyl 10 mg NE DAILY PRN 09/27/19 09/27/19 History Allergies Allergy/AdvReac Type Severity Reaction Status Date / Time clarithromycin [From Biaxin] Allergy HEAVINESS Verified 09/06/19 17:08 IN CHEST hydralazine Allergy ALGY-Hives Verified 08/24/19 02:48 Current Medications Current Medications Generic Name Dose Route Start Last Admin Trade Name Freq PRN Reason Stop Dose Admin Albuterol/Ipratropium 3 ml 09/27/19 08:00 09/27/19 07:42 Duoneb INHALATION 3 ml Q4H MADELEINE Administration Amlodipine Besylate 5 mg 09/27/19 09:00 09/27/19 09:46 Norvasc PO 5 mg BID MADELEINE Administration Bumetanide 2 mg 09/27/19 09:00 09/27/19 09:47 Bumex IV 2 mg BID MADELEINE Administration Enoxaparin Sodium 40 mg 09/27/19 02:14 09/27/19 04:18 Lovenox SUBCUT 40 mg Q24H MADELEINE Administration Ferrous Sulfate 300 mg 09/27/19 09:15 09/27/19 10:14 Ferrous Sulfate PO 300 mg QAM MADELEINE Administration Fluoxetine HCl 20 mg 09/27/19 09:00 09/27/19 09:46 Prozac PO 20 mg DAILY MADELEINE Administration Propofol 1,000 mg in 100 mls @ 0 mls/hr 09/27/19 01:00 09/27/19 09:43 Diprivan IV 35.9 mcg/kg/min .Q0M MADELEINE 34.2 mls/hr Administration Protocol Per Protocol Piperacillin Sod/Tazobactam 50 mls @ 12.5 mls/hr 09/27/19 03:00 09/27/19 07:54 Sod 3.375 gm/ Sodium Chloride IV Infused Q8H MADELEINE Infusion Protocol As Directed Insulin Aspart 0 unit 09/27/19 08:00 09/27/19 07:32 Novolog SUBCUT 6 unit TIDWM MADELEINE Administration Protocol Isosorbide Mononitrate 60 mg 09/27/19 09:00 09/27/19 09:46 Imdur PO 60 mg BID MADELEINE Administration Methylprednisolone Sodium Succinate 40 mg 09/27/19 02:14 09/27/19 04:17 Solu-Medrol IVP 40 mg Q8H MADELEINE Administration Metolazone 10 mg 09/27/19 02:14 09/27/19 09:46 Zaroxolyn PO 10 mg DAILY MADELEINE Administration Multivitamins Therapeutic 1 tab 09/27/19 09:00 09/27/19 09:46 Multivitamin Tab PO 1 tab DAILY MADELEINE Administration Oseltamivir Phosphate 75 mg 09/27/19 09:00 09/27/19 09:46 Tamiflu PO 75 mg BID MADELEINE Administration Pantoprazole Sodium 40 mg 09/27/19 09:00 09/27/19 09:47 Protonix PO 40 mg DAILY MADELEINE Administration Rocuronium [place] 200 mg 09/27/19 00:29 09/27/19 00:43 Zemuron IV 200 mg Q1H PRN Administration NEEDED FOR FEVER OR PAIN Senna 8.6 mg 09/27/19 09:00 09/27/19 09:46 Senna Lax PO 8.6 mg BID MADELEINE Administration PFSH Acute PFSH: Statuses (acute, chronic, etc) shown below reflect problem list status as previously entered and may not be historically accurate Medical History (Updated 09/27/19 @ 01:44 by ) Anemia (Acute) Anxiety (Acute) Chronic constipation (Acute) Chronic kidney disease (Acute) Chronic kidney disease (CKD) (Acute) Chronic UTI (urinary tract infection) (Acute) Congestive heart failure (Acute) Depression (Acute) Diabetes mellitus, type II (Acute) Gastroesophageal reflux (Acute) Hydronephrosis of right kidney (Acute) Hypertension (Acute) Obesity hypoventilation syndrome (Acute) ABDIFATAH treated with BiPAP (Acute) Osteomyelitis of ankle (Acute) Peripheral vascular disease (Acute) Pulmonary hypertension (Acute) Retained ureteral stent (Acute) Surgical History (Updated 09/27/19 @ 01:44 by Gaston Faulkner MD) History of ankle surgery (Acute) History of ureter stent (Acute) Hx of hemorrhoidectomy (Acute) Hx of hernia repair (Acute) Hx of hysterectomy (Acute) Family History (Updated 09/06/19 @ 17:14 by CALOS Lewis) Mother , AT AGE 90 Hypertension Father , AT AGE 59 Diabetes Social History (Updated 09/06/19 @ 17:15 by CALOS Lewis) Smoking and tobacco status: former smoker Quit status (tobacco): has quit using tobacco Alcohol intake: never Adopted: No Caregiver/support person: No Lives independently: No Housing: Skilled Nursing Current occupational status: disabled Vitals/I&O/Wt Last Vital Signs Temp 97.6 F 09/27/19 09:00 Pulse 38 L 09/27/19 09:04 Resp 18 09/27/19 09:03 BP 135/63 09/27/19 09:04 Pulse Ox 100 09/27/19 09:04 09/26/19 09/27/19 09/27/19 22:59 06:59 14:59 Intake Total 99.59 / 99.59 Output Total 100 / 100 Balance -100 / -100 99.59 / 99.59 Weight last 48 hrs Weight 157.759 kg Weight 158.757 kg Physical Exam Const: COMMON NORMALS: no apparent distress ORIENTATION/CONSCIOUSNESS: Yes obtunded Neck/C-Spine: COMMON NORMALS: no JVD Lymph: LYMPHATIC: no lymphadenopathy noted Cardio: COMMON NORMALS: no JVD and regular rhythm; negative for regular rate (bradycardia) RATE: abnormal rate (bradycardia) RHYTHM: regular rhythm GI: INSPECTION: Yes normal to inspection and Yes abdominal wall ecchymosis Extremity: COMMON NORMALS: normal to inspection and full ROM Urinary Catheter Management^: Daniel: Cath Placed During This Visit: no Data Micro: Micro: Microbiology 09/27/19 02:05 Sputum Culture - P reliminary Sputum - Endotrac heal Tube Aspirate A&P Additional A&P Information 1. Renal failure and critical hyperkalemia it is likely that she is now sustained another hit of significant infection/ischemic ATN. Given that her potassium is critically elevated and will not come down with temporizing therapy will proceed with emergency hemodialysis. I do believe the surgical team has been constant place an emergency hemodialysis line, I have discussed with our dialysis techs and will provide the services soon as the line is in. Work is ongoing at this time including abdominal imaging, also send urine studies to include fractional excretion of sodium and urea. Will also get CPK and TSH levels strict ins and outs left also therapy. 2. Hyperkalemia. Appears to be a manifestation of renal failure, will screen for other potential causes. This will be corrected with effective hemodialysis and will get follow up labs afterwards. 3. Multisystem organ failure given the recent admission with pneumonia and possible urinary tract infection, she's currently being treated for sources of infection with cultures sent and pending. 4. Respiratory failure different management to the ICU team in terms of weaning her off the vent over the next few days. Prognosis remains very guarded at this time. Interview and evaluation for invited telemedicine. The case was discussed at length with Dr. Faulkner and ICU RNs at bedside Coding Level of Care Code Acute Client Sales And Service Officer for Am[facility] Haddad
[2019-09-27 11:12] LABS: Add Urine Microscopic? YES; Bilirubin Urine Neg (NEGATIVE); Blood Urine 2+ (Negative); Glucose Urine UA Norm (Normal); Ketones Urine Negative (Negative); Leukocyte Esterase Urine 2+ (Negative); Nitrate Urine Negative (Negative); Protein Urine 2+ (Negative); Urine Appearance Turbid (CLEAR); Urine Color Yellow (Yellow); Urobilinogen Urine Norm (Negative); pH Urine 5 (5-7)
[2019-09-27 11:22] LABS: Bacteria Urine 2+; RBC Urine 0-4 /hpf (0-2); Squamous Epithelial Cell Urine 0-4 (0-5); WBC Urine TOO NUMEROUS TO CNT /hpf (0-5)
[2019-09-27 11:23] LABS: Add Urine Culture? Yes; Amorphous Sediment Urine 3+
--- NOTE | 2019-09-27 11:23 | PC.NURSE ---
at bedside. procedure being done now.
[2019-09-27 11:24] LABS: Urine Random Sodium 35 mmol/L
[2019-09-27 11:25] LABS: Hepatitis B Surface AB. 3.5 (0-8.5)
[2019-09-27 11:26] LABS: Creatine Phosphokinase 39 U/L (26-192); Thyroid Stimulating Hormone 1.32 uIU/mL (0.27-4.20)
--- NOTE | 2019-09-27 11:27 | P.PN_ITS ---
Subjective Subjective: Interval history: Patient well known to me, chart reviewed, tunneled HD catheter being placed as will require emergent dialysis given persistent hyperkalemia and significant renal impairment. Remains on vent support. Noted to be quite bradycardic in the 30s. Currently receiving hemodialysis. Seen several times throughout the day. Removal of 2800 mL with HD. Heart rate was improved during dialysis, currently in the 50s. Repeat chemistry about 2 hrs following dialysis. Medications: Reviewed: Yes Medication Review Details: Current Medications Generic Name Dose Route Start Last Admin Trade Name Freq PRN Reason Stop Dose Admin Albuterol/Ipratrop ium 3 ml 09/27/19 08:00 09/27/19 11:15 Duoneb INHALATION 3 ml Q4H MADELEINE Administration Amlodipine Besylat e 5 mg 09/27/19 09:00 09/27/19 09:46 Norvasc PO 5 mg BID MADELEINE Administration Bumetanide 2 mg 09/27/19 09:00 09/27/19 09:47 Bumex IV 2 mg BID MADELEINE Administration Enoxaparin Sodium 40 mg 09/27/19 02:14 09/27/19 04:18 Lovenox SUBCUT 40 mg Q24H MADELEINE Administration Ferrous Sulfate 300 mg 09/27/19 09:15 09/27/19 10:14 Ferrous Sulfate PO 300 mg QAM MADELEINE Administration Fluoxetine HCl 20 mg 09/27/19 09:00 09/27/19 09:46 Prozac PO 20 mg DAILY MADELEINE Administration Propofol 1,000 mg in 100 m ls @ 0 mls/hr 09/27/19 01:00 09/27/19 09:43 Diprivan IV 35.9 mcg/kg/min .Q0M MADELEINE 34.2 mls/hr Administration Protocol Per Protocol Piperacillin Sod/T azobactam 50 mls @ 12.5 mls /hr 09/27/19 03:00 09/27/19 07:54 Sod 3.375 gm/ So dium Chloride IV Infused Q8H MADELEINE Infusion Protocol As Directed Insulin Aspart 0 unit 09/27/19 08:00 09/27/19 07:32 Novolog SUBCUT 6 unit TIDWM MADELEINE Administration Protocol Isosorbide Mononit rate 60 mg 09/27/19 09:00 09/27/19 09:46 Imdur PO 60 mg BID MADELEINE Administration Methylprednisolone Sodium Succinate 40 mg 09/27/19 02:14 09/27/19 04:17 Solu-Medrol IVP 40 mg Q8H MADELEINE Administration Metolazone 10 mg 09/27/19 02:14 09/27/19 09:46 Zaroxolyn PO 10 mg DAILY MADELEIEN Administration Multivitamins Ther apeutic 1 tab 09/27/19 09:00 09/27/19 09:46 Multivitamin Tab PO 1 tab DAILY MADELEINE Administration Oseltamivir Phosph ate 75 mg 09/27/19 09:00 09/27/19 09:46 Tamiflu PO 75 mg BID MADELEINE Administration Pantoprazole [place] m 40 mg 09/27/19 09:00 09/27/19 09:47 Protonix PO 40 mg DAILY MADELEINE Administration Rocuronium [place] 200 mg 09/27/19 00:29 09/27/19 00:43 Zemuron IV 200 mg Q1H PRN Administration NEEDED FOR FEV ER OR PAIN Senna 8.6 mg 09/27/19 09:00 09/27/19 09:46 Senna Lax PO 8.6 mg BID MADELEINE Administration Vitals/I&O/Wt Last Vital Signs Temp 97.6 F 09/27/19 09:00 Pulse 38 L 09/27/19 11:23 Resp 18 09/27/19 11:20 BP 127/58 09/27/19 10:30 Pulse Ox 995 H 09/27/19 11:20 09/26/19 09/27/19 09/27/19 22:59 06:59 14:59 Intake Total 99.59 / 99.59 Output Total 100 / 100 Balance -100 / -100 99.59 / 99.59 Weight last 48 hrs Weight 157.759 kg Weight 158.757 kg Physical Exam Const: COMMON NORMALS: no apparent distress GENERAL APPEARANCE: cooperative and comfortable NUTRITIONAL APPEARANCE: obese morbidly obese HENMT: COMMON NORMALS: normocephalic, head/scalp atraumatic, hearing grossly normal bilaterally and moist oral mucous membranes HEAD & SCALP: normocephalic and atraumatic OTHER: -ETT: 24 cm @ lip Eye: COMMON NORMALS: PERRL, EOMs intact bilaterally and conjunctivae normal CONJUNCTIVA: Yes conjunctivae normal PUPIL: Yes PERRL Neck/C-Spine: GENERAL: Yes trachea midline OTHER: short, thick neck Resp: COMMON NORMALS: normal respiratory effort, no retractions and no use of accessory muscles EFFORT & INSPECTION: Yes symmetric chest movement and No tachypneic OTHER: -auscultation limited by body habitus -on vent support; 70%/450/10 Cardio: COMMON NORMALS: regular rate, regular rhythm, S1 normal heart sound, S2 normal heart sound and no murmurs RATE: regular rate RHYTHM: regular rhythm HEART SOUNDS: S1 normal and S2 normal GI: COMMON NORMALS: normal to inspection, nondistended, normoactive bowel sounds, soft to palpation and non-tender INSPECTION: Yes central obesity PALPATION: Yes soft : OTHER: -femoral (R) tunneled catheter Extremity: COMMON NORMALS: normal to inspection, full ROM and no clubbing, cyanosis or edema; negative for no pedal edema Neuro: COMMON NORMALS: no focal motor deficits OTHER: sedated Psych: OTHER: sedated Skin: OTHER: -chronic venous stasis dermatitis on bilateral lower extremities Urinary Catheter Management^: Daniel: Cath Placed During This Visit: no Urethral Indwelling: Yes Reason for Continuing Indwelling Catheter: Accurate Measurement of Urinary Output in Critically Ill Patients Data : 09/26/19 21:14 09/27/19 03:50 Micro: Microbiology 09/27/19 02:05 Sputum Culture - Preliminary Sputum - Endotracheal Tube Aspirate A&P Assessment and plan (1) Acute kidney injury: -ROBBIE on CKD stage 4; baseline Cr is around 2-3 -continue to monitor renal function -Nephrology consult appreciated; needs emergent dialysis, tunneled catheter being placed -renally dose meds, avoid nephrotoxins -has Daniel catheter in place, monitor urine output Status: Acute Code(s): N17.9 - Acute kidney failure, unspecified (2) Acute hyperkalemia: -persistent hyperkalemia despite medical intervention -will receive emergent dialysis Status: Acute Code(s): E87.5 - Hyperkalemia (3) Acute on chronic respiratory failure with hypoxia and hypercapnia: -required intubation and remains on vent support; wean as appropriate -is oxygen dependent at baseline, 2 L, BiPAP qhs -BNP: 46,000; chronically elevated -CXR: bilateral pulmonary vascular congestion -on IV steroids, empiric antibiotics -ABG noted with hypercapnia and hypoxia -influenza B positive; on droplet precautions, on Tamiflu -f/u blood cx Status: Acute Code(s): J96.21 - Acute and chronic respiratory failure with hypoxia; J96.22 - Acute and chronic respiratory failure with hypercapnia (4) Congestive heart failure: -Echo: EF=55%, no RWMA, G2DD, mild TR -on IV diuresis with Bumex -off vent support -daily weights, monitor Is & Os Status: Acute Qualifiers: Heart failure chronicity: acute on chronic Heart failure type: diastolic Qualified Code(s): I50.33 - Acute on chronic diastolic (congestive) heart failure Code(s): I50.9 - Heart failure, unspecified Additional A&P Information -HTN -Acute on chronic normocytic anemia; baseline Hg 7-8. Continue to monitor H/H. Has had GI w/u done before showing antral petechiae and colonoscopy showing diverticulosis; no active bleeding (12/2016) -IDDM type II; A1c-5.5 -Morbid obesity: BMI-56 kg/m2 -Chronic constipation -Peripheral vascular disease -Depression, anxiety -Bradycardia; chronic; Atropine PRN -UTI; on antibiotics; f/u urine cx -hx of R hydronephrosis s/p ureteral stent. Daniel catheter in place -continue meds as ordered -fall precautions -NPO currently -DVT ppx with heparin; monitor H/H closely -Dispo: return to [facility] -Code status: FULL code Attestations Medical Necessity Statement*: Patient requires hospitalization for continued vent support, management of acute renal impairment and hyperkalemia requiring emergent dialysis. Time Spent in Patient Care: Greater than 35 minutes (>than 50% of time spent in counselling and/or direct pt care on unit) . Critical Care Time: The high probability of a clinically significant, sudden or life threatening deterioration of the patient's [respiratory and cardiovascul ar] system(s) required my full and direct attention, intervention and personal management. The critical care time is as shown. This time is in addition to time spent performing any reported procedures but includes the following: [x] Data and vital sign review and interpretation [x] Patient assessment, examination and intervention [x] Documentation [x] Medication orders and management Critical Care Time (min): 30 Coding Level of Care Code Acute Svp Operations for [facility] Fwd Exam Problem Focused Diagnoses Acute kidney injury N17.9 Acute hyperkalemia E87.5 Acute on chronic respiratory failure with hypoxia and hypercapnia J96.21; J96.22 Congestive heart failure I50.33 Heart failure chronicity: acute on chronic Heart failure type: diastolic
[2019-09-27 11:28] LABS: Urine Creatinine < 4 mg/dL (28-217)
--- NOTE | 2019-09-27 11:38 | PC.NURSE ---
Dialysis port placed by . Flushed with Heparin by Surgeon. JASKARAN Dowell notified via telephone of patient being bradycardic with rate in 30s.
--- NOTE | 2019-09-27 11:42 | P.OP_ITS ---
Operative Report Date of procedure: September 27, 2019 Pre-op Diagnosis: Acute renal failure. Post-op diagnosis: same Procedure Done: Temporary hemodialysis catheter placement into the right femoral vein. Pathology: none sent Surgeon: Ta Moore Anesthesia: Local Estimated blood loss (mL): 10 Disposition: ICU Procedure: The patient was encountered in her room in the ICU. She was already intubated. The right femoral pulse was obvious on exam, despite the patient being bradycardic. The right femoral region was prepped and draped in a sterile fashion. 1% lidocaine was used for local anesthetic. The right femoral vein was accessed with a needle and syringe as evidenced by the return of dark nonpulsatile blood. The J-wire was passed down the needle and the needle was removed. A small incision was made at the skin with a scalpel and then the tract was sequentially dilated with the dilators provided in the kit. A 16 Indonesian temporary arrow hemodialysis catheter was placed over the wire and the wire was removed. The ports aspirated well and were flushed with a heparin solution. The catheter was sewn in place with some sutures of 3-0 nylon. A sterile dressing was applied.
--- NOTE | 2019-09-27 11:44 | PM.CONSULT ---
Providers/Reason For Consult Consulting Physican/Specialty*: General Surgery Ta Moore MD Reason for Consult*: Requesting urgent hemodialysis catheter placement. Attending Physician: Brisa Khoury MD Primary Care Provider: Keith Cortez DO History of Present Illness History of Present Illness Lia Aguirre is a 59 year old female admitted with acute renal failure and hyperkalemia. I have been asked to provide urgent hemodialysis catheter access for dialysis. Review of Systems General: Reports: ROS unobtainable due to medical condition Meds/Allergies Home Medications and Allergies Home Medications Medication Instructions Recorded Confirmed Type Fleet Enema 1 ml DE DAILY PRN 08/23/19 09/27/19 History Renvela 800 mg PO TIDWM 08/23/19 09/27/19 History Senokot 1 tab PO BID 08/23/19 09/27/19 History acetaminophen [Acetaminophen Pain 500 mg PO Q6H PRN 08/23/19 09/27/19 History Relief] amlodipine 5 mg PO BID 08/23/19 09/27/19 History cetirizine [Zyrtec] 10 mg PO DAILY 08/23/19 09/27/19 History ferrous sulfate 325 mg PO QAM 08/23/19 09/27/19 History fluoxetine 20 mg PO DAILY 08/23/19 09/27/19 History gabapentin 300 mg PO BEDTIME 08/23/19 09/27/19 History isosorbide mononitrate 60 mg PO BID 08/23/19 09/27/19 History magnesium hydroxide [Milk of 30 ml PO DAILY PRN 08/23/19 09/27/19 History Magnesia] multivitamin 1 cap PO DAILY 08/23/19 09/27/19 History pantoprazole [Protonix] 40 mg PO DAILY 08/23/19 09/27/19 History bisacodyl 10 mg PO DAILY PRN 09/27/19 09/27/19 History bisacodyl 10 mg DE DAILY PRN 09/27/19 09/27/19 History Allergies Allergy/AdvReac Type Severity Reaction Status Date / Time clarithromycin [From Biaxin] Allergy HEAVINESS Verified 09/06/19 17:08 IN CHEST hydralazine Allergy ALGY-Hives Verified 08/24/19 02:48 Current Medications Current Medications Generic Name Dose Route Start Last Admin Trade Name Freq PRN Reason Stop Dose Admin Albuterol/Ipratropium 3 ml 09/27/19 08:00 09/27/19 11:15 Duoneb INHALATION 3 ml Q4H MADELEINE Administration Amlodipine Besylate 5 mg 09/27/19 09:00 09/27/19 09:46 Norvasc PO 5 mg BID MADELEINE Administration Bumetanide 2 mg 09/27/19 09:00 09/27/19 09:47 Bumex IV 2 mg BID MADELEINE Administration Enoxaparin Sodium 40 mg 09/27/19 02:14 09/27/19 04:18 Lovenox SUBCUT 40 mg Q24H MADELEINE Administration Ferrous Sulfate 300 mg 09/27/19 09:15 09/27/19 10:14 Ferrous Sulfate PO 300 mg QAM MADELEINE Administration Fluoxetine HCl 20 mg 09/27/19 09:00 09/27/19 09:46 Prozac PO 20 mg DAILY MADELEINE Administration Propofol 1,000 mg in 100 mls @ 0 mls/hr 09/27/19 01:00 09/27/19 09:43 Diprivan IV 35.9 mcg/kg/min .Q0M MADELEINE 34.2 mls/hr Administration Protocol Per Protocol Piperacillin Sod/Tazobactam 50 mls @ 12.5 mls/hr 09/27/19 03:00 09/27/19 07:54 Sod 3.375 gm/ Sodium Chloride IV Infused Q8H MADELEINE Infusion Protocol As Directed Insulin Aspart 0 unit 09/27/19 08:00 09/27/19 07:32 Novolog SUBCUT 6 unit TIDWM [facility] Administration Protocol Isosorbide Mononitrate 60 mg 09/27/19 09:00 09/27/19 09:46 Imdur PO 60 mg BID MADELEINE Administration Methylprednisolone Sodium Succinate 40 mg 09/27/19 02:14 09/27/19 04:17 Solu-Medrol IVP 40 mg Q8H MADELEINE Administration Metolazone 10 mg 09/27/19 02:14 09/27/19 09:46 Zaroxolyn PO 10 mg DAILY MADELEINE Administration Multivitamins Therapeutic 1 tab 09/27/19 09:00 09/27/19 09:46 Multivitamin Tab PO 1 tab DAILY MADELEINE Administration Oseltamivir Phosphate 75 mg 09/27/19 09:00 09/27/19 09:46 Tamiflu PO 75 mg BID MADELEINE Administration Pantoprazole Sodium 40 mg 09/27/19 09:00 09/27/19 09:47 Protonix PO 40 mg DAILY MADELEINE Administration Rocuronium [place] 200 mg 09/27/19 00:29 09/27/19 00:43 Zemuron IV 200 mg Q1H PRN Administration NEEDED FOR FEVER OR PAIN Senna 8.6 mg 09/27/19 09:00 09/27/19 09:46 Senna Lax PO 8.6 mg BID MADELEINE Administration PFSH Acute PFSH: Statuses (acute, chronic, etc) shown below reflect problem list status as previously entered and may not be historically accurate Medical History (Updated 09/27/19 @ 11:37 by Brisa Khoury MD) Anemia (Acute) Anxiety (Acute) Chronic constipation (Acute) Chronic kidney disease (Acute) Chronic kidney disease (CKD) (Acute) Chronic UTI (urinary tract infection) (Acute) Congestive heart failure (Acute) Depression (Acute) Diabetes mellitus, type II (Acute) Gastroesophageal reflux (Acute) Hydronephrosis of right kidney (Acute) Hypertension (Acute) Obesity hypoventilation syndrome (Acute) ABDIAFTAH treated with BiPAP (Acute) Osteomyelitis of ankle (Acute) Peripheral vascular disease (Acute) Pulmonary hypertension (Acute) Retained ureteral stent (Acute) Surgical History (Updated 09/27/19 @ 01:44 by Gaston Faulkner MD) History of ankle surgery (Acute) History of ureter stent (Acute) Hx of hemorrhoidectomy (Acute) Hx of hernia repair (Acute) Hx of hysterectomy (Acute) Family History (Updated 09/06/19 @ 17:14 by CALOS Lewis) Mother , AT AGE 90 Hypertension Father , AT AGE 59 Diabetes Social History (Updated 09/06/19 @ 17:15 by CALOS Lewis) Smoking and tobacco status: former smoker Quit status (tobacco): has quit using tobacco Alcohol intake: never Adopted: No Caregiver/support person: No Lives independently: No Housing: Longterm Current occupational status: disabled Vitals/I&O/Wt Last Vital Signs Temp 97.6 F 09/27/19 09:00 Pulse 38 L 09/27/19 11:23 Resp 18 09/27/19 11:20 BP 127/58 09/27/19 10:30 Pulse Ox 95 09/27/19 11:20 0209/27/19 09/27/19 22:59 06:59 14:59 Intake Total 99.59 / 99.59 Output Total 100 / 100 Balance -100 / -100 99.59 / 99.59 Weight last 48 hrs Weight 347 lb 12.8 oz Weight 350 lb Physical Exam Narrative: EXAM NARRATIVE: The patient is intubated in the ICU. She is morbidly obese. She is bradycardic but her blood pressure is adequate. The right femoral pulse is easily palpable. Urinary Catheter Management^: Daniel: Cath Placed During This Visit: no Data Micro: Micro: Microbiology 09/27/19 02:05 Sputum Culture - P reliminary Sputum - Endotrac heal Tube Aspirate A&P Assessment and plan (1) Acute kidney injury: Plan urgent hemodialysis catheter placement in a femoral location, as the patient may not do well with any complication of a jugular or subclavian approach at this time. She has been on Lovenox earlier this morning. Status: Acute Code(s): N17.9 - Acute kidney failure, unspecified (2) Acute hyperkalemia: Status: Acute Code(s): E87.5 - Hyperkalemia (3) Acute on chronic respiratory failure with hypoxia and hypercapnia: Status: Acute Code(s): J96.21 - Acute and chronic respiratory failure with hypoxia; J96.22 - Acute and chronic respiratory failure with hypercapnia (4) Congestive heart failure: Status: Acute Qualifiers: Heart failure type: diastolic Heart failure chronicity: acute on chronic Qualified Code(s): I50.33 - Acute on chronic diastolic (congestive) heart failure Code(s): I50.9 - Heart failure, unspecified Additional A&P Information -Code status: FULL code Consult Attestations Medical Necessity Statement: See admitting service's notation. Coding Level of Care Code Acute Beater Operator for Amelia Haddad Diagnoses Acute kidney injury N17.9 Acute hyperkalemia E87.5 Acute on chronic respiratory failure with hypoxia and hypercapnia J96.21; J96.22 Congestive heart failure I50.33 Heart failure type: diastolic Heart failure chronicity: acute on chronic
[2019-09-27 11:49] LABS: Hepatitis B Surface Antigen. Non-Reactive (Nonreactive)
[2019-09-27] MEDS: heparin 5,000 unit/mL INJ 1 mL 5000 UNIT IVP (11:49)
--- NOTE | 2019-09-27 11:51 | PC.NURSE ---
Dialysis nurse and at bedside. JASKARAN Christopher
--- NOTE | 2019-09-27 12:42 | PC.NURSE ---
Atropine not given due to heart rate increase to 46. Heart rate:46 BP: 161/70 O2: 100% RR:22 L.JASKARAN Lehman
[2019-09-27 12:43] LABS: Glucose Point of Care 129 mg/dL (70-110)
[2019-09-27] MEDS: propofol 1,000 MG/100 ML INJ 22.8 MG IV ×3 (12:49→21:10)
--- NOTE | 2019-09-27 13:07 | PC.CHAP ---
Pastoral Care Encounter/Spiritual Assessment Type of Contact [] Declined geographic information systems director visit [] Patient/Family/Request visit [] Outpatient visit [] Follow-up visit [] Physician referral [] Code/Alert [] Routine visit [] Staff referral [] Actively dying [] Patient sleeping [] Family support [] [] Out of room [] Palliative care [] [] Receiving care in room [] Pre-surgical visit [] Trauma [] Long length of stay [] ICU visit [] Other: Relational/Emotional Strength [] Patient feels connected with others/family/visitors/staff [] Distress [] Loneliness/isolation [] Abandonment Spirituality of Patient [] Person of [place] [] Attends Voodoo of their [place] [] Believes in Prayer [] Reads Bible or Sikhism materials [] There are Spiritual issues to be addressed Oil Well Services Supervisor Interventions [] Prayer [] Active listening [] Non-anxious presence [] Spiritual/emotional support [] Crisis/trauma care [] Spiritual counseling [] Bereavement support [] Provided bereavement packet [] Provided Bible/devotional materials [] Provided toy/stuffed animal, coloring book to patient or family member [] Provided Communion [] Anointing/[place] [] Salvation [] Completed spiritual assessment [] Other: Impact on Illness or Injury [] Angry [] Fearful [] Anxious [] Often cries [] Exhaustion [] Unable to work [] Unable to attend orthodoxy [] Unable to walk/stand [] Unable to read [] Unable to drive [] Unable to eat/drink [] Unable to sleep [] Unable to be with family [] Patient intubated [] Other: Summary THE PATIENT WAS IN ISOLATION. The geographic information systems director prayed for her outside the door. Time spent with patient
--- NOTE | 2019-09-27 15:12 | PC.NURSE ---
dialysis in progress
--- NOTE | 2019-09-27 17:43 | XRR_ITS ---
PROCEDURE INFORMATION: Exam: XR Chest, 1 View Exam date and time: 09/27/2019 6:16 PM Age: 59 years old Clinical indication: Device placement; Prior surgery; Surgery date: Post-operative (0-2 days); Surgery type: Port placement TECHNIQUE: Imaging protocol: XR of the chest Views: 1 view. COMPARISON: CR XR chest 1V portable [id number] 09/27/2019 11:02 AM FINDINGS: Tubes, catheters and devices: The endotracheal tube now ends 1.5 cm above the gladys. Nasogastric tube enters the stomach and extends beyond the limits of the film. The chest is less rotated than on the prior exam but is still not a true AP view. A right subclavian venous access port the ends in the midline in the approximate location of the superior vena cava. Lungs: Persisting left lower lobe atelectasis with air bronchograms. Persisting patchy right lower lobe infiltrates. Pleural space: Unremarkable. No pleural effusion. No pneumothorax. Heart/Mediastinum: The heart still appears enlarged. Bones/joints: Unremarkable. XR/XR chest 1V portable [id number] IMPRESSION: 1. Persisting left lower lobe atelectasis or consolidation and patchy right lower lobe infiltrates 2. Venous access port ends in the midline, approximately in the superior vena cava.
[2019-09-27 17:49] LABS: Glucose Point of Care 132 mg/dL (70-110)
[2019-09-27 19:38] LABS: Anion Gap 17.6 (5-19); Blood Urea Nitrogen 49 mg/dL (8-23); Calcium 8.8 mg/dL (8.5-10.5); Carbon Dioxide 25 mmol/L (22-29); Chloride 99 mmol/L (98-107); Glomerular Filtration Rate 14.7 mL/min (90-130); Glucose 152 mg/dL (65-115); Osmolality Calculated 285 mOsm/kg (285-295); Potassium 4.6 mmol/L (3.5-5.1); Sodium 137 mmol/L (136-145)
[2019-09-27] MEDS: vancomycin 750 MG in sodium chloride 0.9% 250 ML 250 MG IV (19:45)
[2019-09-27] MEDS: gabapentin 300 mg Capsule PO (21:12)
[2019-09-27 21:36] LABS: Glucose Point of Care 223 mg/dL (70-110)
[2019-09-28] VITALS (34 sets, daily range): BP systolic 120–147; BP diastolic 52–75; PULSE 41–83; RESP 17–23; TEMP 36.7–37.6; O2SAT 91–99; BMI 56.5
[2019-09-28] MEDS: ipratropium-albuterol 3 mL Neb INHALATION ×7 (00:30→23:41)
[2019-09-28] MEDS: enoxaparin 40 mg/0.4 mL Syringe SUBCUT (01:40)
[2019-09-28] MEDS: propofol 1,000 MG/100 ML INJ 22.8 MG IV (01:40)
[2019-09-28 04:14] LABS: Basophils % 0.1 %; Hematocrit 23.9 % (37.0-47.0); Hemoglobin 7.1 g/dL (11.5-15.3); Lymphocytes # 0.2 10^3/uL (0.8-4.8); Lymphocytes % 2.2 %; Mean Corpuscular HGB Conc 29.7 g/dL (30.0-36.0); Mean Corpuscular Hemoglobin 26.7 pg (28.0-34.0); Mean Corpuscular Volume 89.8 fL (81-99); Mean Platelet Volume 9.7 fL (7.4-10.4); Monocytes # 0.1 10^3/uL (0.2-0.9); Monocytes % 0.6 %; Neutrophils # 9.9 10^3/uL (1.8-7.7); Neutrophils % 96.1 %; Nucleated Red Blood Cells % 0 %; Platelet Count 246 10^3/cmm (130-400); Red Blood Count 2.66 10^6/uL (4.1-5.3); Red Cell Distribution Width 16.3 % (12.1-15.1); White Blood Count 10.3 10^3/uL (4.0-10.0)
[2019-09-28] MEDS: piperacillin-tazobactam 3.375 GM in sodium chloride 0.9% (plus) 50 ML IV ×3 (04:42→20:09)
[2019-09-28 04:43] LABS: ABG PH Result 7.36 (7.35-7.45); Arterial Blood Gas Hematocrit 26.4 % (37-47); Base Excess ABG 0.6 mmol/L (-2.0-2.0); Blood Gas Allen Test Pos; Blood Gas Sample Site Radial, right; Blood Gas Sample Type Arterial; Blood Gas Tidal Volume 0.45; HCO3 ABG 26.2 mmol/L (22-26); Oxygen Device VENT; PO2 ABG 71.1 mmHg (80.0-100.0)
[2019-09-28 05:06] LABS: Alanine Aminotransferase < 5 U/L (0-33); Albumin Level 2.9 g/dL (3.5-5.2); Alkaline Phosphatase 71 IU/L (35-105); Anion Gap 21.9 (5-19); Aspartate Amino Transferase 8 U/L (0-32); Blood Urea Nitrogen 42 mg/dL (8-23); Calcium 8.8 mg/dL (8.5-10.5); Carbon Dioxide 23 mmol/L (22-29); Chloride 97 mmol/L (98-107); Globulin 3.9 g/dL (1.3-4.6); Glomerular Filtration Rate 13.3 mL/min (90-130); Phosphorus 5.3 mg/dL (2.5-4.5); Potassium 5.9 mmol/L (3.5-5.1); Sodium 136 mmol/L (136-145); Total Bilirubin 0.6 mg/dL (0.15-1.2); Total Protein 6.8 g/dL (6.6-8.7)
[2019-09-28] MEDS: propofol 1,000 MG/100 ML INJ 23.8 MG IV ×4 (05:42→15:08)
[2019-09-28 07:19] LABS: Glucose Point of Care 265 mg/dL (70-110)
--- NOTE | 2019-09-28 07:40 | PC.NURSE ---
Tube feeding temporarily stopped residual checked at 0700 with return of 175ml. tube feeding stopped at this time.
[2019-09-28] MEDS: multivitamin therapeutic Tablet 1 TAB PO (08:39)
[2019-09-28] MEDS: pantoprazole DR 40 mg Tablet PO (08:39)
[2019-09-28] MEDS: amlodipine 5 mg Tablet PO ×2 (08:40→17:47)
[2019-09-28] MEDS: isosorbide mononitrate ER 30 mg Tablet 60 MG PO ×2 (08:40→17:47)
[2019-09-28] MEDS: oseltamivir phosphate 75 mg Capsule PO ×2 (08:41→17:47)
[2019-09-28] MEDS: metOLazone 5 MG Tablet 10 MG PO (08:42)
[2019-09-28] MEDS: sennosides 8.6 mg Tablet PO ×2 (08:43→17:47)
[2019-09-28] MEDS: fluoxetine 20 mg Capsule PO (08:43)
[2019-09-28] MEDS: sevelamer 800 mg Tablet PO ×3 (08:48→17:48)
[2019-09-28] MEDS: bumetanide 0.25 mg/mL SDV 10 mL 2 MG IV ×2 (09:00→18:21)
[2019-09-28 09:11] LABS: Glucose 279 mg/dL (65-115)
--- NOTE | 2019-09-28 10:11 | PC.CHAP ---
Pastoral Care Encounter/Spiritual Assessment Type of Contact [] Declined home sales service professional visit [] Patient/Family/Request visit [] Outpatient visit [] Follow-up visit [] Physician referral [] Code/Alert [] Routine visit [] Staff referral [] Actively dying [] Patient sleeping [] Family support [] [] Out of room [] Palliative care [] [] Receiving care in room [] Pre-surgical visit [] Trauma [] Long length of stay [] ICU visit [] Other: Relational/Emotional Strength [] Patient feels connected with others/family/visitors/staff [] Distress [] Loneliness/isolation [] Abandonment Spirituality of Patient [] Person of [place] [] Attends Buddhist of their [place] [] Believes in Prayer [] Reads Bible or Episcopalian materials [] There are Spiritual issues to be addressed Systems Support Officer Interventions [] Prayer [] Active listening [] Non-anxious presence [] Spiritual/emotional support [] Crisis/trauma care [] Spiritual counseling [] Bereavement support [] Provided bereavement packet [] Provided Bible/devotional materials [] Provided toy/stuffed animal, coloring book to patient or family member [] Provided Communion [] Anointing/[place] [] Salvation [] Completed spiritual assessment [] Other: Impact on Illness or Injury [] Angry [] Fearful [] Anxious [] Often cries [] Exhaustion [] Unable to work [] Unable to attend pentecostalism [] Unable to walk/stand [] Unable to read [] Unable to drive [] Unable to eat/drink [] Unable to sleep [] Unable to be with family [] Patient intubated [] Other: Summary The patient was on life support and sleeping. The home sales service professional prayed for the patient outside the door. Time spent with patient 6 min.
--- NOTE | 2019-09-28 10:23 | PC.NURSE ---
Dialysis Dialysis nurse at bedside.
--- NOTE | 2019-09-28 10:31 | P.PN_ITS ---
Subjective Subjective: Interval history: AM labs noted, minimal urine output overnight, hemodialysis currently ongoing. Noted drop in hemoglobin so will transfuse 1 unit of PRBCs. Arousable to verbal and tactile stimulation. Remains on vent support, FiO2-60%, breathing over the vent. Medications: Reviewed: Yes Medication Review Details: Current Medications Generic Name Dose Route Start Last Admin Trade Name Freq PRN Reason Stop Dose Admin Albuterol/Ipratrop ium 3 ml 09/27/19 08:00 09/28/19 07:30 Duoneb INHALATION 3 ml Q4H MADELEINE Administration Amlodipine Besylat e 5 mg 09/27/19 09:00 09/28/19 08:40 Norvasc PO 5 mg BID MADELEINE Administration Bumetanide 2 mg 09/27/19 09:00 09/28/19 09:00 Bumex IV 2 mg BID MADELEINE Administration Ferrous Sulfate 300 mg 09/27/19 09:15 09/28/19 05:42 Ferrous Sulfate PO 300 mg QAM MADELEINE Administration Fluoxetine HCl 20 mg 09/27/19 09:00 09/28/19 08:43 Prozac PO 20 mg DAILY MADELEINE Administration Gabapentin 300 mg 09/27/19 21:00 09/27/19 21:12 Neurontin PO 300 mg BEDTIME MADELEINE Administration Propofol 1,000 mg in 100 m ls @ 0 mls/hr 09/27/19 01:00 09/28/19 09:06 Diprivan IV 25 mcg/kg/min .Q0M MADELEINE 23.8 mls/hr Administration Protocol Per Protocol Vancomycin HCl 750 mg/ Sodium 250 mls @ 250 mls /hr 09/27/19 04:00 09/27/19 20:45 Chloride IV Infused Q24H MADELEINE Infusion Protocol As Directed Piperacillin Sod/T azobactam 50 mls @ 12.5 mls /hr 09/27/19 03:00 09/28/19 08:50 Sod 3.375 gm/ So dium Chloride IV Infused Q8H MADELEINE Infusion Protocol As Directed Insulin Aspart 0 unit 09/27/19 08:00 09/28/19 07:23 Novolog SUBCUT 10 unit TIDWM MADELEINE Administration Protocol Isosorbide Mononit rate 60 mg 09/27/19 09:00 09/28/19 08:40 Imdur PO 60 mg BID MADELEINE Administration Methylprednisolone Sodium Succinate 40 mg 09/27/19 02:14 09/28/19 01:40 Solu-Medrol IVP 40 mg Q8H MADELEINE Administration Metolazone 10 mg 09/27/19 02:14 09/28/19 08:42 Zaroxolyn PO 10 mg DAILY MADELEINE Administration Multivitamins Ther apeutic 1 tab 09/27/19 09:00 09/28/19 08:39 Multivitamin Tab PO 1 tab DAILY MADELEINE Administration Oseltamivir Phosph ate 75 mg 09/27/19 09:00 09/28/19 08:41 Tamiflu PO 75 mg BID MADELEINE Administration Pantoprazole [place] m 40 mg 09/27/19 09:00 09/28/19 08:39 Protonix PO 40 mg DAILY MADELEINE Administration Rocuronium [place] 200 mg 09/27/19 00:29 09/27/19 00:43 Zemuron IV 200 mg Q1H PRN Administration NEEDED FOR FEV ER OR PAIN Senna 8.6 mg 09/27/19 09:00 09/28/19 08:43 Senna Lax PO 8.6 mg BID MADELEINE Administration Sevelamer [place]at e 800 mg 09/27/19 08:00 09/28/19 08:48 Renvela PO 800 mg TIDWM MADELEINE Administration Vitals/I&O/Wt Last Vital Signs Temp 99.0 F 09/28/19 02:05 Pulse 43 L 09/28/19 10:15 Resp 21 H 09/28/19 08:26 BP 127/52 09/28/19 10:15 Pulse Ox 95 09/28/19 10:15 09/27/19 09/28/19 09/28/19 22:59 06:59 14:59 Intake Total 440.38 / 639.97 241.96 / 881.93 130.92 / 130.92 Output Total 125 / 125 125 / 250 40 / 40 Balance 315.38 / 514.97 116.96 / 631.93 90.92 / 90.92 Weight last 48 hrs Weight 158.842 kg Weight 157.759 kg Weight 158.757 kg Physical Exam Const: COMMON NORMALS: no apparent distress GENERAL APPEARANCE: cooperative and comfortable NUTRITIONAL APPEARANCE: obese morbidly obese ORIENTATION/CONSCIOUSNESS: Yes awake HENMT: COMMON NORMALS: normocephalic, head/scalp atraumatic, hearing grossly normal bilaterally and moist oral mucous membranes HEAD & SCALP: normocephalic and atraumatic OTHER: -ETT: 24 cm @ lip Eye: COMMON NORMALS: PERRL, EOMs intact bilaterally and conjunctivae normal CONJUNCTIVA: Yes conjunctivae normal PUPIL: Yes PERRL Neck/C-Spine: COMMON NORMALS: full ROM GENERAL: Yes trachea midline OTHER: short, thick neck Resp: COMMON NORMALS: no retractions and no use of accessory muscles EFFORT & INSPECTION: Yes symmetric chest movement and No tachypneic AUSCULTATION: rhonchi throughout OTHER: -auscultation limited by body habitus -on vent support; 60%/450/10; breathing over vent Cardio: COMMON NORMALS: regular rhythm, S1 normal heart sound, S2 normal heart sound and no murmurs RATE: bradycardic (intermittently) RHYTHM: regular rhythm HEART SOUNDS: S1 normal and S2 normal GI: COMMON NORMALS: normal to inspection, nondistended, normoactive bowel sounds, soft to palpation and non-tender INSPECTION: Yes anasarca present, Yes central obesity and Yes pannus present PALPATION: Yes soft : OTHER: -femoral (R) tunneled catheter Extremity: COMMON NORMALS: normal to inspection and full ROM; negative for no pedal edema OTHER: -non-pitting edema on bilateral upper thighs and lower abdominal wall Neuro: COMMON NORMALS: no focal motor deficits OTHER: responsive to verbal and tactile stimulation Psych: OTHER: sedated Skin: COMMON NORMALS: no rashes or lesions noted, no jaundice, no petechiae and no mottling GENERAL SKIN EXAM: no rashes or lesions noted OTHER: - chronic venous stasis dermatitis on bilateral lower extremities -onychomycosis of bilateral toenails, worse on the R Urinary Catheter Management^: Daniel: Cath Placed During This Visit: yes Urethral Indwelling: Yes Reason for Continuing Indwelling Catheter: Accurate Measurement of Urinary Output in Critically Ill Patients Urinary Catheter Date of Insertion: 09/27/19 Urinary Catheter Time of Insertion: 00:05 Data : 09/28/19 03:50 09/28/19 03:50 Micro: Microbiology 09/27/19 02:05 Sputum Culture - Preliminary Sputum - Endotracheal Tube Aspirate 09/27/19 10:58 Urine Culture - Preliminary Urine,Clean Catch A&P Assessment and plan (1) Acute kidney injury: -ROBBIE on CKD stage 4; baseline Cr is around 2-3 -continue to monitor renal function -Nephrology consult appreciated -HD session 2 today; has tunneled catheter (femoral) in place -renally dose meds, avoid nephrotoxins -has Daniel catheter in place, monitor urine output Status: Acute Code(s): N17.9 - Acute kidney failure, unspecified (2) Acute hyperkalemia: -persistent hyperkalemia despite medical intervention responding to HD -continue to monitor Status: Acute Code(s): E87.5 - Hyperkalemia (3) Acute on chronic respiratory failure with hypoxia and hypercapnia: -required intubation and remains on vent support; wean as appropriate -is oxygen dependent at baseline, 2 L, BiPAP qhs -BNP: 46,000; chronically elevated -CXR: noted LLL atelectasis vs. consolidation and patchy RLL infiltrates -on IV steroids, empiric antibiotics -ABG noted with hypercapnia and hypoxia; improved oxygenation and slightly decreased hypercapnia today -influenza B positive; on droplet precautions, on Tamiflu (day 09/28) -f/u blood cx Status: Acute Code(s): J96.21 - Acute and chronic respiratory failure with hypoxia; J96.22 - Acute and chronic respiratory failure with hypercapnia (4) Congestive heart failure: -Echo: EF=55%, no RWMA, G2DD, mild TR -on IV diuresis with Bumex -on vent support -daily weights, monitor Is & Os -receiving HD Status: Acute Qualifiers: Heart failure chronicity: acute on chronic Heart failure type: diastolic Qualified Code(s): I50.33 - Acute on chronic diastolic (congestive) heart failure Code(s): I50.9 - Heart failure, unspecified Additional A&P Information -HTN -Acute on chronic normocytic anemia; baseline Hg 7-8. Continue to monitor H/H. Has had GI w/u done before showing antral petechiae and colonoscopy showing diverticulosis; no active bleeding (12/2016). Noted drop in hemoglobin today so will transfuse 1 unit PRBCs -IDDM type II; A1c-5.5 -Morbid obesity: BMI-56 kg/m2 -Chronic constipation -Peripheral vascular disease -Depression, anxiety -Bradycardia; chronic; Atropine PRN -UTI; on antibiotics; urine cx-mixed geoff -hx of R hydronephrosis s/p ureteral stent. Daniel catheter in place -continue meds as ordered -fall precautions -NPO currently as on vent support -DVT ppx with heparin; monitor H/H closely -Dispo: return to [facility] -Code status: FULL code -continue ICU care Attestations Medical Necessity Statement*: Patient requires hospitalization for continued management of acute on chronic respiratory failure, on vent support, and continued need for hemodialysis given renal impairment and persistent hyperkal emia. Time Spent in Patient Care: Greater than 35 minutes (>than 50% of time spent in counselling and/or direct pt care on unit) . Critical Care Time: The high probability of a clinically significant, sudden or life threatening deterioration of the patient's [respiratory, cardiovascular, and renal] system(s) required my full and direct attention, intervention and personal management. The critical care time is as shown. This time is in addition to time spent performing any reported procedures but includes the following: [x] Data and vital sign review and interpretation [x] Patient assessment, examination and intervention [x] Documentation [x] Medication orders and management Critical Care Time (min): 30 Coding Level of Care Code Acute Combination Machine Tender for Amelia Fwd Exam Problem Focused Diagnoses Acute kidney injury N17.9 Acute hyperkalemia E87.5 Acute on chronic respiratory failure with hypoxia and hypercapnia J96.21; J96.22 Congestive heart failure I50.33 Heart failure chronicity: acute on chronic Heart failure type: diastolic
--- NOTE | 2019-09-28 11:02 | PC.NURSE ---
Tube feeding continued tube feeding was continued at 10ml/hour.
[2019-09-28 11:13] LABS: Glucose Point of Care 227 mg/dL (70-110)
[2019-09-28] MEDS: sodium chloride 0.9% 100 ML 600 ML (12:45)
--- NOTE | 2019-09-28 13:17 | PC.NURSE ---
blood transfusion blood being administered by dialysis nurse.
--- NOTE | 2019-09-28 13:27 | PM.PN ---
Subjective Subjective: Interval history: remains intubated and vented. Dialyzed yesterday. Hemodynamics remains stable. Not on pressors. Correcting potassium did not help the bradycardia. FI02 70% still. She has significant global edema. Minimal urine output over the last 24hrs Medications: Reviewed: Yes Medication Review Details: Current Medications Generic Name Dose Route Start Last Admin Trade Name Nikq PRN Reason Stop Dose Admin Albuterol/Ipratrop ium 3 ml 09/27/19 08:00 09/28/19 07:30 Duoneb INHALATION 3 ml Q4H MADELEINE Administration Amlodipine Besylat e 5 mg 09/27/19 09:00 09/28/19 08:40 Norvasc PO 5 mg BID MADELEINE Administration Bumetanide 2 mg 09/27/19 09:00 09/28/19 09:00 Bumex IV 2 mg BID MADELEINE Administration Ferrous Sulfate 300 mg 09/27/19 09:15 09/28/19 05:42 Ferrous Sulfate PO 300 mg QAM MADELEINE Administration Fluoxetine HCl 20 mg 09/27/19 09:00 09/28/19 08:43 Prozac PO 20 mg DAILY MADELEINE Administration Gabapentin 300 mg 09/27/19 21:00 09/27/19 21:12 Neurontin PO 300 mg BEDTIME MADELEINE Administration Propofol 1,000 mg in 100 m ls @ 0 mls/hr 09/27/19 01:00 09/28/19 09:06 Diprivan IV 25 mcg/kg/min .Q0M MADELEINE 23.8 mls/hr Administration Protocol Per Protocol Vancomycin HCl 750 mg/ Sodium 250 mls @ 250 mls /hr 09/27/19 04:00 09/27/19 20:45 Chloride IV Infused Q24H MADELEINE Infusion Protocol As Directed Piperacillin Sod/T azobactam 50 mls @ 12.5 mls /hr 09/27/19 03:00 09/28/19 08:50 Sod 3.375 gm/ So dium Chloride IV Infused Q8H MADELEINE Infusion Protocol As Directed Insulin Aspart 0 unit 09/27/19 08:00 09/28/19 07:23 Novolog SUBCUT 10 unit TIDWM MADELEINE Administration Protocol Isosorbide Mononit rate 60 mg 09/27/19 09:00 09/28/19 08:40 Imdur PO 60 mg BID MADELEINE Administration Methylprednisolone Sodium Succinate 40 mg 09/27/19 02:14 09/28/19 01:40 Solu-Medrol IVP 40 mg Q8H MADELEINE Administration Metolazone 10 mg 09/27/19 02:14 09/28/19 08:42 Zaroxolyn PO 10 mg DAILY MADELEINE Administration Multivitamins Ther apeutic 1 tab 09/27/19 09:00 09/28/19 08:39 Multivitamin Tab PO 1 tab DAILY MADELEINE Administration Oseltamivir Phosph ate 75 mg 09/27/19 09:00 09/28/19 08:41 Tamiflu PO 75 mg BID MADELEINE Administration Pantoprazole Sodiu m 40 mg 09/27/19 09:00 09/28/19 08:39 Protonix PO 40 mg DAILY MADELEINE Administration Rocuronium [place] 200 mg 09/27/19 00:29 09/27/19 00:43 Zemuron IV 200 mg Q1H PRN Administration NEEDED FOR FEV ER OR PAIN Senna 8.6 mg 09/27/19 09:00 09/28/19 08:43 Senna Lax PO 8.6 mg BID MADELEINE Administration Sevelamer Carbonat e 800 mg 09/27/19 08:00 09/28/19 08:48 Renvela PO 800 mg TIDWM MADELEINE Administration Vitals/I&O/Wt Last Vital Signs Temp 98.0 F 09/28/19 13:21 Pulse 67 09/28/19 13:21 Resp 17 09/28/19 13:21 BP 129/57 09/28/19 13:21 Pulse Ox 97 09/28/19 13:21 09/27/19 09/28/19 09/28/19 22:59 06:59 14:59 Intake Total 440.38 / 639.97 241.96 / 881.93 657.477 / 657.477 Output Total 125 / 125 125 / 250 40 / 40 Balance 315.38 / 514.97 116.96 / 631.93 617.477 / 617.477 Weight last 48 hrs Weight 158.842 kg Weight 157.759 kg Weight 158.757 kg Physical Exam Const: COMMON NORMALS: no apparent distress ORIENTATION/CONSCIOUSNESS: Yes obtunded Neck/C-Spine: COMMON NORMALS: no JVD Lymph: LYMPHATIC: no lymphadenopathy noted Cardio: COMMON NORMALS: no JVD and regular rhythm; negative for regular rate (bradycardia) RATE: abnormal rate (bradycardia) RHYTHM: regular rhythm GI: INSPECTION: Yes normal to inspection and Yes abdominal wall ecchymosis Extremity: COMMON NORMALS: normal to inspection and full ROM Urinary Catheter Management^: Daniel: Cath Placed During This Visit: yes Urethral Indwelling: Yes Reason for Continuing Indwelling Catheter: Accurate Measurement of Urinary Output in Critically Ill Patients Urinary Catheter Date of Insertion: 09/27/19 Urinary Catheter Time of Insertion: 00:05 Data : 09/28/19 03:50 09/28/19 03:50 Micro: Microbiology 09/28/19 11:20 Blood Culture - Preliminary Blood SPECIMEN COLLECTED 09/28/19 11:01 Blood Culture - Preliminary Blood SPECIMEN COLLECTED 09/27/19 02:05 Sputum Culture - Preliminary Sputum - Endotracheal Tube Aspirate 09/27/19 10:58 Urine Culture - Preliminary Urine,Clean Catch A&P Additional A&P Information 1. Renal failure and critical hyperkalemia it is likely that she is now sustained another hit of significant infection/ischemic ATN. dialyzed emergently yesterday and will plan on dialyzing again today; 2K, UF 2-3 L some issues with dialysis cath and may need to be replaced if we keep having flow issues strict ins and outs left also therapy. 2. Hyperkalemia. Appears to be a manifestation of renal failure, will screen for other potential causes Came down to a safe level with dialysis ans will clean her further today to bring this down 3. Multisystem organ failure given the recent admission with pneumonia and possible urinary tract infection, she's currently being treated for sources of infection with cultures sent and pending. 4. Respiratory failure different management to the ICU team in terms of weaning her off the vent over the next few days. Prognosis remains very guarded at this time. Interview and evaluation for invited telemedicine. The case was discussed at length with ICU RNs at bedside Attestations Medical Necessity Statement*: eval for renal failure and hyperkalemia Coding Level of Care Code Acute Document Control Specialist for Amelia Haddad
--- NOTE | 2019-09-28 13:37 | PC.NURSE ---
dialysis complete at this time. total amount pull off patient is 2500ml.
[2019-09-28 17:07] LABS: Glucose Point of Care 239 mg/dL (70-110)
[2019-09-28] MEDS: propofol 1,000 MG/100 ML INJ 47.6 MG IV ×3 (18:19→21:54)
[2019-09-28] MEDS: vancomycin 750 MG in sodium chloride 0.9% 250 ML 250 MG IV (20:07)
[2019-09-28] MEDS: gabapentin 300 mg Capsule PO (20:08)
[2019-09-29] VITALS (55 sets, daily range): BP systolic 97–189; BP diastolic 53–84; PULSE 43–90; RESP 14–26; TEMP 36.6–37.7; O2SAT 76–100
[2019-09-29] MEDS: enoxaparin 30 mg/0.3 mL Syringe SUBCUT (01:30)
[2019-09-29] MEDS: ipratropium-albuterol 3 mL Neb INHALATION ×6 (03:07→23:31)
[2019-09-29 03:21] LABS: Hematocrit 25.2 % (37.0-47.0); Hemoglobin 7.5 g/dL (11.5-15.3); Lymphocytes # 0.4 10^3/uL (0.8-4.8); Lymphocytes % 5.5 %; Mean Corpuscular HGB Conc 29.8 g/dL (30.0-36.0); Mean Corpuscular Hemoglobin 27.1 pg (28.0-34.0); Mean Platelet Volume 9.9 fL (7.4-10.4); Monocytes # 0.3 10^3/uL (0.2-0.9); Monocytes % 3.9 %; Neutrophils # 6.3 10^3/uL (1.8-7.7); Neutrophils % 89.2 %; Nucleated Red Blood Cells % 0 %; Platelet Count 251 10^3/cmm (130-400); Red Blood Count 2.77 10^6/uL (4.1-5.3); Red Cell Distribution Width 16.1 % (12.1-15.1); White Blood Count 7.1 10^3/uL (4.0-10.0)
[2019-09-29 03:26] LABS: Alanine Aminotransferase < 5 U/L (0-33); Albumin Level 2.8 g/dL (3.5-5.2); Alkaline Phosphatase 63 IU/L (35-105); Anion Gap 17.6 (5-19); Aspartate Amino Transferase 6 U/L (0-32); Blood Urea Nitrogen 27 mg/dL (8-23); Calcium 8.8 mg/dL (8.5-10.5); Carbon Dioxide 25 mmol/L (22-29); Chloride 96 mmol/L (98-107); Globulin 3.4 g/dL (1.3-4.6); Glomerular Filtration Rate 18.7 mL/min (90-130); Glucose 220 mg/dL (65-115); Phosphorus 4.8 mg/dL (2.5-4.5); Potassium 4.6 mmol/L (3.5-5.1); Sodium 134 mmol/L (136-145); Total Bilirubin 0.5 mg/dL (0.15-1.2); Total Protein 6.2 g/dL (6.6-8.7)
[2019-09-29 04:14] LABS: Vancomycin Trough 5.5 ug/mL (10-15)
[2019-09-29] MEDS: piperacillin-tazobactam 3.375 GM in sodium chloride 0.9% (plus) 50 ML IV ×3 (04:21→21:14)
[2019-09-29] MEDS: propofol 1,000 MG/100 ML INJ 47.6 MG IV (04:25)
[2019-09-29 05:35] LABS: ABG PCO2 44.9 mmHg (35-45); ABG PH Result 7.42 (7.35-7.45); Arterial Blood Gas Hematocrit 24.8 % (37-47); Blood Gas Allen Test Pos; Blood Gas Sample Site Radial, right; Blood Gas Sample Type Arterial; Blood Gas Tidal Volume 0.45; Oxygen Device VENT; PO2 ABG 68.7 mmHg (80.0-100.0)
[2019-09-29] MEDS: propofol 1,000 MG/100 ML INJ 42.9 MG IV ×7 (05:40→18:06)
--- NOTE | 2019-09-29 06:00 | XR_ITS ---
WS: [id number] Portable AP supine chest, 09/29/2019 Clinical Data: on vent support Comparison: Portable chest, 09/27/2019 Findings: The endotracheal tube, nasogastric tube, right subclavian catheter and monitor leads remain in good position. The patient is rotated. The heart remains enlarged. The pulmonary vascularity is i ncreased. XR/XR chest 1V portable [id number] Impression: No change from portable chest of 2 days ago.
[2019-09-29] MEDS: metOLazone 5 MG Tablet 10 MG PO (08:05)
[2019-09-29] MEDS: oseltamivir phosphate 75 mg Capsule PO ×2 (08:05→17:32)
[2019-09-29] MEDS: multivitamin therapeutic Tablet 1 TAB PO (08:05)
[2019-09-29] MEDS: amlodipine 5 mg Tablet PO ×2 (08:05→17:32)
[2019-09-29] MEDS: pantoprazole DR 40 mg Tablet PO (08:05)
[2019-09-29] MEDS: isosorbide mononitrate ER 30 mg Tablet 60 MG PO ×2 (08:05→17:32)
[2019-09-29] MEDS: fluoxetine 20 mg Capsule PO (08:05)
[2019-09-29] MEDS: bumetanide 0.25 mg/mL SDV 10 mL 2 MG IV ×2 (08:05→17:32)
[2019-09-29] MEDS: sennosides 8.6 mg Tablet PO ×2 (08:05→17:32)
[2019-09-29] MEDS: sevelamer 800 mg Tablet PO ×3 (08:06→17:32)
--- NOTE | 2019-09-29 10:38 | PC.SOCIAL ---
IMM Not Given Page 2 of IMM not given as patient is still several days away from discharge. SS to follow up.
--- NOTE | 2019-09-29 13:11 | SUR.PREOP ---
PICC NOTE Patient evaluated for PICC placement. Noted to have Port a cath accessed but not flowing properly and is accessed with a angled taoist needle. I spoke with Dr Khoury about placing PICC in the patient while she has a portacath placed. It flushes easily and in place according to previous xray of the chest, but does not draw at all or flush very easily. Plan to d/c current port access and reaccess with 1.25 inch gripper luis a cath needle, then use cath flow on the new access to see if flow improves. If there is no change then we will proceed with PICC placement.
--- NOTE | 2019-09-29 13:43 | SUR.PREOP ---
PORT A CATH ACCESS Due to the current port a cath issues the access was discontinued and re access was made using sterile technique and a 1.25 inch gripper needle. Port a cath to right upper chest flushes easily and draws blood easily now. Site secured using transparent dressings. dated and timed. Patient had no c/o at this time.
--- NOTE | 2019-09-29 15:21 | P.PN_ITS ---
Subjective Subjective: Interval history: remains intubated and vented. Dialyzed yesterday and Thursday. Hemodynamics remains stable. Not on pressors. Correcting potassium did not help the bradycardia. FI02 now down to 40% still. She has significant global edema. On combo of Bumex and Metolazone. UO 1800ml over the last 2 nursing shifts Medications: Reviewed: Yes Medication Review Details: Current Medications Generic Name Dose Route Start Last Admin Trade Name Freq PRN Reason Stop Dose Admin Albuterol/Ipratrop ium 3 ml 09/27/19 08:00 09/28/19 07:30 Duoneb INHALATION 3 ml Q4H MADELEINE Administration Amlodipine Besylat e 5 mg 09/27/19 09:00 09/28/19 08:40 Norvasc PO 5 mg BID MADELEINE Administration Bumetanide 2 mg 09/27/19 09:00 09/28/19 09:00 Bumex IV 2 mg BID MADELEINE Administration Ferrous Sulfate 300 mg 09/27/19 09:15 09/28/19 05:42 Ferrous Sulfate PO 300 mg QAM MADELEINE Administration Fluoxetine HCl 20 mg 09/27/19 09:00 09/28/19 08:43 Prozac PO 20 mg DAILY MADELEINE Administration Gabapentin 300 mg 09/27/19 21:00 09/27/19 21:12 Neurontin PO 300 mg BEDTIME MADELEINE Administration Propofol 1,000 mg in 100 m ls @ 0 mls/hr 09/27/19 01:00 09/28/19 09:06 Diprivan IV 25 mcg/kg/min .Q0M MADELEINE 23.8 mls/hr Administration Protocol Per Protocol Vancomycin HCl 750 mg/ Sodium 250 mls @ 250 mls /hr 09/27/19 04:00 09/27/19 20:45 Chloride IV Infused Q24H MADELEINE Infusion Protocol As Directed Piperacillin Sod/T azobactam 50 mls @ 12.5 mls /hr 09/27/19 03:00 09/28/19 08:50 Sod 3.375 gm/ So dium Chloride IV Infused Q8H MADELEINE Infusion Protocol As Directed Insulin Aspart 0 unit 09/27/19 08:00 09/28/19 07:23 Novolog SUBCUT 10 unit TIDWM MADELEINE Administration Protocol Isosorbide Mononit rate 60 mg 09/27/19 09:00 09/28/19 08:40 Imdur PO 60 mg BID MADELEINE Administration Methylprednisolone Sodium Succinate 40 mg 09/27/19 02:14 09/28/19 01:40 Solu-Medrol IVP 40 mg Q8H MADELEINE Administration Metolazone 10 mg 09/27/19 02:14 09/28/19 08:42 Zaroxolyn PO 10 mg DAILY MADELEINE Administration Multivitamins Ther apeutic 1 tab 09/27/19 09:00 09/28/19 08:39 Multivitamin Tab PO 1 tab DAILY MADELEINE Administration Oseltamivir Phosph ate 75 mg 09/27/19 09:00 09/28/19 08:41 Tamiflu PO 75 mg BID MADELEINE Administration Pantoprazole Sodiu m 40 mg 09/27/19 09:00 09/28/19 08:39 Protonix PO 40 mg DAILY MADELEINE Administration Rocuronium [place] 200 mg 09/27/19 00:29 09/27/19 00:43 Zemuron IV 200 mg Q1H PRN Administration NEEDED FOR FEV ER OR PAIN Senna 8.6 mg 09/27/19 09:00 09/28/19 08:43 Senna Lax PO 8.6 mg BID MADELEINE Administration Sevelamer Carbonat e 800 mg 09/27/19 08:00 09/28/19 08:48 Renvela PO 800 mg TIDWM MADELEINE Administration Vitals/I&O/Wt Last Vital Signs Temp 99.0 F 09/29/19 10:00 Pulse 55 L 09/29/19 15:00 Resp 19 H 09/29/19 14:48 BP 132/55 09/29/19 15:00 Pulse Ox 90 09/29/19 15:00 09/29/19 09/29/19 09/29/19 06:59 14:59 22:59 Intake Total 309.5 / 1435.776 371.650 / 371.650 Output Total 200 / 515 Balance 109.5 / 920.776 371.650 / 371.650 Weight last 48 hrs Weight 158.984 kg Weight 158.842 kg Physical Exam Const: COMMON NORMALS: no apparent distress ORIENTATION/CONSCIOUSNESS: Yes obtunded Neck/C-Spine: COMMON NORMALS: no JVD Lymph: LYMPHATIC: no lymphadenopathy noted Cardio: COMMON NORMALS: no JVD and regular rhythm; negative for regular rate (bradycardia) RATE: abnormal rate (bradycardia) RHYTHM: regular rhythm GI: INSPECTION: Yes normal to inspection and Yes abdominal wall ecchymosis Extremity: COMMON NORMALS: normal to inspection and full ROM Urinary Catheter Management^: Daniel: Cath Placed During This Visit: yes Urethral Indwelling: Yes Reason for Continuing Indwelling Catheter: Accurate Measurement of Urinary Output in Critically Ill Patients Urinary Catheter Date of Insertion: 09/27/19 Urinary Catheter Time of Insertion: 00:05 Data : 09/29/19 02:53 09/29/19 02:53 Micro: Microbiology 09/27/19 10:58 Urine Culture - Final Urine,Clean Catch 09/28/19 11:20 Blood Culture - Preliminary Blood NEGATIVE TO DATE 09/28/19 11:01 Blood Culture - Preliminary Blood NEGATIVE TO DATE 09/27/19 02:05 Sputum Culture - Final Sputum - Endotracheal Tube Aspirate A&P Additional A&P Information 1. Renal failure and critical hyperkalemia it is likely that she is now sustained another hit of significant infection/ischemic ATN. will plan on dialysis tomorrow but may cancel if we see some renal recovery cont high dose diuretic combo strict ins and outs 2. Hyperkalemia. now in safe range after dialysis x 2 3. Multisystem organ failure given the recent admission with pneumonia and possible urinary tract infection, she's currently being treated for sources of infection with cultures sent and pending. Alix on board 4. Respiratory failure different management to the ICU team in terms of weaning her off the vent over the next few days. Prognosis remains very guarded at this time. Interview and evaluation for invited telemedicine. The case was discussed at length with ICU RNs at bedside Attestations Medical Necessity Statement*: eval and mgmt of renal failure Coding Level of Care Code Acute Stockroom Attendant for Amelia Haddad
[2019-09-29 17:49] LABS: Glucose Point of Care 200 mg/dL (70-110)
[2019-09-29 17:49] LABS: Glucose Point of Care 171 mg/dL (70-110)
[2019-09-29 17:49] LABS: Glucose Point of Care 141 mg/dL (70-110)
--- NOTE | 2019-09-29 18:18 | P.PN_ITS ---
Subjective Subjective: Interval history: Patient seen and examined several times throughout the day, initially seen earlier this morning, remains on vent support, FiO2 of 40% though ABG indicate some hypoxia. Labs reviewed, normalized potassium and improved renal function. Seems to be making more urine based on output in Daniel catheter currently. Repeat chest x-ray unchanged today. Able to re-access her port. No dialysis scheduled for today. Tube feeds running at 20 mL/hr. Continues to have significant amounts of secretions requiring frequent suctioning. Medications: Reviewed: Yes Medication Review Details: Current Medications Generic Name Dose Route Start Last Admin Trade Name Freq PRN Reason Stop Dose Admin Albuterol/Ipratrop ium 3 ml 09/27/19 08:00 09/28/19 07:30 Duoneb INHALATION 3 ml Q4H MADELEINE Administration Amlodipine Besylat e 5 mg 09/27/19 09:00 09/28/19 08:40 Norvasc PO 5 mg BID MADELEINE Administration Bumetanide 2 mg 09/27/19 09:00 09/28/19 09:00 Bumex IV 2 mg BID MADELEINE Administration Ferrous Sulfate 300 mg 09/27/19 09:15 09/28/19 05:42 Ferrous Sulfate PO 300 mg QAM MADELEINE Administration Fluoxetine HCl 20 mg 09/27/19 09:00 09/28/19 08:43 Prozac PO 20 mg DAILY MADELEINE Administration Gabapentin 300 mg 09/27/19 21:00 09/27/19 21:12 Neurontin PO 300 mg BEDTIME MADELEINE Administration Propofol 1,000 mg in 100 m ls @ 0 mls/hr 09/27/19 01:00 09/28/19 09:06 Diprivan IV 25 mcg/kg/min .Q0M MADELEINE 23.8 mls/hr Administration Protocol Per Protocol Vancomycin HCl 750 mg/ Sodium 250 mls @ 250 mls /hr 09/27/19 04:00 09/27/19 20:45 Chloride IV Infused Q24H MADELEINE Infusion Protocol As Directed Piperacillin Sod/T azobactam 50 mls @ 12.5 mls /hr 09/27/19 03:00 09/28/19 08:50 Sod 3.375 gm/ So dium Chloride IV Infused Q8H MADELEINE Infusion Protocol As Directed Insulin Aspart 0 unit 09/27/19 08:00 09/28/19 07:23 Novolog SUBCUT 10 unit TIDWM MADELEINE Administration Protocol Isosorbide Mononit rate 60 mg 09/27/19 09:00 09/28/19 08:40 Imdur PO 60 mg BID MADELEINE Administration Methylprednisolone Sodium Succinate 40 mg 09/27/19 02:14 09/28/19 01:40 Solu-Medrol IVP 40 mg Q8H MADELEINE Administration Metolazone 10 mg 09/27/19 02:14 09/28/19 08:42 Zaroxolyn PO 10 mg DAILY MADELEINE Administration Multivitamins Ther apeutic 1 tab 09/27/19 09:00 09/28/19 08:39 Multivitamin Tab PO 1 tab DAILY MADELEINE Administration Oseltamivir Phosph ate 75 mg 09/27/19 09:00 09/28/19 08:41 Tamiflu PO 75 mg BID MADELEINE Administration Pantoprazole [place]od[place] m 40 mg 09/27/19 09:00 09/28/19 08:39 Protonix PO 40 mg DAILY MADELEINE Administration Rocuronium [place] 200 mg 09/27/19 00:29 09/27/19 00:43 Zemuron IV 200 mg Q1H PRN Administration NEEDED FOR FEV ER OR PAIN Senna 8.6 mg 09/27/19 09:00 09/28/19 08:43 Senna Lax PO 8.6 mg BID MADELEINE Administration Sevelamer Carbonat e 800 mg 09/27/19 08:00 09/28/19 08:48 Renvela PO 800 mg TIDWM MADELEINE Administration Vitals/I&O/Wt Last Vital Signs Temp 99.2 F 09/29/19 16:00 Pulse 55 L 09/29/19 18:00 Resp 18 09/29/19 15:46 BP 164/74 09/29/19 18:00 Pulse Ox 92 09/29/19 18:00 09/29/19 09/29/19 09/29/19 06:59 14:59 22:59 Intake Total 309.5 / 1435.776 371.650 / 371.650 184.47 / 556.120 Output Total 200 / 515 850 / 850 Balance 109.5 / 920.776 371.650 / 371.650 -665.53 / -293.880 Weight last 48 hrs Weight 158.984 kg Weight 158.842 kg Physical Exam Narrative: EXAM NARRATIVE: -Propofol @ 45 mcg/kg/min -tube feeds @ 20 mL/hr Const: COMMON NORMALS: no apparent distress GENERAL APPEARANCE: cooperative and comfortable NUTRITIONAL APPEARANCE: obese morbidly obese ORIENTATION/CONSCIOUSNESS: Yes other (Sedated) HENMT: COMMON NORMALS: normocephalic, head/scalp atraumatic, hearing grossly normal bilaterally and moist oral mucous membranes HEAD & SCALP: normocephalic and atraumatic OTHER: -ETT: 24 cm @ lip Eye: COMMON NORMALS: PERRL, EOMs intact bilaterally and conjunctivae normal CONJUNCTIVA: Yes conjunctivae normal PUPIL: Yes PERRL Neck/C-Spine: COMMON NORMALS: full ROM GENERAL: Yes trachea midline OTHER: short, thick neck Chest: OTHER: -Port-A-Cath in place on right, accessed Resp: COMMON NORMALS: no retractions and no use of accessory muscles EFFORT & INSPECTION: Yes symmetric chest movement and No tachypneic AUSCULTATION: rhonchi throughout OTHER: -auscultation limited by body habitus -on vent support; 40%/450/10; breathing over vent Cardio: COMMON NORMALS: regular rhythm, S1 normal heart sound, S2 normal heart sound and no murmurs RATE: bradycardic (intermittently) RHYTHM: regular rhythm HEART SOUNDS: S1 normal and S2 normal GI: COMMON NORMALS: normal to inspection, nondistended, normoactive bowel sounds, soft to palpation and non-tender INSPECTION: Yes anasarca present, Yes central obesity and Yes pannus present PALPATION: Yes soft : OTHER: -femoral (R) tunneled catheter Extremity: COMMON NORMALS: normal to inspection and full ROM; negative for no pedal edema OTHER: -non-pitting edema on bilateral upper thighs and lower abdominal wall Neuro: COMMON NORMALS: no focal motor deficits OTHER: responsive to verbal and tactile stimulation Psych: COMMON NORMALS: mental status grossly normal, thought process normal, cooperative, affect normal and speech normal SPEECH: Yes normal speech THOUGHT PROCESS: normal thought process OTHER: sedated Skin: COMMON NORMALS: no jaundice, no petechiae and no mottling OTHER: - chronic venous stasis dermatitis on bilateral lower extremities -onychomycosis of bilateral toenails, worse on the R Urinary Catheter Management^: Daniel: Cath Placed During This Visit: yes Urethral Indwelling: Yes Reason for Continuing Indwelling Catheter: Accurate Measurement of Urinary Output in Critically Ill Patients Urinary Catheter Date of Insertion: 09/27/19 Urinary Catheter Time of Insertion: 00:05 Data : 09/29/19 02:53 09/29/19 02:53 Micro: Microbiology 09/27/19 10:58 Urine Culture - Final Urine,Clean Catch 09/28/19 11:20 Blood Culture - Preliminary Blood NEGATIVE TO DATE 09/28/19 11:01 Blood Culture - Preliminary Blood NEGATIVE TO DATE 09/27/19 02:05 Sputum Culture - Final Sputum - Endotracheal Tube Aspirate A&P Assessment and plan (1) Acute kidney injury: -ROBBIE on CKD stage 4; baseline Cr is around 2-3 -continue to monitor renal function -Nephrology consult appreciated -HD x 2 sessions; none today; has tunneled catheter (femoral) in place -renally dose meds, avoid nephrotoxins -has Daniel catheter in place, monitor urine output Status: Acute Code(s): N17.9 - Acute kidney failure, unspecified (2) Acute hyperkalemia: -persistent hyperkalemia despite medical intervention responded to HD; K wnl today -continue to monitor Status: Acute Code(s): E87.5 - Hyperkalemia (3) Acute on chronic respiratory failure with hypoxia and hypercapnia: -required intubation and remains on vent support; not ready for weaning t rial yet given continued anasarca, hypoxia -is oxygen dependent at baseline, 2 L, BiPAP qhs -BNP: 46,000; chronically elevated -CXR: noted LLL atelectasis vs. consolidation and patchy RLL infiltrates; unchanged today -on IV steroids, empiric antibiotics -ABG noted with slightly worsened oxygenation and resolved hypercapnia today -influenza B positive; on droplet precautions, on Tamiflu (day 3/5) -blood cx: negative Status: Acute Code(s): J96.21 - Acute and chronic respiratory failure with hypoxia; J96.22 - Acute and chronic respiratory failure with hypercapnia (4) Congestive heart failure: -Echo: EF=55%, no RWMA, G2DD, mild TR -on IV diuresis with Bumex -on vent support -daily weights, monitor Is & Os -receiving HD Status: Acute Qualifiers: Heart failure type: diastolic Heart failure chronicity: acute on chronic Qualified Code(s): I50.33 - Acute on chronic diastolic (congestive) heart failure Code(s): I50.9 - Heart failure, unspecified Additional A&P Information -HTN -Acute on chronic normocytic anemia; baseline Hg 7-8. Continue to monitor H/H. Has had GI w/u done before showing antral petechiae and colonoscopy showing diverticulosis; no active bleeding (12/2016). S/p 1 unit of PRBCs on 09/28; very slight improvement in Hg noted today. Anticipate need for transfusion of additional blood products tomorrow likely with dialysis -IDDM type II; A1c-5.5 -Morbid obesity: BMI-57 kg/m2 -Chronic constipation; on bowel regimen, no BMs yet -Peripheral vascular disease -Depression, anxiety -Bradycardia; chronic; Atropine PRN -UTI; on antibiotics; urine cx-mixed geoff -hx of R hydronephrosis s/p ureteral stent. Daniel catheter in place -continue meds as ordered -fall precautions -NPO currently as on vent support; on tube feeds -DVT ppx with heparin; monitor H/H closely -Dispo: return to [facility] -Code status: FULL code -continue ICU care due to vent support Attestations Medical Necessity Statement*: Patient requires hospitalization for continued management of acute on chronic respiratory failure, remains on vent support as well as management of acute kidney injury with intermittent need for hemodialysis. Time Spent in Patient Care: Greater than 35 minutes (>than 50% of time spent in counselling and/or direct pt care on unit) . Critical Care Time: The high probability of a clinically significant, sudden or life threatening deterioration of the patient's [cardiovascular and respiratory] system(s) required my full and direct attention, intervention and personal management. The critical care time is as shown. This time is in addition to time spent performing any reported procedures but includes the following: [x] Data and vital sign review and interpretation [x] Patient assessment, examination and intervention [x] Documentation [x] Medication orders and management Critical Care Time (min): 30 Coding Level of Care Code Acute Tube Closing Machine Operator for [facility] Fwkevyn Diagnoses Acute kidney injury N17.9 Acute hyperkalemia E87.5 Acute on chronic respiratory failure with hypoxia and hypercapnia J96.21; J96.22 Congestive heart failure I50.33 Heart failure type: diastolic Heart failure chronicity: acute on chronic
[2019-09-29] MEDS: propofol 1,000 MG/100 ML INJ 38.1 MG IV ×3 (19:40→23:34)
[2019-09-29] MEDS: gabapentin 300 mg Capsule PO (20:03)
[2019-09-29] MEDS: magnesium hydroxide 30 mL UDC PO (20:03)
[2019-09-30] VITALS (42 sets, daily range): BP systolic 134–168; BP diastolic 62–77; PULSE 41–66; RESP 15–22; TEMP 36.6–37; O2SAT 90–98
[2019-09-30 00:08] LABS: Glucose Point of Care 216 mg/dL (70-110)
[2019-09-30] MEDS: propofol 1,000 MG/100 ML INJ 36.2 MG IV (01:47)
[2019-09-30] MEDS: enoxaparin 40 mg/0.4 mL Syringe SUBCUT (01:47)
[2019-09-30] MEDS: ipratropium-albuterol 3 mL Neb INHALATION ×6 (03:27→23:19)
[2019-09-30] MEDS: propofol 1,000 MG/100 ML INJ 38.1 MG IV ×3 (03:43→20:40)
[2019-09-30] MEDS: piperacillin-tazobactam 3.375 GM in sodium chloride 0.9% (plus) 50 ML IV ×2 (05:31→17:21)
[2019-09-30 05:51] LABS: ABG PCO2 45.7 mmHg (35-45); ABG PH Result 7.38 (7.35-7.45); Arterial Blood Gas Hematocrit 26.5 % (37-47); Base Excess ABG 1.2 mmol/L (-2.0-2.0); Blood Gas Allen Test Pos; Blood Gas Sample Site Radial, right; Blood Gas Sample Type Arterial; Blood Gas Tidal Volume 0.45; HCO3 ABG 26.7 mmol/L (22-26); Oxygen Device VENT; PO2 ABG 75.2 mmHg (80.0-100.0)
--- NOTE | 2019-09-30 06:00 | XR_ITS ---
WS: [id number] Portable AP upright chest, 09/30/2019 Clinical Data: on vent support Comparison: Portable chest, 09/29/2019 Findings: The endotracheal tube and nasogastric tube remain in good position. The patient remains rot ated and the heart is enlarged. Vascularity is increased. There are monitor leads on the chest and ab dominal wall. XR/XR chest 1V portable [id number] Impression: No change from yesterday's portable chest.
[2019-09-30 06:18] LABS: Hematocrit 28.1 % (37.0-47.0); Hemoglobin 8.3 g/dL (11.5-15.3); Lymphocytes # 0.4 10^3/uL (0.8-4.8); Lymphocytes % 5.2 %; Mean Corpuscular HGB Conc 29.5 g/dL (30.0-36.0); Mean Corpuscular Hemoglobin 27.8 pg (28.0-34.0); Monocytes # 0.2 10^3/uL (0.2-0.9); Monocytes % 2.6 %; Neutrophils # 6.6 10^3/uL (1.8-7.7); Neutrophils % 90.1 %; Nucleated Red Blood Cells % 0 %; Platelet Count 264 10^3/cmm (130-400); Red Blood Count 2.99 10^6/uL (4.1-5.3); Red Cell Distribution Width 16.1 % (12.1-15.1); White Blood Count 7.3 10^3/uL (4.0-10.0)
[2019-09-30 06:33] LABS: Anion Gap 21.9 (5-19); Blood Urea Nitrogen 38 mg/dL (8-23); Calcium 8.8 mg/dL (8.5-10.5); Carbon Dioxide 25 mmol/L (22-29); Chloride 90 mmol/L (98-107); Glomerular Filtration Rate 15.9 mL/min (90-130); Glucose 215 mg/dL (65-115); Magnesium 2.3 mg/dL (1.7-2.3); Osmolality Calculated 278 mOsm/kg (285-295); Phosphorus 6.8 mg/dL (2.5-4.5); Potassium 4.9 mmol/L (3.5-5.1); Sodium 132 mmol/L (136-145)
[2019-09-30] MEDS: propofol 1,000 MG/100 ML INJ 42.9 MG IV ×5 (06:49→22:10)
[2019-09-30 07:32] LABS: Glucose Point of Care 221 mg/dL (70-110)
[2019-09-30] MEDS: magnesium hydroxide 30 mL UDC PO (08:48)
[2019-09-30] MEDS: sennosides 8.6 mg Tablet PO ×2 (08:48→17:14)
[2019-09-30] MEDS: pantoprazole DR 40 mg Tablet PO (08:48)
[2019-09-30] MEDS: metOLazone 5 MG Tablet 10 MG PO (08:48)
[2019-09-30] MEDS: multivitamin therapeutic Tablet 1 TAB PO (08:50)
[2019-09-30] MEDS: fluoxetine 20 mg Capsule PO (08:51)
[2019-09-30] MEDS: bumetanide 0.25 mg/mL SDV 10 mL 2 MG IV ×2 (08:51→17:13)
[2019-09-30] MEDS: amlodipine 5 mg Tablet PO ×2 (08:51→17:14)
[2019-09-30] MEDS: oseltamivir phosphate 75 mg Capsule PO ×2 (08:51→17:13)
[2019-09-30] MEDS: sevelamer 800 mg Tablet PO ×3 (08:52→17:13)
--- NOTE | 2019-09-30 09:26 | P.PN_ITS ---
Subjective Subjective: Interval history: Patient seen and examined, remains on vent support, anasarca persists, had 250 mL urine output overnight. Plan for HD today. Labs noted, CXR unchanged. ABG noted. Bradycardic with HR in 40-50 range which is her baseline. Has + fluid balance of about 2 L. On sedation with propofol though arouses easily to tactile and verbal stimulation. Seems to be tolerating tube feeds better today. Continues to require frequent suctioning due to volume of secretions. Medications: Reviewed: Yes Medication Review Details: Current Medications Generic Name Dose Route Start Last Admin Trade Name Freq PRN Reason Stop Dose Admin Albuterol/Ipratrop ium 3 ml 09/27/19 08:00 09/30/19 07:24 Duoneb INHALATION 3 ml Q4H MADELEINE Administration Amlodipine Besylat e 5 mg 09/27/19 09:00 09/30/19 08:51 Norvasc PO 5 mg BID MADELEINE Administration Bumetanide 2 mg 09/27/19 09:00 09/30/19 08:51 Bumex IV 2 mg BID MADELEINE Administration Enoxaparin Sodium 40 mg 09/30/19 02:00 09/30/19 01:47 Lovenox SUBCUT 40 mg Q24H MADELEINE Administration Ferrous Sulfate 300 mg 09/27/19 09:15 09/30/19 05:30 Ferrous Sulfate PO 300 mg QAM MADELEINE Administration Fluoxetine HCl 20 mg 09/27/19 09:00 09/30/19 08:51 Prozac PO 20 mg DAILY MADELEINE Administration Gabapentin 300 mg 09/27/19 21:00 09/29/19 20:03 Neurontin PO 300 mg BEDTIME MADELEINE Administration Propofol 1,000 mg in 100 m ls @ 0 mls/hr 09/27/19 01:00 09/30/19 08:47 Diprivan IV 45 mcg/kg/min .Q0M MADELEINE 42.9 mls/hr Administration Protocol Per Protocol Piperacillin Sod/T azobactam 50 mls @ 12.5 mls /hr 09/27/19 03:00 09/30/19 05:31 Sod 3.375 gm/ So dium Chloride IV 12.5 mls/hr Q8H MADELEINE Administration Protocol As Directed Vancomycin HCl 1,5 00 mg/ 250 mls @ 166.667 mls/hr 09/29/19 12:00 09/29/19 11:41 Sodium Chloride IV 166.7 mls/hr Q24H MADELEINE Administration Protocol Insulin Aspart 0 unit 09/27/19 08:00 09/30/19 07:32 Novolog SUBCUT 8 unit TIDWM MADELEINE Administration Protocol Isosorbide Mononit rate 60 mg 09/27/19 09:00 09/30/19 09:19 Imdur PO Not Given BID [facility] Magnesium Hydroxid e 30 ml 09/29/19 18:30 09/30/19 08:48 Milk Of Magnesia PO 30 ml DAILY MADELEINE Administration Methylprednisolone Sodium Succinate 40 mg 09/27/19 02:14 09/30/19 05:30 Solu-Medrol IVP 40 mg Q8H MADELEINE Administration Metolazone 10 mg 09/27/19 02:14 09/30/19 08:48 Zaroxolyn PO 10 mg DAILY MADELEINE Administration Multivitamins Ther apeutic 1 tab 09/27/19 09:00 09/30/19 08:50 Multivitamin Tab PO 1 tab DAILY [facility] Administration Oseltamivir Phosph ate 75 mg 09/27/19 09:00 09/30/19 08:51 Tamiflu PO 75 mg BID [facility] Administration Pantoprazole Sodiu m 40 mg 09/27/19 09:00 09/30/19 08:48 Protonix PO 40 mg DAILY [facility] Administration Rocuronium [place] 200 mg 09/27/19 00:29 09/27/19 00:43 Zemuron IV 200 mg Q1H PRN Administration NEEDED FOR FEV ER OR PAIN Senna 8.6 mg 09/27/19 09:00 09/30/19 08:48 Senna Lax PO 8.6 mg BID [facility] Administration Sevelamer Carbonat e 800 mg 09/27/19 08:00 09/30/19 08:52 Renvela PO 800 mg TIDWM [facility] Administration Vitals/I&O/Wt Last Vital Signs Temp 98.4 F 09/30/19 05:00 Pulse 49 L 09/30/19 08:00 Resp 17 09/30/19 09:03 BP 151/71 09/30/19 08:00 Pulse Ox 92 09/30/19 08:00 09/29/19 09/30/19 09/30/19 22:59 06:59 14:59 Intake Total 364.375 / 793.414 6924.140 / 1828.165 84.37 / 84.37 Output Total 975 / 975 125 / 1100 Balance -610.625 / -238.975 967.140 / 728.165 84.37 / 84.37 Weight last 48 hrs Weight 156.688 kg Weight 158.984 kg Physical Exam Narrative: EXAM NARRATIVE: -Propofol @ 45 mcg/kg/min -tube feeds @ 20 mL/hr Const: COMMON NORMALS: no apparent distress GENERAL APPEARANCE: cooperative and comfortable NUTRITIONAL APPEARANCE: obese morbidly obese ORIENTATION/CONSCIOUSNESS: Yes other (Sedated) HENMT: COMMON NORMALS: normocephalic, head/scalp atraumatic, hearing grossly normal bilaterally and moist oral mucous membranes HEAD & SCALP: normocephalic and atraumatic OTHER: -ETT: 24 cm @ lip Eye: COMMON NORMALS: PERRL, EOMs intact bilaterally and conjunctivae normal CONJUNCTIVA: Yes conjunctivae normal PUPIL: Yes PERRL Neck/C-Spine: COMMON NORMALS: full ROM GENERAL: Yes trachea midline O THER: short, thick neck Chest: OTHER: -Port-A-Cath in place on right, accessed Resp: COMMON NORMALS: no retractions and no use of accessory muscles EFFORT & INSPECTION: Yes symmetric chest movement and No tachypneic AUSCULTATION: rhonchi throughout OTHER: -auscultation limited by body habitus -on vent support; 40%/450/10; breathing over vent Cardio: COMMON NORMALS: regular rhythm, S1 normal heart sound, S2 normal heart sound and no murmurs RATE: bradycardic (intermittently) RHYTHM: regular rhythm HEART SOUNDS: S1 normal and S2 normal GI: COMMON NORMALS: normal to inspection, nondistended, normoactive bowel sounds, soft to palpation and non-tender INSPECTION: Yes anasarca present, Yes central obesity and Yes pannus present PALPATION: Yes soft : OTHER: -femoral (R) tunneled catheter Extremity: COMMON NORMALS: normal to inspection and full ROM; negative for no pedal edema OTHER: -non-pitting edema on bilateral upper thighs and lower abdominal wall Neuro: COMMON NORMALS: no focal motor deficits OTHER: responsive to verbal and tactile stimulation Psych: COMMON NORMALS: mental status grossly normal, thought process normal, cooperative, affect normal and speech normal SPEECH: Yes normal speech THOUGHT PROCESS: normal thought process OTHER: sedated Skin: COMMON NORMALS: no jaundice, no petechiae and no mottling OTHER: - chronic venous stasis dermatitis on bilateral lower extremities -onychomycosis of bilateral toenails, worse on the R -R gluteal area with noted shearing, blanchable erythema on the rest of the sacral area -extensive intertrigo over multiple skin folds including axillary areas, pannus, inguinal areas Urinary Catheter Management^: Daniel: Cath Placed During This Visit: yes Urethral Indwelling: Yes Reason for Continuing Indwelling Catheter: Accurate Measurement of Urinary Output in Critically Ill Patients Urinary Catheter Date of Insertion: 09/27/19 Urinary Catheter Time of Insertion: 00:05 Data : 09/30/19 05:25 09/30/19 05:25 Micro: Microbiology 09/27/19 10:58 Urine Culture - Final Urine,Clean Catch 09/28/19 11:20 Blood Culture - Preliminary Blood NEGATIVE TO DATE 09/28/19 11:01 Blood Culture - Preliminary Blood NEGATIVE TO DATE 09/27/19 02:05 Sputum Culture - Final Sputum - Endotracheal Tube Aspirate A&P Assessment and plan (1) Acute on chronic respiratory failure with hypoxia and hypercapnia: -required intubation and remains on vent support (day 4); not ready for weaning trial yet given continued anasarca, hypoxia -is oxygen dependent at baseline, 2 L, BiPAP qhs -BNP: 46,000; chronically elevated -CXR: noted LLL atelectasis vs. consolidation and patchy RLL infiltrates; unchanged today -on IV steroids, empiric antibiotics (on Vanc/Zosyn) -ABG noted, normal pH, resolved hypoxia and hypercapnia -influenza B positive; on droplet precautions, on Tamiflu (day 4/5) -blood cx: negative Status: Acute Code(s): J96.21 - Acute and chronic respiratory failure with hypoxia; J96.22 - Acute and chronic respiratory failure with hypercapnia (2) Acute kidney injury: -ROBBIE on CKD stage 4; baseline Cr is around 2-3 -continue to monitor renal function -Nephrology consult appreciated -HD x 2 sessions; plan for session today; has tunneled catheter (femoral) in place -renally dose meds, avoid nephrotoxins -has Daniel catheter in place, continue to monitor urine output Status: Acute Code(s): N17.9 - Acute kidney failure, unspecified (3) Acute hyperkalemia: -persistent hyperkalemia despite medical intervention responded to HD; K wnl -continue to monitor Status: Acute Code(s): E87.5 - Hyperkalemia (4) Congestive heart failure: -Echo: EF=55%, no RWMA, G2DD, mild TR; clinically anasarcic -on IV diuresis with Bumex; positive fluid balance persists -on vent support -daily weights, monitor Is & Os -receiving HD intermittently Status: Acute Qualifiers: Heart failure chronicity: acute on chronic Heart failure type: diastolic Qualified Code(s): I50.33 - Acute on chronic diastolic (congestive) heart failure Code(s): I50.9 - Heart failure, unspecified Additional A&P Information -HTN; BP appropriate -Acute on chronic normocytic anemia; baseline Hg 7-8. Continue to monitor H/H. Has had GI w/u done before showing antral petechiae and colonoscopy showing diverticulosis; no active bleeding (12/2016). S/p 1 unit of PRBCs on 09/28; improvement in Hg noted today. -IDDM type II; A1c-5.5 -Morbid obesity: BMI-56 kg/m2 -Chronic constipation; on bowel regimen, no BMs yet -Peripheral vascular disease -Depression, anxiety -Bradycardia; chronic; Atropine PRN -UTI; on antibiotics; urine cx-mixed geoff -hx of R hydronephrosis s/p ureteral stent. Daniel catheter in place -continue meds as ordered -fall precautions -NPO currently as on vent support; on tube feeds -DVT ppx with heparin; monitor H/H closely -Dispo: return to [facility] -Code status: FULL code -continue ICU care due to vent support Attestations Medical Necessity Statement*: Patient requires hospitalization for continued management of acute on chronic respiratory failure, remains on vent support, continued management of acute kidney injury with requirement for hemodialysis. Time Spent in Patient Care: Greater than 35 minutes (>than 50% of time spent in counselling and/or direct pt care on unit) . Critical Care Time: The high probability of a clinically significant, sudden or life threatening deterioration of the patient's [cardiovascular, respiratory] system(s) required my full and direct attention, intervention and personal management. The critical care time is as shown. This time is in addition to time spent performing any reported procedures but includes the following: [x] Data and vital sign review and interpretation [x] Patient assessment, examination and intervention [x] Documentation [x] Medication orders and management Critical Care Time (min): 30 Coding Level of Care Code Acute Trailer Mechanic for Amelia Haddad Exam Problem Focused Diagnoses Acute on chronic respiratory failure with hypoxia and hypercapnia J96.21; J96.22 Acute kidney injury N17.9 Acute hyperkalemia E87.5 Congestive heart failure I50.33 Heart failure chronicity: acute on chronic Heart failure type: diastolic
[2019-09-30 09:35] LABS: ABG PCO2 41.8 mmHg (35-45); ABG PH Result 7.39 (7.35-7.45); Alveolar-Arterial Oxygen Gradi 123.4 mmHg (5-10); Arterial Blood Gas Hematocrit 26.2 % (37-47); Base Excess ABG 0.4 mmol/L (-2.0-2.0); Blood Gas Allen Test Pos; Blood Gas Sample Site Radial, left; Blood Gas Sample Type Arterial; Blood Gas Tidal Volume 0.45; HCO3 ABG 25.4 mmol/L (22-26); HGB O2 Sat 96.5 % (95-100); Ionized Calcium Level - ABG 1.1 mmol/L (1.1-1.4); Methemoglobin 1.1 % (0.4-1.5); Oxygen Device VENT; Oxygen Saturation ABG 98.6; Potassium Level - ABG 4.9 mmol/L (3.5-5.0); Total Hemoglobin 8.5 g/dL (12-16)
--- NOTE | 2019-09-30 14:12 | PC.NURSE ---
medication changed time as dialysis in progress at this time .. heparin to dialysis staff
--- NOTE | 2019-09-30 14:35 | P.PN_ITS ---
Subjective Subjective: Interval history: Patient seen and examined, remains on vent support. No new issues. Comfortable on the vent. UO 2500 but seems to be slowing down today. FiO2 35% and PEEP of 5. Medications: Reviewed: Yes Medication Review Details: Current Medications Generic Name Dose Route Start Last Admin Trade Name Freq PRN Reason Stop Dose Admin Albuterol/Ipratrop ium 3 ml 09/27/19 08:00 09/30/19 07:24 Duoneb INHALATION 3 ml Q4H MADELEINE Administration Amlodipine Besylat e 5 mg 09/27/19 09:00 09/30/19 08:51 Norvasc PO 5 mg BID MADELEINE Administration Bumetanide 2 mg 09/27/19 09:00 09/30/19 08:51 Bumex IV 2 mg BID MADELEINE Administration Enoxaparin Sodium 40 mg 09/30/19 02:00 09/30/19 01:47 Lovenox SUBCUT 40 mg Q24H MADELEINE Administration Ferrous Sulfate 300 mg 09/27/19 09:15 09/30/19 05:30 Ferrous Sulfate PO 300 mg QAM MADELEINE Administration Fluoxetine HCl 20 mg 09/27/19 09:00 09/30/19 08:51 Prozac PO 20 mg DAILY MADELEINE Administration Gabapentin 300 mg 09/27/19 21:00 09/29/19 20:03 Neurontin PO 300 mg BEDTIME MADELEINE Administration Propofol 1,000 mg in 100 m ls @ 0 mls/hr 09/27/19 01:00 09/30/19 08:47 Diprivan IV 45 mcg/kg/min .Q0M MADELEINE 42.9 mls/hr Administration Protocol Per Protocol Piperacillin Sod/T azobactam 50 mls @ 12.5 mls /hr 09/27/19 03:00 09/30/19 05:31 Sod 3.375 gm/ So dium Chloride IV 12.5 mls/hr Q8H MADELEINE Administration Protocol As Directed Vancomycin HCl 1,5 00 mg/ 250 mls @ 166.667 mls/hr 09/29/19 12:00 09/29/19 11:41 Sodium Chloride IV 166.7 mls/hr Q24H MADELEINE Administration Protocol Insulin Aspart 0 unit 09/27/19 08:00 09/30/19 07:32 Novolog SUBCUT 8 unit TIDWM MADELEINE Administration Protocol Isosorbide Mononit rate 60 mg 09/27/19 09:00 09/30/19 09:19 Imdur PO Not Given BID [facility] Magnesium Hydroxid e 30 ml 09/29/19 18:30 09/30/19 08:48 Milk Of Magnesia PO 30 ml DAILY MADELEINE Administration Methylprednisolone Sodium Succinate 40 mg 09/27/19 02:14 09/30/19 05:30 Solu-Medrol IVP 40 mg Q8H MADELEINE Administration Metolazone 10 mg 09/27/19 02:14 09/30/19 08:48 Zaroxolyn PO 10 mg DAILY MADELEINE Administration Multivitamins Ther apeutic 1 tab 09/27/19 09:00 09/30/19 08:50 Multivitamin Tab PO 1 tab DAILY [facility] Administration Oseltamivir Phosph ate 75 mg 09/27/19 09:00 09/30/19 08:51 Tamiflu PO 75 mg BID [facility] Administration Pantoprazole Sodiu m 40 mg 09/27/19 09:00 09/30/19 08:48 Protonix PO 40 mg DAILY [facility] Administration Rocuronium [place] 200 mg 09/27/19 00:29 09/27/19 00:43 Zemuron IV 200 mg Q1H PRN Administration NEEDED FOR FEV ER OR PAIN Senna 8.6 mg 09/27/19 09:00 09/30/19 08:48 Senna Lax PO 8.6 mg BID [facility] Administration Sevelamer Carbonat e 800 mg 09/27/19 08:00 09/30/19 08:52 Renvela PO 800 mg TIDWM [facility] Administration Vitals/I&O/Wt Last Vital Signs Temp 98 F 09/30/19 14:00 Pulse 48 L 09/30/19 14:00 Resp 18 09/30/19 13:33 BP 134/62 09/30/19 14:00 Pulse Ox 93 09/30/19 13:00 09/29/19 09/30/19 09/30/19 22:59 06:59 14:59 Intake Total 364.375 / 314.588 3541.140 / 2078.165 84.37 / 84.37 Output Total 975 / 975 125 / 1100 Balance -610.625 / 11.025 967.140 / 978.165 84.37 / 84.37 Weight last 48 hrs Weight 156.688 kg Weight 158.984 kg Physical Exam Const: COMMON NORMALS: no apparent distress ORIENTATION/CONSCIOUSNESS: Yes obtunded Neck/C-Spine: COMMON NORMALS: no JVD Lymph: LYMPHATIC: no lymphadenopathy noted Cardio: COMMON NORMALS: no JVD and regular rhythm; negative for regular rate (bradycardia) RATE: abnormal rate (bradycardia) RHYTHM: regular rhythm GI: INSPECTION: Yes normal to inspection and Yes abdominal wall ecchymosis Extremity: COMMON NORMALS: normal to inspection and full ROM Urinary Catheter Management^: Daniel: Cath Placed During This Visit: yes Urethral Indwelling: Yes Reason for Continuing Indwelling Catheter: Accurate Measurement of Urinary Output in Critically Ill Patients Urinary Catheter Date of Insertion: 09/27/19 Urinary Catheter Time of Insertion: 00:05 Data : 09/30/19 05:25 09/30/19 05:25 Micro: Microbiology 09/27/19 10:58 Urine Culture - Final Urine,Clean Catch 09/28/19 11:20 Blood Culture - Preliminary Blood NEGATIVE TO DATE 09/28/19 11:01 Blood Culture - Preliminary Blood NEGATIVE TO DATE 09/27/19 02:05 Sputum Culture - Final Sputum - Endotracheal Tube Aspirate A&P Additional A&P Information 1. Renal failure and critical hyperkalemia it is likely that she is now sustained another hit of significant infection/ischemic ATN. will plan on dialysis today plan to give her a break over the weekend but will eval her daily to see if she develops and acute need strict ins and outs 2. Hyperkalemia. now in safe range 3. Multisystem organ failure given the recent admission with pneumonia and possible urinary tract infection, she's currently being treated for sources of infection with cultures sent and pending. Alix on board 4. Respiratory failure different management to the ICU team in terms of weaning her off the vent over the next few days. Prognosis remains very guarded at this time. Interview and evaluation for invited telemedicine. The case was discussed at length with ICU RNs at bedside Attestations Medical Necessity Statement*: eval for ROBBIE Coding Level of Care Code Acute Adult Manager for Amelia Haddad
--- NOTE | 2019-09-30 15:56 | PC.CHAP ---
Pastoral Care Encounter/Spiritual Assessment Type of Contact [] Declined real estate sales associate visit [] Patient/Family/Request visit [] Outpatient visit [] Follow-up visit [] Physician referral [] Code/Alert [] Routine visit [] Staff referral [] Actively dying [] Patient sleeping [] Family support [] [] Out of room [] Palliative care [] [] Receiving care in room [] Pre-surgical visit [] Trauma [] Long length of stay [] ICU visit [x] Other: Isolation Relational/Emotional Strength [] Patient feels connected with others/family/visitors/staff [] Distress [] Loneliness/isolation [] Abandonment Spirituality of Patient [] Person of [place] [] Attends Sikh of their [place] [] Believes in Prayer [] Reads Bible or Episcopalian materials [] There are Spiritual issues to be addressed Journalists And Other Writers Interventions [] Prayer [] Active listening [] Non-anxious presence [] Spiritual/emotional support [] Crisis/trauma care [] Spiritual counseling [] Bereavement support [] Provided bereavement packet [] Provided Bible/devotional materials [] Provided toy/stuffed animal, coloring book to patient or family member [] Provided Communion [] Anointing/[place] [] Salvation [] Completed spiritual assessment [] Other: Impact on Illness or Injury [] Angry [] Fearful [] Anxious [] Often cries [] Exhaustion [] Unable to work [] Unable to attend cheondoism [] Unable to walk/stand [] Unable to read [] Unable to drive [] Unable to eat/drink [] Unable to sleep [] Unable to be with family [] Patient intubated [] Other: Summary Patient is in Isolation. No real estate sales associate visit conducted Journalists And Other Writers Kimberly Colmenares Time spent with patient 2 min
[2019-09-30] MEDS: isosorbide mononitrate ER 30 mg Tablet 60 MG PO (17:13)
[2019-09-30 17:53] LABS: Glucose Point of Care 150 mg/dL (70-110)
[2019-09-30] MEDS: gabapentin 300 mg Capsule PO (20:40)
[2019-09-30 23:09] LABS: Glucose Point of Care 202 mg/dL (70-110)
[2019-10-01] VITALS (42 sets, daily range): BP systolic 129–176; BP diastolic 48–92; PULSE 34–66; RESP 14–25; TEMP 36.6–36.9; O2SAT 88–97
[2019-10-01] MEDS: propofol 1,000 MG/100 ML INJ 42.9 MG IV (00:03)
[2019-10-01] MEDS: piperacillin-tazobactam 3.375 GM in sodium chloride 0.9% (plus) 50 ML IV ×3 (00:35→17:30)
[2019-10-01] MEDS: propofol 1,000 MG/100 ML INJ 47.6 MG IV (01:24)
--- NOTE | 2019-10-01 02:09 | PC.NURSE ---
Dr Faulkner notified that patient's heartrate is dropping down into low 30s but is not substaining at that rate, pulse very irregular and increases in rate then decreases again, B/P is substaining WNL for patient. does have Atropine order PRN but wanted to clarify whether to administer or not. Dr Faulkner gave instructions to just continue as is with patient as long as pulse is above 30 and patient is asymptomatic. MMorgan RN
[2019-10-01] MEDS: enoxaparin 40 mg/0.4 mL Syringe SUBCUT (02:20)
[2019-10-01] MEDS: ipratropium-albuterol 3 mL Neb INHALATION ×6 (03:18→23:22)
[2019-10-01] MEDS: propofol 1,000 MG/100 ML INJ 38.1 MG IV ×4 (03:41→09:13)
[2019-10-01 05:13] LABS: Anion Gap 20.7 (5-19); Blood Urea Nitrogen 37 mg/dL (8-23); Calcium 8.6 mg/dL (8.5-10.5); Carbon Dioxide 24 mmol/L (22-29); Chloride 93 mmol/L (98-107); Glomerular Filtration Rate 20.5 mL/min (90-130); Glucose 196 mg/dL (65-115); Magnesium 2.5 mg/dL (1.7-2.3); Osmolality Calculated 279 mOsm/kg (285-295); Phosphorus 5.3 mg/dL (2.5-4.5); Potassium 4.7 mmol/L (3.5-5.1); Sodium 133 mmol/L (136-145)
[2019-10-01 05:16] LABS: Hematocrit 27.5 % (37.0-47.0); Lymphocytes # 0.4 10^3/uL (0.8-4.8); Mean Corpuscular HGB Conc 29.1 g/dL (30.0-36.0); Mean Corpuscular Hemoglobin 26.8 pg (28.0-34.0); Mean Platelet Volume 9.6 fL (7.4-10.4); Monocytes # 0.2 10^3/uL (0.2-0.9); Monocytes % 2.4 %; Neutrophils # 6.3 10^3/uL (1.8-7.7); Nucleated Red Blood Cells % 0 %; Platelet Count 225 10^3/cmm (130-400); Red Blood Count 2.99 10^6/uL (4.1-5.3); Red Cell Distribution Width 15.9 % (12.1-15.1)
[2019-10-01 07:29] LABS: Glucose Point of Care 190 mg/dL (70-110)
[2019-10-01] MEDS: metOLazone 5 MG Tablet 10 MG PO (09:13)
[2019-10-01] MEDS: bumetanide 0.25 mg/mL SDV 10 mL 2 MG IV ×2 (09:13→17:31)
[2019-10-01] MEDS: fluoxetine 20 mg Capsule PO (09:14)
[2019-10-01] MEDS: oseltamivir phosphate 75 mg Capsule PO ×2 (09:14→17:32)
[2019-10-01] MEDS: multivitamin therapeutic Tablet 1 TAB PO (09:14)
[2019-10-01] MEDS: pantoprazole DR 40 mg Tablet PO (09:14)
[2019-10-01] MEDS: amlodipine 5 mg Tablet PO ×2 (09:14→17:32)
[2019-10-01] MEDS: sevelamer 800 mg Tablet PO ×3 (09:20→17:34)
--- NOTE | 2019-10-01 09:44 | PC.NURSE ---
loose bm noted indu care done position on left side and ointment applied has red irritated but blanchable areas
--- NOTE | 2019-10-01 10:20 | PM.PN ---
Subjective Subjective: Interval history: Patient seen and examined, remains on vent support. No new issues. Comfortable on the vent. UO 800 overnight and 400 cc so far today. Waking as sedation is brought off. FiO2 35% and PEEP of 5. No other new issues, she remains hemodynamically stable. Dialyzed yesterday with UF 2L Medications: Reviewed: Yes Medication Review Details: Current Medications Generic Name Dose Route Start Last Admin Trade Name Freq PRN Reason Stop Dose Admin Albuterol/Ipratrop ium 3 ml 09/27/19 08:00 09/30/19 07:24 Duoneb INHALATION 3 ml Q4H MADELEINE Administration Amlodipine Besylat e 5 mg 09/27/19 09:00 09/30/19 08:51 Norvasc PO 5 mg BID MADELEINE Administration Bumetanide 2 mg 09/27/19 09:00 09/30/19 08:51 Bumex IV 2 mg BID MADELEINE Administration Enoxaparin Sodium 40 mg 09/30/19 02:00 09/30/19 01:47 Lovenox SUBCUT 40 mg Q24H MADELEINE Administration Ferrous Sulfate 300 mg 09/27/19 09:15 09/30/19 05:30 Ferrous Sulfate PO 300 mg QAM MADELEINE Administration Fluoxetine HCl 20 mg 09/27/19 09:00 09/30/19 08:51 Prozac PO 20 mg DAILY MADELEINE Administration Gabapentin 300 mg 09/27/19 21:00 09/29/19 20:03 Neurontin PO 300 mg BEDTIME MADELEINE Administration Propofol 1,000 mg in 100 m ls @ 0 mls/hr 09/27/19 01:00 09/30/19 08:47 Diprivan IV 45 mcg/kg/min .Q0M MADELEINE 42.9 mls/hr Administration Protocol Per Protocol Piperacillin Sod/T azobactam 50 mls @ 12.5 mls /hr 09/27/19 03:00 09/30/19 05:31 Sod 3.375 gm/ So dium Chloride IV 12.5 mls/hr Q8H MADELEINE Administration Protocol As Directed Vancomycin HCl 1,5 00 mg/ 250 mls @ 166.667 mls/hr 09/29/19 12:00 09/29/19 11:41 Sodium Chloride IV 166.7 mls/hr Q24H MADELEINE Administration Protocol Insulin Aspart 0 unit 09/27/19 08:00 09/30/19 07:32 Novolog SUBCUT 8 unit TIDWM MADELEINE Administration Protocol Isosorbide Mononit rate 60 mg 09/27/19 09:00 09/30/19 09:19 Imdur PO Not Given BID [facility] Magnesium Hydroxid e 30 ml 09/29/19 18:30 09/30/19 08:48 Milk Of Magnesia PO 30 ml DAILY MADELEINE Administration Methylprednisolone Sodium Succinate 40 mg 09/27/19 02:14 09/30/19 05:30 Solu-Medrol IVP 40 mg Q8H MADELEINE Administration Metolazone 10 mg 09/27/19 02:14 09/30/19 08:48 Zaroxolyn PO 10 mg DAILY MADELEINE Administration Multivitamins Ther apeutic 1 tab 09/27/19 09:00 09/30/19 08:50 Multivitamin Tab PO 1 tab DAILY [facility] Administration Oseltamivir Phosph ate 75 mg 09/27/19 09:00 09/30/19 08:51 Tamiflu PO 75 mg BID [facility] Administration Pantoprazole Sodiu m 40 mg 09/27/19 09:00 09/30/19 08:48 Protonix PO 40 mg DAILY [facility] Administration Rocuronium [place] 200 mg 09/27/19 00:29 09/27/19 00:43 Zemuron IV 200 mg Q1H PRN Administration NEEDED FOR FEV ER OR PAIN Senna 8.6 mg 09/27/19 09:00 09/30/19 08:48 Senna Lax PO 8.6 mg BID [facility] Administration Sevelamer Carbonat e 800 mg 09/27/19 08:00 09/30/19 08:52 Renvela PO 800 mg TIDWM [facility] Administration Vitals/I&O/Wt Last Vital Signs Temp 98 F 10/01/19 09:00 Pulse 39 L 10/01/19 10:00 Resp 19 H 10/01/19 09:08 BP 129/48 10/01/19 10:00 Pulse Ox 93 10/01/19 08:00 09/30/19 10/01/19 10/01/19 22:59 06:59 14:59 Intake Total 1447.23 / 1681.60 703.605 / 2385.205 132.080 / 132.080 Output Total 950 / 950 500 / 1450 Balance 497.23 / 731.60 203.605 / 935.205 132.080 / 132.080 Weight last 48 hrs Weight 156.603 kg Weight 156.688 kg Physical Exam Const: COMMON NORMALS: no apparent distress ORIENTATION/CONSCIOUSNESS: Yes obtunded Neck/C-Spine: COMMON NORMALS: no JVD Lymph: LYMPHATIC: no lymphadenopathy noted Cardio: COMMON NORMALS: no JVD and regular rhythm; negative for regular rate (bradycardia) RATE: abnormal rate (bradycardia) RHYTHM: regular rhythm GI: INSPECTION: Yes normal to inspection and Yes abdominal wall ecchymosis Extremity: COMMON NORMALS: normal to inspection and full ROM Urinary Catheter Management^: Daniel: Cath Placed During This Visit: yes Urethral Indwelling: Yes Reason for Continuing Indwelling Catheter: Accurate Measurement of Urinary Output in Critically Ill Patients Urinary Catheter Date of Insertion: 09/27/19 Urinary Catheter Time of Insertion: 00:05 Data : 10/01/19 04:30 10/01/19 04:30 A&P Additional A&P Information 1. Renal failure it is likely that she is now sustained another hit of significant infection/ischemic ATN. plan to give her a break over the weekend but will eval her daily to see if she develops and acute need I'm hopeful she is close to recovery strict ins and outs 2. Hyperkalemia. now in safe range 3. Multisystem organ failure given the recent admission with pneumonia and possible urinary tract infection, she's currently being treated for sources of infection with cultures sent and pending. Cass and Laureen on board 4. Respiratory failure different management to the ICU team in terms of weaning her off the vent over the next few days. Prognosis remains very guarded at this time. Interview and evaluation for invited telemedicine. The case was discussed at length with ICU RNs at bedside Attestations Medical Necessity Statement*: eval for renal failure Coding Level of Care Code Acute Mica Plate Layer for Amelia Haddad
--- NOTE | 2019-10-01 10:35 | PM.PN ---
Subjective Subjective: Interval history: AM labs noted, had 650 mL urine output overnight. Will start weaning trial. Still has + fluid balance of 3.5 L. No HD today. Patient seen and examined several times throughout the day. Did well with weaning trial and successfully extubated this afternoon. BiPAP at bedside, currently on nasal cannula at 6 L and saturating at 92%. In no apparent distress, no acute overnight events reported. Seems to be in good spirits. Will have bedside dysphasia screening done and if passed will start on clear liquid diet. Medications: Reviewed: Yes Medication Review Details: Current Medications Generic Name Dose Route Start Last Admin Trade Name Freq PRN Reason Stop Dose Admin Albuterol/Ipratrop ium 3 ml 09/27/19 08:00 10/01/19 07:30 Duoneb INHALATION 3 ml Q4H MADELEINE Administration Amlodipine Besylat e 5 mg 09/27/19 09:00 10/01/19 09:14 Norvasc PO 5 mg BID MADELEINE Administration Bumetanide 2 mg 09/27/19 09:00 10/01/19 09:13 Bumex IV 2 mg BID MADELEINE Administration Enoxaparin Sodium 40 mg 09/30/19 02:00 10/01/19 02:20 Lovenox SUBCUT 40 mg Q24H MADELEINE Administration Ferrous Sulfate 300 mg 09/27/19 09:15 10/01/19 05:01 Ferrous Sulfate PO 300 mg QAM MADELEINE Administration Fluoxetine HCl 20 mg 09/27/19 09:00 10/01/19 09:14 Prozac PO 20 mg DAILY MADELEINE Administration Gabapentin 300 mg 09/27/19 21:00 09/30/19 20:40 Neurontin PO 300 mg BEDTIME MADELEINE Administration Propofol 1,000 mg in 100 m ls @ 0 mls/hr 09/27/19 01:00 10/01/19 09:13 Diprivan IV 40 mcg/kg/min .Q0M MADELEINE 38.1 mls/hr Administration Protocol Per Protocol Piperacillin Sod/T azobactam 50 mls @ 12.5 mls /hr 09/27/19 03:00 10/01/19 09:12 Sod 3.375 gm/ So dium Chloride IV 12.5 mls/hr Q8H MADELEINE Administration Protocol As Directed Vancomycin HCl 1,5 00 mg/ 250 mls @ 166.667 mls/hr 09/29/19 12:00 09/30/19 21:24 Sodium Chloride IV Infused Q24H [facility] Infusion Protocol Insulin Aspart 0 unit 09/27/19 08:00 10/01/19 07:32 Novolog SUBCUT 6 unit TIDWM [facility] Administration Protocol Isosorbide Mononit rate 60 mg 09/27/19 09:00 09/30/19 17:13 Imdur PO 60 mg BID [facility] Administration Magnesium Hydroxid e 30 ml 09/29/19 18:30 10/01/19 09:16 Milk Of Magnesia PO Not Given DAILY [facility] Methylprednisolone Sodium Succinate 40 mg 09/27/19 02:14 10/01/19 09:20 Solu-Medrol IVP 40 mg Q8H [facility] Administration Metolazone 10 mg 09/27/19 02:14 10/01/19 09:13 Zaroxolyn PO 10 mg DAILY [facility] Administration Multivitamins Ther apeutic 1 tab 09/27/19 09:00 10/01/19 09:14 Multivitamin Tab PO 1 tab DAILY [facility] Administration Oseltamivir Phosph ate 75 mg 09/27/19 09:00 10/01/19 09:14 Tamiflu PO 75 mg BID [facility] Administration Pantoprazole Sodiu m 40 mg 09/27/19 09:00 10/01/19 09:14 Protonix PO 40 mg DAILY [facility] Administration Rocuronium [place] 200 mg 09/27/19 00:29 09/27/19 00:43 Zemuron IV 200 mg Q1H PRN Administration NEEDED FOR FEV ER OR PAIN Senna 8.6 mg 09/27/19 09:00 10/01/19 09:16 Senna Lax PO Not Given BID [facility] Sevelamer Carbonat e 800 mg 09/27/19 08:00 10/01/19 09:20 Renvela PO 800 mg TIDWM [facility] Administration Vitals/I&O/Wt Last Vital Signs Temp 98 F 10/01/19 09:00 Pulse 39 L 10/01/19 10:00 Resp 19 H 10/01/19 09:08 BP 129/48 10/01/19 10:00 Pulse Ox 93 10/01/19 08:00 09/30/19 10/01/19 10/01/19 22:59 06:59 14:59 Intake Total 1447.23 / 1681.60 703.605 / 2385.205 132.080 / 132.080 Output Total 950 / 950 500 / 1450 Balance 497.23 / 731.60 203.605 / 935.205 132.080 / 132.080 Weight last 48 hrs Weight 156.603 kg Weight 156.688 kg Physical Exam Narrative: EXAM NARRATIVE: <del>-Propofol</del> <del>@</del> <del>45</del> <del>mcg/kg/min</del> <del>-tube</del> <del>feeds</del> <del>@</del> <del>20</del> <del>mL/hr</del> Const: COMMON NORMALS: no apparent distress GENERAL APPEARANCE: cooperative and comfortable NUTRITIONAL APPEARANCE: obese morbidly obese ORIENTATION/CONSCIOUSNESS: Yes other (Sedated) HENMT: COMMON NORMALS: normocephalic, head/scalp atraumatic, hearing grossly normal bilaterally and moist oral mucous membranes HEAD & SCALP: normocephalic and atraumatic OTHER: -ETT: 24 cm @ lip Eye: COMMON NORMALS: PERRL, EOMs intact bilaterally and conjunctivae normal CONJUNCTIVA: Yes conjunctivae normal PUPIL: Yes PERRL Neck/C-Spine: COMMON NORMALS: full ROM GENERAL: Yes trachea midline OTHER: short, thick neck Chest: OTHER: -Port-A-Cath in place on right, accessed Resp: COMMON NORMALS: no retractions and no use of accessory muscles EFFORT & INSPECTION: Yes symmetric chest movement and No tachypneic AUSCULTATION: rhonchi (Improving) throughout OTHER: -auscultation limited by body habitus -<del>on</del> <del>vent</del> <del>support;</del> <del>40%/450/10;</del> <del>breathing</del> <del>over</del> <del>vent</del> Cardio: COMMON NORMALS: regular rhythm, S1 normal heart sound, S2 normal heart sound and no murmurs RATE: bradycardic (intermittently) RHYTHM: regular rhythm HEART SOUNDS: S1 normal and S2 normal GI: COMMON NORMALS: normal to inspection, nondistended, normoactive bowel sounds, soft to palpation and non-tender INSPECTION: Yes anasarca present, Yes central obesity and Yes pannus present PALPATION: Yes soft : OTHER: -femoral (R) tunneled catheter Extremity: COMMON NORMALS: normal to inspection and full ROM; negative for no pedal edema OTHER: -non-pitting edema on bilateral upper thighs and lower abdominal wall Neuro: COMMON NORMALS: no focal motor deficits OTHER: responsive to verbal and tactile stimulation Psych: COMMON NORMALS: mental status grossly normal, thought process normal, cooperative, affect normal and speech normal SPEECH: Yes normal speech THOUGHT PROCESS: normal thought process OTHER: sedated Skin: COMMON NORMALS: no jaundice, no petechiae and no mottling OTHER: -chronic venous stasis dermatitis on bilateral lower extremities -onychomycosis of bilateral toenails, worse on the R -R gluteal area with noted shearing, blanchable erythema on the rest of the sacral area -extensive intertrigo over multiple skin folds including axillary areas, pannus, inguinal areas Urinary Catheter Management^: Daniel: Cath Placed During This Visit: yes Urethral Indwelling: Yes Reason for Continuing Indwelling Catheter: Accurate Measurement of Urinary Output in Critically Ill Patients Urinary Catheter Date of Insertion: 09/27/19 Urinary Catheter Time of Insertion: 00:05 Data : 10/01/19 04:30 10/01/19 04:30 A&P Assessment and plan (1) Acute on chronic respiratory failure with hypoxia and hypercapnia: -required intubation and remains on vent support (day 5); start weaning trial today -is oxygen dependent at baseline, 2 L, BiPAP qhs -BNP: 46,000; chronically elevated -CXR: noted LLL atelectasis vs. consolidation and patchy RLL infiltrates; unchanged today -on IV steroids, empiric antibiotics (on Vanc/Zosyn); s/p extubation, will switch to oral steroids -ABG noted, normal pH, resolved hypoxia and hypercapnia -influenza B positive; on droplet precautions, on Tamiflu (day 12/26) -blood cx: negative -sputum cx: mixed geoff Status: Acute Code(s): J96.21 - Acute and chronic respiratory failure with hypoxia; J96.22 - Acute and chronic respiratory failure with hypercapnia (2) Acute kidney injury: -ROBBIE on CKD stage 4; baseline Cr is around 2-3 -continue to monitor renal function -Nephrology consult appreciated -HD x 3 sessions; no HD today; has tunneled catheter (femoral) in place -renally dose meds, avoid nephrotoxins -has Daniel catheter in place, continue to monitor urine output Status: Acute Code(s): N17.9 - Acute kidney failure, unspecified (3) Congestive heart failure: -Echo: EF=55%, no RWMA, G2DD, mild TR; clinically anasarcic -on IV diuresis with Bumex; positive fluid balance persists -on vent support -daily weights, monitor Is & Os -receiving HD intermittently Status: Acute Qualifiers: Heart failure chronicity: acute on chronic Heart failure type: diastolic Qualified Code(s): I50.33 - Acute on chronic diastolic (congestive) heart failure Code(s): I50.9 - Heart failure, unspecified (4) Acute hyperkalemia: -persistent hyperkalemia despite medical intervention responded to HD; K wnl -continue to monitor Status: Acute Code(s): E87.5 - Hyperkalemia Additional A&P Information -HTN; BP appropriate -Acute on chronic normocytic anemia; baseline Hg 7-8. Continue to monitor H/H. Has had GI w/u done before showing antral petechiae and colonoscopy showing diverticulosis; no active bleeding (12/2016). S/p 1 unit of PRBCs on 09/28; improvement in Hg noted today. -IDDM type II; A1c-5.5 -Morbid obesity: BMI-56 kg/m2 -Chronic constipation; on bowel regimen, no BMs yet -Peripheral vascular disease -Depression, anxiety -Bradycardia; chronic; Atropine PRN -UTI; on antibiotics; urine cx-mixed geoff -hx of R hydronephrosis s/p ureteral stent. Daniel catheter in place -continue meds as ordered -fall precautions -d/c tube feeds, bedside dysphagia screening, CLD if passed -DVT ppx with heparin; monitor H/H closely -Dispo: [facility] -Code status: FULL code -continue ICU care due to high risk for decompensation Attestations Medical Necessity Statement*: Patient requires hospitalization for continued management of acute respiratory failure, anasarca, requiring intermittent dialysis and continued IV diuresis. Time Spent in Patient Care: Greater than 35 minutes (>than 50% of time spent in counselling and/or direct pt care on unit). Critical Care Time: The high probability of a clinically significant, sudden or life threatening deterioration of the patient's [cardiovascular, respiratory] system(s) required my full and direct attention, intervention and personal management. The critical care time is as shown. This time is in addition to time spent performing any reported procedures but includes the following: [x] Data and vital sign review and interpretation [x] Patient assessment, examination and intervention [x] Documentation [x] Medication orders and management Critical Care Time (min): 30 Coding Level of Care Code Acute Automatic Brine Mixer Operator for Chg Fwd Exam Problem Focused Diagnoses Acute on chronic respiratory failure with hypoxia and hypercapnia J96.21; J96.22 Acute kidney injury N17.9 Congestive heart failure I50.33 Heart failure chronicity: acute on chronic Heart failure type: diastolic Acute hyperkalemia E87.5
[2019-10-01 11:04] LABS: Glucose Point of Care 143 mg/dL (70-110)
[2019-10-01 11:40] LABS: Vancomycin Trough 24.5 ug/mL (10-15)
--- NOTE | 2019-10-01 13:29 | PC.NURSE ---
up in bed had soft bm indu care done and ointment applied bottom remains red and excoriated but blanchable propfol gtt decreased vent cpap up watching tv at this time
--- NOTE | 2019-10-01 14:41 | PC.NURSE ---
loose bm pericare done and area cleansed bottom reamins red ointment applied
[2019-10-01 15:02] LABS: ABG PCO2 41.3 mmHg (35-45); ABG PH Result 7.41 (7.35-7.45); Arterial Blood Gas Hematocrit 29.5 % (37-47); Base Excess ABG 1.1 mmol/L (-2.0-2.0); Blood Gas Allen Test Pos; Blood Gas Sample Site Brachial, right; Blood Gas Sample Type Arterial; Oxygen Device VENT; PO2 ABG 58.2 mmHg (80.0-100.0)
--- NOTE | 2019-10-01 15:47 | PC.NURSE ---
extubated at this time placed on 6l nc at this time pt alert and oriented arquing with staff about wearing o2
[2019-10-01 17:09] LABS: Glucose Point of Care 134 mg/dL (70-110)
[2019-10-01] MEDS: isosorbide mononitrate ER 30 mg Tablet 60 MG PO (17:31)
[2019-10-01] MEDS: acetaminophen 325 mg Tablet 650 MG PO (17:33)
[2019-10-01 22:01] LABS: Glucose Point of Care 161 mg/dL (70-110)
[2019-10-01] MEDS: predniSONE 20 mg Tablet 60 MG PO (22:16)
[2019-10-01] MEDS: gabapentin 300 mg Capsule PO (22:16)
[2019-10-02] VITALS (39 sets, daily range): BP systolic 114–185; BP diastolic 65–107; PULSE 48–66; RESP 15–31; TEMP 36.6–36.7; O2SAT 90–100
[2019-10-02] MEDS: piperacillin-tazobactam 3.375 GM in sodium chloride 0.9% (plus) 50 ML IV ×3 (03:02→17:05)
[2019-10-02] MEDS: enoxaparin 40 mg/0.4 mL Syringe SUBCUT (03:03)
[2019-10-02] MEDS: ipratropium-albuterol 3 mL Neb INHALATION ×6 (03:40→23:26)
[2019-10-02 04:22] LABS: Basophils % 0.1 %; Hematocrit 30.7 % (37.0-47.0); Hemoglobin 9.1 g/dL (11.5-15.3); Lymphocytes # 0.4 10^3/uL (0.8-4.8); Lymphocytes % 3.6 %; Mean Corpuscular HGB Conc 29.6 g/dL (30.0-36.0); Mean Corpuscular Hemoglobin 27.5 pg (28.0-34.0); Mean Corpuscular Volume 92.7 fL (81-99); Mean Platelet Volume 9.6 fL (7.4-10.4); Monocytes # 0.1 10^3/uL (0.2-0.9); Neutrophils # 9.7 10^3/uL (1.8-7.7); Neutrophils % 93.1 %; Nucleated Red Blood Cells % 0 %; Platelet Count 268 10^3/cmm (130-400); Red Blood Count 3.31 10^6/uL (4.1-5.3); Red Cell Distribution Width 15.9 % (12.1-15.1); White Blood Count 10.4 10^3/uL (4.0-10.0)
[2019-10-02 04:36] LABS: Anion Gap 23.8 (5-19); Blood Urea Nitrogen 42 mg/dL (8-23); Calcium 8.9 mg/dL (8.5-10.5); Carbon Dioxide 24 mmol/L (22-29); Chloride 91 mmol/L (98-107); Glomerular Filtration Rate 19.6 mL/min (90-130); Glucose 214 mg/dL (65-115); Osmolality Calculated 282 mOsm/kg (285-295); Potassium 4.8 mmol/L (3.5-5.1); Sodium 134 mmol/L (136-145)
--- NOTE | 2019-10-02 05:00 | PC.NURSE ---
Patient in bed talking on phone to her friend very upset claiming her glasses have been lost during this hospital stay. I asked patient about this and she stated this was the second pair of her glasses that this hospital has lost and she cannot afford the $800 it will take to replace them. I told her I would make a note of this in her chart and pass this information on [facility] been [facility] and would tell the ICU overnight stocker also. I then exited her room and spoke to the overnight stocker of ICU who said that she knew of the issue and would take care of it. Information also reported to brady day shift RN. MMorgan RN
--- NOTE | 2019-10-02 07:37 | P.PN_ITS ---
Subjective Subjective: Interval history: feels better. extubated. no n/v/f/c/hawthorne/d Medications: Reviewed: Yes Medication Review Details: Current Medications Acetaminophen (Tylenol) 650 mg PO Q6H PRN PRN Reason: Mild/Mod Pain Or Temp >/= 101 Last Admin: 10/01/19 17:33 Dose: 650 mg Documented by: Albuterol/Ipratropium (Duoneb) 3 ml INHALATION Q4H [facility] Last Admin: 10/02/19 07:24 Dose: 3 ml Documented by: Amlodipine Besylate (Norvasc) 5 mg PO BID [facility] Last Admin: 10/01/19 17:32 Dose: 5 mg Documented by: Atropine Sulfate (Atropine Syr) 0.5 mg IVP PRN PRN PRN Reason: HEART RATE < 40/MIN Bumetanide (Bumex) 2 mg IV BID [facility] Last Admin: 10/01/19 17:31 Dose: 2 mg Documented by: Dextrose (D50w) 25 ml IVP ONCE PRN; Protocol PRN Reason: hypoglycemia protocol Dextrose (D50w) 50 ml IVP PRN PRN; Protocol PRN Reason: hypoglycemia protocol Enoxaparin Sodium (Lovenox) 40 mg SUBCUT Q24H [facility] Last Admin: 10/02/19 03:03 Dose: 40 mg Documented by: Ferrous Sulfate (Ferrous Sulfate) 300 mg PO QAM [facility] Last Admin: 10/02/19 07:10 Dose: 300 mg Documented by: Fluoxetine HCl (Prozac) 20 mg PO DAILY [facility] Last Admin: 10/01/19 09:14 Dose: 20 mg Documented by: Gabapentin (Neurontin) 300 mg PO BEDTIME [facility] Last Admin: 10/01/19 22:16 Dose: 300 mg Documented by: Glucagon (Glucagen) 1 mg IM ONCE PRN; Protocol PRN Reason: Adult Acute Hypoglycemia Prot. Dextrose (D5w) 500 mls @ 100 mls/hr IV ONCE PRN; Protocol PRN Reason: Adult Acute Hypoglycemia Prot Piperacillin Sod/Tazobactam (Sod 3.375 gm/ Sodium Chloride) 50 mls @ 12.5 mls/hr IV Q8H [facility]; Protocol Last Infusion: 10/02/19 07:00 Dose: Infused Documented by: Vancomycin HCl 1,500 mg/ (Sodium Chloride) 250 mls @ 166.667 mls/hr IV Q36H [facility]; Protocol Last Infusion: 10/02/19 04:30 Dose: Infused Documented by: Insulin Aspart (Novolog) 0 unit SUBCUT TIDWM [facility]; Protocol Last Admin: 10/01/19 17:20 Dose: Not Given Documented by: Isosorbide Mononitrate (Imdur) 60 mg PO BID [facility] Last Admin: 10/01/19 17:31 Dose: 60 mg Documented by: Magnesium Hydroxide (Milk Of Magnesia) 30 ml PO DAILY [facility] Last Admin: 10/01/19 09:16 Dose: Not Given Documented by: Metolazone (Zaroxolyn) 10 mg PO DAILY [facility] Last Admin: 10/01/19 09:13 Dose: 10 mg Documented by: Multivitamins Therapeutic (Multivitamin Tab) 1 tab PO DAILY [facility] Last Admin: 10/01/19 09:14 Dose: 1 tab Documented by: Ondansetron HCl (Zofran) 4 mg IVP Q8H PRN PRN Reason: vomiting, or N/V if npo Pantoprazole Sodium (Protonix) 40 mg PO DAILY [facility] Last Admin: 10/01/19 09:14 Dose: 40 mg Documented by: Prednisone (Prednisone) 60 mg PO DAILY [facility] Last Admin: 10/01/19 22:16 Dose: 60 mg Documented by: Senna (Senna Lax) 8.6 mg PO BID [facility] Last Admin: 10/01/19 17:43 Dose: Not Given Documented by: Sevelamer Carbonate (Renvela) 800 mg PO TIDWM [facility] Last Admin: 10/01/19 17:34 Dose: 800 mg Documented by: Vitals/I&O/Wt Last Vital Signs Temp 98.0 F 10/02/19 06:00 Pulse 55 L 10/02/19 07:29 Resp 18 10/02/19 07:27 BP 170/86 10/02/19 07:00 Pulse Ox 92 10/02/19 07:27 10/01/19 10/02/19 10/02/19 22:59 06:59 14:59 Intake Total 880 / 1062.080 550 / 1612.080 50 / 50 Output Total 800 / 800 850 / 1650 Balance 80 / 262.080 -300 / -37.920 50 / 50 Weight last 48 hrs Weight 156.659 kg Weight 156.603 kg Physical Exam Narrative: EXAM NARRATIVE: obese lady in bed, swollen, NARD vs noted- hypertensive heent- nc/at, eomi, anicteric neck- supple lungs dull bases heart rrr, +ARRON abd soft, nt, nd, +BS ext b/l edema skin- venous changes in legs, blue color to legs neuro- a,a, o x 1-2 Urinary Catheter Management^: Daniel: Cath Placed During This Visit: yes Urethral Indwelling: Yes Reason for Continuing Indwelling Catheter: Accurate Measurement of Urinary Output in Critically Ill Patients Urinary Catheter Date of Insertion: 09/27/19 Urinary Catheter Time of Insertion: 00:05 Data : 10/02/19 03:54 10/02/19 03:54 A&P Additional A&P Information 1. Renal failure ROBBIE- presumed ATN. hold dialysis -on bumex- may need inc dose -monitor for renal recovery -has a right femoral shiley catheter 2. Hyperkalemia. improved w/ dialysis 3. Multisystem organ failure given the recent admission with pneumonia and possible urinary tract infection, she's currently being treated for sources of infection with cultures sent and pending. Vanco and Zosyn on board -urine is purulent -check vanco troughs, keep under 19 4. Respiratory failure -extubated -cont to diurese 5. anemia- check iron studies likely ACD hgb stable 6. hyponatremia from ROBBIE and pulm process check tsh 7. repeat cxr seen w/ RN Attestations Medical Necessity Statement*: sepsis, robbie Time Spent in Patient Care: 16 - 35 minutes (>than 50% of time spent in counselling and/or direct pt care on unit) . Coding Level of Care Code Acute Supervisor [employer] for Amelia Haddad
--- NOTE | 2019-10-02 07:44 | XR_ITS ---
WS: [id number] ONE VIEW CHEST HISTORY: 59 years old Female with sob/ chf/ deborah AP semiupright chest comparison 09/30/2019 FINDINGS: Interval removal of ETT and NGT and unchanged right subclavian vein Port-A-Cath. Increased right indu hilar lower lung zone airspace opacity. No pneumothorax or definite right pleural effusion. Continued small to moderate left pleural effusion and basilar atelectasis and/or consolidation. Continued card iomegaly, pulmonary venous congestion, thoracic or atherosclerosis. XR/XR chest 1V portable [id number] IMPRESSION: 1. Interval removal ETT and NGT with unchanged right subclavian vein Port-A-Cat h. 2. New right perihilar and lower lung zone edema, atelectasis, and/or pneumonia . 3. Unimproved left lower lung zone atelectasis, edema, and/or pneumonia with sm all to moderate left pleural effusion.
[2019-10-02 07:46] LABS: Glucose Point of Care 186 mg/dL (70-110)
[2019-10-02] MEDS: bumetanide 0.25 mg/mL SDV 10 mL 2 MG IV (08:14)
[2019-10-02] MEDS: fluoxetine 20 mg Capsule PO (08:15)
[2019-10-02] MEDS: predniSONE 20 mg Tablet 60 MG PO (08:16)
[2019-10-02] MEDS: isosorbide mononitrate ER 30 mg Tablet 60 MG PO ×2 (08:16→17:05)
[2019-10-02] MEDS: amlodipine 5 mg Tablet PO ×2 (08:16→17:05)
[2019-10-02] MEDS: metOLazone 5 MG Tablet 10 MG PO (08:16)
[2019-10-02] MEDS: pantoprazole DR 40 mg Tablet PO (08:16)
[2019-10-02] MEDS: multivitamin therapeutic Tablet 1 TAB PO (08:17)
[2019-10-02] MEDS: sevelamer 800 mg Tablet PO ×3 (09:08→17:05)
--- NOTE | 2019-10-02 09:40 | PC.SOCIAL ---
IMM Page 2 of IMM explained to and signed by patient. She verbalizes understanding. Initialed, dated, and timed and placed in chart. Copy provided to patient.
[2019-10-02 10:05] LABS: Ferritin 179 ng/mL (15-150)
[2019-10-02 10:30] LABS: Vancomycin Trough 37.9 ug/mL (10-15)
[2019-10-02 10:38] LABS: Calcium 8.9 mg/dL (8.5-10.5); Parathyroid Hormone 196.8 pg/mL (15-65)
--- NOTE | 2019-10-02 10:57 | PM.PN ---
Subjective Subjective: Interval history: AM labs noted, had 850 mL urine output overnight, large BM this AM. Down to 4 L NC. + fluid balance persists, increase dose of Bumex. Patient seen and examined, currently resting with BiPAP on. No acute overnight events reported. Will likely receive hemodialysis tomorrow. Medications: Reviewed: Yes Medication Review Details: Current Medications Generic Name Dose Route Start Last Admin Trade Name Freq PRN Reason Stop Dose Admin Acetaminophen 650 mg 09/27/19 02:14 10/01/19 17:33 Tylenol PO 650 mg Q6H PRN Administration Mild/Mod Pain Or Temp >/= 101 Albuterol/Ipratrop ium 3 ml 09/27/19 08:00 10/02/19 07:24 Duoneb INHALATION 3 ml Q4H MADELEINE Administration Amlodipine Besylat e 5 mg 09/27/19 09:00 10/02/19 08:16 Norvasc PO 5 mg BID MADELEINE Administration Enoxaparin Sodium 40 mg 09/30/19 02:00 10/02/19 03:03 Lovenox SUBCUT 40 mg Q24H MADELEINE Administration Ferrous Sulfate 300 mg 09/27/19 09:15 10/02/19 07:10 Ferrous Sulfate PO 300 mg QAM MADELEINE Administration Fluoxetine HCl 20 mg 09/27/19 09:00 10/02/19 08:15 Prozac PO 20 mg DAILY MADELEINE Administration Gabapentin 300 mg 09/27/19 21:00 10/01/19 22:16 Neurontin PO 300 mg BEDTIME MADELEINE Administration Piperacillin Sod/T azobactam 50 mls @ 12.5 mls /hr 09/27/19 03:00 10/02/19 09:08 Sod 3.375 gm/ So dium Chloride IV 12.5 mls/hr Q8H MADELEINE Administration Protocol As Directed Vancomycin HCl 1,5 00 mg/ 250 mls @ 166.667 mls/hr 10/02/19 00:00 10/02/19 04:30 Sodium Chloride IV Infused Q36H MADELEINE Infusion Protocol Insulin Aspart 0 unit 09/27/19 08:00 10/02/19 08:00 Novolog SUBCUT 4 unit TIDWM MADELEINE Administration Protocol Isosorbide Mononit rate 60 mg 09/27/19 09:00 10/02/19 08:16 Imdur PO 60 mg BID MADELEINE Administration Magnesium Hydroxid e 30 ml 02/06/20 18:30 10/02/19 08:25 Milk Of Magnesia PO Not Given DAILY MADELEINE Metolazone 10 mg 09/27/19 02:14 10/02/19 08:16 Zaroxolyn PO 10 mg DAILY MADELEINE Administration Multivitamins Ther apeutic 1 tab 09/27/19 09:00 10/02/19 08:17 Multivitamin Tab PO 1 tab DAILY MADELEINE Administration Pantoprazole Sodiu m 40 mg 09/27/19 09:00 10/02/19 08:16 Protonix PO 40 mg DAILY MADELEINE Administration Prednisone 60 mg 10/01/19 21:00 10/02/19 08:16 Prednisone PO 60 mg DAILY MADELEINE Administration Senna 8.6 mg 09/27/19 09:00 10/02/19 08:25 Senna Lax PO Not Given BID MADELEINE Sevelamer Carbonat e 800 mg 09/27/19 08:00 10/02/19 09:08 Renvela PO 800 mg TIDWM MADELIENE Administration Vitals/I&O/Wt Last Vital Signs Temp 98.0 F 10/02/19 06:00 Pulse 57 L 10/02/19 10:00 Resp 31 H 10/02/19 10:00 BP 151/72 10/02/19 10:00 Pulse Ox 92 10/02/19 10:00 10/01/19 10/02/19 10/02/19 22:59 06:59 14:59 Intake Total 880 / 1062.080 550 / 1612.080 50 / 50 Output Total 800 / 800 850 / 1650 Balance 80 / 262.080 -300 / -37.920 50 / 50 Weight last 48 hrs Weight 156.659 kg Weight 156.603 kg Physical Exam Const: COMMON NORMALS: no apparent distress, oriented x3 and alert GENERAL APPEARANCE: cooperative and comfortable NUTRITIONAL APPEARANCE: obese morbidly obese HENMT: COMMON NORMALS: normocephalic, head/scalp atraumatic, hearing grossly normal bilaterally and moist oral mucous membranes HEAD & SCALP: normocephalic and atraumatic Eye: COMMON NORMALS: PERRL, EOMs intact bilaterally and conjunctivae normal CONJUNCTIVA: Yes conjunctivae normal PUPIL: Yes PERRL Neck/C-Spine: COMMON NORMALS: full ROM GENERAL: Yes trachea midline OTHER: short, thick neck Chest: OTHER: -Port-A-Cath in place on right, accessed Resp: COMMON NORMALS: no retractions and no use of accessory muscles EFFORT & INSPECTION: Yes symmetric chest movement and No tachypneic AUSCULTATION: rhonchi (Improving) throughout OTHER: -auscultation limited by body habitus -<del>on</del> <del>vent</del> <del>support;</del> <del>40%/450/10;</del> <del>breathing</del> <del>over</del> <del>vent</del> Cardio: COMMON NORMALS: regular rhythm, S1 normal heart sound, S2 normal heart sound and no murmurs RATE: bradycardic (intermittently) RHYTHM: regular rhythm HEART SOUNDS: S1 normal and S2 normal GI: COMMON NORMALS: normal to inspection, nondistended, normoactive bowel sounds, soft to palpation and non-tender INSPECTION: Yes anasarca present, Yes central obesity and Yes pannus present PALPATION: Yes soft : BLADDER/KIDNEY EXAM: Yes catheter in place Catheter type (Female): urethral OTHER: -femoral (R) tunneled catheter Extremity: COMMON NORMALS: normal to inspection and full ROM; negative for no pedal edema OTHER: -non-pitting edema on bilateral upper thighs and lower abdominal wall Neuro: COMMON NORMALS: oriented x3 and no focal motor deficits SENSORIUM/ORIENTATION: Yes alert OTHER: responsive to verbal and tactile stimulation Psych: COMMON NORMALS: mental status grossly normal, thought process normal, cooperative, affect normal and speech normal SPEECH: Yes normal speech THOUGHT PROCESS: normal thought process OTHER: sedated Skin: COMMON NORMALS: no jaundice, no petechiae and no mottling OTHER: -chronic venous stasis dermatitis on bilateral lower extremities -onychomycosis of bilateral toenails, worse on the R -R gluteal area with noted shearing, blanchable erythema on the rest of the sacral area -extensive intertrigo over multiple skin folds including axillary areas, pannus, inguinal areas Urinary Catheter Management^: Daniel: Cath Placed During This Visit: yes Urethral Indwelling: Yes Reason for Continuing Indwelling Catheter: Accurate Measurement of Urinary Output in Critically Ill Patients Urinary Catheter Date of Insertion: 09/27/19 Urinary Catheter Time of Insertion: 00:05 Data : 10/02/19 03:54 10/02/19 03:54 A&P Assessment and plan (1) Acute on chronic respiratory failure with hypoxia and hypercapnia: -off vent support (5 days) -is oxygen dependent at baseline, 2 L, BiPAP qhs -BNP: 46,000; chronically elevated -CXR: noted LLL atelectasis vs. consolidation and patchy RLL infiltrates -on IV steroids, empiric antibiotics (on Vanc/Zosyn); s/p extubation, will switch to oral steroids -ABG noted, normal pH, resolved hypoxia and hypercapnia -influenza B positive; on droplet precautions, completed Tamiflu (day 12/26) -blood cx: negative -sputum cx: mixed geoff Status: Acute Code(s): J96.21 - Acute and chronic respiratory failure with hypoxia; J96.22 - Acute and chronic respiratory failure with hypercapnia (2) Acute kidney injury: -ROBBIE on CKD stage 4; baseline Cr is around 2-3 -continue to monitor renal function -Nephrology consult appreciated -HD x 3 sessions; no HD today; has tunneled catheter (femoral) in place -renally dose meds, avoid nephrotoxins -has Daniel catheter in place, continue to monitor urine output Status: Acute Code(s): N17.9 - Acute kidney failure, unspecified (3) Congestive heart failure: -Echo: EF=55%, no RWMA, G2DD, mild TR; clinically anasarcic -on IV diuresis with Bumex; positive fluid balance persists; increased dose today -off vent support -daily weights, monitor Is & Os -receiving HD intermittently Status: Acute Qualifiers: Heart failure chronicity: acute on chronic Heart failure type: diastolic Qualified Code(s): I50.33 - Acute on chronic diastolic (congestive) heart failure Code(s): I50.9 - Heart failure, unspecified (4) Acute hyperkalemia: -persistent hyperkalemia despite medical intervention responded to HD; K wnl -continue to monitor Status: Acute Code(s): E87.5 - Hyperkalemia Additional A&P Information -HTN; BP appropriate -Acute on chronic normocytic anemia; baseline Hg 7-8. Continue to monitor H/H. Has had GI w/u done before showing antral petechiae and colonoscopy showing diverticulosis; no active bleeding (12/2016). S/p 1 unit of PRBCs on 09/28; stable Hg -IDDM type II; A1c-5.5; continue accuchecks -Morbid obesity: BMI-56 kg/m2 -Chronic constipation; on bowel regimen -Peripheral vascular disease -Depression, anxiety -Bradycardia; chronic; Atropine PRN -UTI; on antibiotics; urine cx-mixed geoff -hx of R hydronephrosis s/p ureteral stent. Daniel catheter in place -continue meds as ordered -fall precautions -d/c tube feeds, bedside dysphagia screening, CLD if passed -DVT ppx with heparin; monitor H/H closely -Dispo: return to [facility] -Code status: FULL code -continue ICU care due to high risk for decompensation Attestations Medical Necessity Statement*: Patient requires hospitalization for continued treatment of pneumonia, UTI, anasarca and acutely impaired renal function. Time Spent in Patient Care: Greater than 35 minutes (>than 50% of time spent in counselling and/or direct pt care on unit). Critical Care Time: The high probability of a clinically significant, sudden or life threatening deterioration of the patient's [cardiovascular, respiratory] system(s) required my full and direct attention, intervention and personal management. The critical care time is as shown. This time is in addition to time spent performing any reported procedures but includes the following: [x] Data and vital sign review and interpretation [x] Patient assessment, examination and intervention [x] Documentation [x] Medication orders and management Critical Care Time (min): 20 Coding Level of Care Code Acute Paper Latcher for g Fwd Exam Problem Focused Diagnoses Acute on chronic respiratory failure with hypoxia and hypercapnia J96.21; J96.22 Acute kidney injury N17.9 Congestive heart failure I50.33 Heart failure chronicity: acute on chronic Heart failure type: diastolic Acute hyperkalemia E87.5
[2019-10-02 11:49] LABS: Glucose Point of Care 184 mg/dL (70-110)
--- NOTE | 2019-10-02 14:11 | PC.CHAP ---
Pastoral Care Encounter/Spiritual Assessment Type of Contact [x] Declined family intervention specialist visit [] Patient/Family/Request visit [] Outpatient visit [] Follow-up visit [] Physician referral [] Code/Alert [x] Routine visit [] Staff referral [] Actively dying [] Patient sleeping [] Family support [] [] Out of room [] Palliative care [] [] Receiving care in room [] Pre-surgical visit [] Trauma [] Long length of stay [x] ICU visit [] Other: Relational/Emotional Strength [] Patient feels connected with others/family/visitors/staff [] Distress [] Loneliness/isolation [] Abandonment Spirituality of Patient [] Person of [place] [] Attends Taoist of their [place] [] Believes in Prayer [] Reads Bible or Hoahaoism materials [] There are Spiritual issues to be addressed Assistant Teaching Professor Interventions [] Prayer [] Active listening [] Non-anxious presence [] Spiritual/emotional support [] Crisis/trauma care [] Spiritual counseling [] Bereavement support [] Provided bereavement packet [] Provided Bible/devotional materials [] Provided toy/stuffed animal, coloring book to patient or family member [] Provided Communion [] Anointing/[place] [] Salvation [x] Completed spiritual assessment [] Other: Impact on Illness or Injury [] Angry [] Fearful [] Anxious [] Often cries [] Exhaustion [] Unable to work [] Unable to attend scientology [] Unable to walk/stand [] Unable to read [] Unable to drive [] Unable to eat/drink [] Unable to sleep [] Unable to be with family [] Patient intubated [] Other: Summary Time spent with patient
[2019-10-02 17:02] LABS: Glucose Point of Care 209 mg/dL (70-110)
[2019-10-02] MEDS: bumetanide 0.25 mg/mL SDV 10 mL 4 MG IV (17:06)
[2019-10-02] MEDS: acetaminophen 325 mg Tablet 650 MG PO (20:48)
[2019-10-02] MEDS: guaiFENesin 600 mg Tablet 1200 MG PO (20:49)
[2019-10-02] MEDS: gabapentin 300 mg Capsule PO (20:49)
[2019-10-02 22:51] LABS: Glucose Point of Care 209 mg/dL (70-110)
[2019-10-03] VITALS (22 sets, daily range): BP systolic 106–159; BP diastolic 60–76; PULSE 45–64; RESP 11–22; TEMP 36.4–37.2; O2SAT 91–100
[2019-10-03] MEDS: enoxaparin 40 mg/0.4 mL Syringe SUBCUT (01:37)
[2019-10-03] MEDS: piperacillin-tazobactam 3.375 GM in sodium chloride 0.9% (plus) 50 ML IV ×3 (01:37→17:55)
[2019-10-03] MEDS: ipratropium-albuterol 3 mL Neb INHALATION ×4 (03:19→20:55)
[2019-10-03 04:52] LABS: Basophils % 0.1 %; Eosinophils % 0.3 %; Hematocrit 29.7 % (37.0-47.0); Hemoglobin 8.9 g/dL (11.5-15.3); Lymphocytes # 0.6 10^3/uL (0.8-4.8); Lymphocytes % 6.6 %; Mean Corpuscular Hemoglobin 26.9 pg (28.0-34.0); Mean Corpuscular Volume 89.7 fL (81-99); Mean Platelet Volume 9.1 fL (7.4-10.4); Monocytes # 0.5 10^3/uL (0.2-0.9); Monocytes % 5.4 %; Neutrophils % 85.3 %; Nucleated Red Blood Cells % 0 %; Platelet Count 236 10^3/cmm (130-400); Red Blood Count 3.31 10^6/uL (4.1-5.3); Red Cell Distribution Width 15.6 % (12.1-15.1); White Blood Count 9.4 10^3/uL (4.0-10.0)
[2019-10-03 05:07] LABS: Alanine Aminotransferase 19 U/L (0-33); Albumin Level 3.5 g/dL (3.5-5.2); Alkaline Phosphatase 57 IU/L (35-105); Anion Gap 22.2 (5-19); Aspartate Amino Transferase 18 U/L (0-32); Blood Urea Nitrogen 47 mg/dL (8-23); Calcium 8.7 mg/dL (8.5-10.5); Carbon Dioxide 26 mmol/L (22-29); Chloride 91 mmol/L (98-107); Globulin 3.3 g/dL (1.3-4.6); Glomerular Filtration Rate 20.5 mL/min (90-130); Glucose 140 mg/dL (65-115); Magnesium 2.4 mg/dL (1.7-2.3); Potassium 4.2 mmol/L (3.5-5.1); Sodium 135 mmol/L (136-145); Total Bilirubin 0.5 mg/dL (0.15-1.2); Total Protein 6.8 g/dL (6.6-8.7)
[2019-10-03 05:11] LABS: Phosphorus 7.9 mg/dL (2.5-4.5)
[2019-10-03 05:19] LABS: Thyroid Stimulating Hormone 1.02 uIU/mL (0.27-4.20)
[2019-10-03 07:39] LABS: Glucose Point of Care 144 mg/dL (70-110)
--- NOTE | 2019-10-03 08:33 | PM.PN ---
Subjective Subjective: Interval history: feels better. wants catheters removed. excellent uop. no n/v/f/c/hawthorne/d Medications: Reviewed: Yes Medication Review Details: Current Medications Acetaminophen (Tylenol) 650 mg PO Q6H PRN PRN Reason: Mild/Mod Pain Or Temp >/= 101 Last Admin: 10/02/19 20:48 Dose: 650 mg Documented by: Albuterol/Ipratropium (Duoneb) 3 ml INHALATION Q4H [facility] Last Admin: 10/03/19 08:30 Dose: 3 ml Documented by: Amlodipine Besylate (Norvasc) 5 mg PO BID [facility] Last Admin: 10/02/19 17:05 Dose: 5 mg Documented by: Atropine Sulfate (Atropine Syr) 0.5 mg IVP PRN PRN PRN Reason: HEART RATE < 40/MIN Bumetanide (Bumex) 4 mg IV BID [facility] Last Admin: 10/02/19 17:06 Dose: 4 mg Documented by: Dextrose (D50w) 25 ml IVP ONCE PRN; Protocol PRN Reason: hypoglycemia protocol Dextrose (D50w) 50 ml IVP PRN PRN; Protocol PRN Reason: hypoglycemia protocol Enoxaparin Sodium (Lovenox) 40 mg SUBCUT Q24H [facility] Last Admin: 10/03/19 01:37 Dose: 40 mg Documented by: Ferrous Sulfate (Ferrous Sulfate) 300 mg PO QAM [facility] Last Admin: 10/03/19 05:57 Dose: 300 mg Documented by: Fluoxetine HCl (Prozac) 20 mg PO DAILY [facility] Last Admin: 10/02/19 08:15 Dose: 20 mg Documented by: Gabapentin (Neurontin) 300 mg PO BEDTIME [facility] Last Admin: 10/02/19 20:49 Dose: 300 mg Documented by: Glucagon (Glucagen) 1 mg IM ONCE PRN; Protocol PRN Reason: Adult Acute Hypoglycemia Prot. Guaifenesin (Mucinex) 1,200 mg PO BID [facility] Last Admin: 10/02/19 20:49 Dose: 1,200 mg Documented by: Dextrose (D5w) 500 mls @ 100 mls/hr IV ONCE PRN; Protocol PRN Reason: Adult Acute Hypoglycemia Prot Piperacillin Sod/Tazobactam (Sod 3.375 gm/ Sodium Chloride) 50 mls @ 12.5 mls/hr IV Q8H [facility]; Protocol Last Infusion: 10/03/19 05:35 Dose: Infused Documented by: Vancomycin HCl 1,500 mg/ (Sodium Chloride) 250 mls @ 166.667 mls/hr IV Q36H [facility]; Protocol Last Infusion: 10/02/19 04:30 Dose: Infused Documented by: Insulin Aspart (Novolog) 0 unit SUBCUT TIDWM [facility]; Protocol Last Admin: 10/03/19 07:37 Dose: Not Given Documented by: Isosorbide Mononitrate (Imdur) 60 mg PO BID [facility] Last Admin: 10/02/19 17:05 Dose: 60 mg Documented by: Magnesium Hydroxide (Milk Of Magnesia) 30 ml PO DAILY [facility] Last Admin: 10/02/19 08:25 Dose: Not Given Documented by: Metolazone (Zaroxolyn) 10 mg PO DAILY [facility] Last Admin: 10/02/19 08:16 Dose: 10 mg Documented by: Multivitamins Therapeutic (Multivitamin Tab) 1 tab PO DAILY [facility] Last Admin: 10/02/19 08:17 Dose: 1 tab Documented by: Ondansetron HCl (Zofran) 4 mg IVP Q8H PRN PRN Reason: vomiting, or N/V if npo Pantoprazole Sodium (Protonix) 40 mg PO DAILY [facility] Last Admin: 10/02/19 08:16 Dose: 40 mg Documented by: Prednisone (Prednisone) 60 mg PO DAILY [facility] Last Admin: 10/02/19 08:16 Dose: 60 mg Documented by: Senna (Senna Lax) 8.6 mg PO BID [facility] Last Admin: 10/02/19 17:20 Dose: Not Given Documented by: Sevelamer Carbonate (Renvela) 800 mg PO TIDWM [facility] Last Admin: 10/02/19 17:05 Dose: 800 mg Documented by: Vitals/I&O/Wt Last Vital Signs Temp 97.6 F 10/03/19 06:00 Pulse 49 L 10/03/19 06:00 Resp 17 10/03/19 06:00 BP 145/63 10/03/19 06:00 Pulse Ox 100 10/03/19 06:00 10/02/19 10/03/19 10/03/19 22:59 06:59 14:59 Intake Total 610 / 1060 260 / 1320 Output Total 2600 / 2600 850 / 3450 Balance -1990 / -1540 -590 / -2130 Weight last 48 hrs Weight 156.178 kg Weight 156.659 kg Physical Exam Narrative: EXAM NARRATIVE: obese lady in bed, swollen, NARD vs noted- hypertensive heent- nc/at, eomi, anicteric neck- supple lungs dull bases heart rrr, +ARRON abd soft, nt, nd, +BS ext b/l edema improving, rt femoral dialysis catheter skin- venous changes in legs, blue color to legs neuro- a,a, o x 3 pulses + b/l Urinary Catheter Management^: Daniel: Cath Placed During This Visit: yes Urethral Indwelling: Yes Reason for Continuing Indwelling Catheter: Accurate Measurement of Urinary Output in Critically Ill Patients Urinary Catheter Date of Insertion: 09/27/19 Urinary Catheter Time of Insertion: 00:05 Data : 10/03/19 04:22 10/03/19 04:22 A&P Additional A&P Information 1. Renal failure ROBBIE- presumed ATN. -cr stable and excellent uop off of dialysis -please remove femoral shiley catheter -dec bumex and zaroxlyn doses -monitor for renal recovery 2. Hyperkalemia. improved w/ dialysis 3. Multisystem organ failure given the recent admission with pneumonia and possible urinary tract infection, she's currently being treated for sources of infection with cultures sent and pending. Vanco and Zosyn on board -urine is purulent -check vanco troughs, keep under 19- PLEASE DO NOT REDOSE VANCO UNTIL LEVEL IS UNDER 19 4. Respiratory failure -extubated -cont to diurese 5. anemia- check iron studies likely ACD hgb stable 6. hyponatremia from ROBBIE and pulm process check tsh 7. repeat cxr - q pna vs pleural effusions 8. 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 high pth 197- repeat in 4 weeks -cont phos binder 9. htn- dec norvasc seen w/ RN Attestations Medical Necessity Statement*: robbie, pna, htn Time Spent in Patient Care: Greater than 35 minutes Coding Level of Care Code Acute Personal Banker for Chg Boo
[2019-10-03] MEDS: sevelamer 800 mg Tablet PO ×3 (09:00→17:57)
[2019-10-03] MEDS: bumetanide 0.25 mg/mL SDV 10 mL 2 MG IV ×2 (09:00→17:50)
[2019-10-03] MEDS: pantoprazole DR 40 mg Tablet PO (09:02)
[2019-10-03] MEDS: predniSONE 20 mg Tablet 60 MG PO (09:03)
[2019-10-03] MEDS: fluoxetine 20 mg Capsule PO (09:03)
[2019-10-03] MEDS: amlodipine 5 mg Tablet PO (09:03)
[2019-10-03] MEDS: sennosides 8.6 mg Tablet PO ×2 (09:04→17:56)
[2019-10-03] MEDS: guaiFENesin 600 mg Tablet 1200 MG PO ×2 (09:04→17:57)
[2019-10-03] MEDS: isosorbide mononitrate ER 30 mg Tablet 60 MG PO ×2 (09:04→17:56)
[2019-10-03] MEDS: metOLazone 5 MG Tablet PO (09:05)
[2019-10-03] MEDS: multivitamin therapeutic Tablet 1 TAB PO (09:05)
--- NOTE | 2019-10-03 11:03 | PC.NURSE ---
!045 Dr. Moore removed dialysis catheter. No issues. Site dressed and monitored for bleeding.
[2019-10-03 11:17] LABS: Glucose Point of Care 148 mg/dL (70-110)
--- NOTE | 2019-10-03 11:29 | PM.PN ---
Subjective Subjective: Interval history: AM labs noted, per nephrology, remove dialysis catheter as no further need for dialysis; had 2050 mL urine output overnight. Patient seen and examined, no acute overnight events reported, reports feeling well. Discussed moving to the floor for continued care which she is agreeable to. No complaints currently. Diuretics and antihypertensive doses decreased per nephrology. Medications: Reviewed: Yes Medication Review Details: Current Medications Generic Name Dose Route Start Last Admin Trade Name Freq PRN Reason Stop Dose Admin Acetaminophen 650 mg 09/27/19 02:14 10/02/19 20:48 Tylenol PO 650 mg Q6H PRN Administration Mild/Mod Pain Or Temp >/= 101 Albuterol/Ipratrop ium 3 ml 09/27/19 08:00 10/03/19 11:20 Duoneb INHALATION Not Given Q4H [facility] Amlodipine Besylat e 5 mg 10/03/19 09:00 10/03/19 09:03 Norvasc PO 5 mg DAILY [facility] Administration Bumetanide 2 mg 10/03/19 09:00 10/03/19 09:00 Bumex IV 2 mg BID [facility] Administration Enoxaparin Sodium 40 mg 09/30/19 02:00 10/03/19 01:37 Lovenox SUBCUT 40 mg Q24H [facility] Administration Ferrous Sulfate 300 mg 09/27/19 09:15 10/03/19 05:57 Ferrous Sulfate PO 300 mg QAM [facility] Administration Fluoxetine HCl 20 mg 09/27/19 09:00 10/03/19 09:03 Prozac PO 20 mg DAILY [facility] Administration Gabapentin 300 mg 09/27/19 21:00 10/02/19 20:49 Neurontin PO 300 mg BEDTIME [facility] Administration Guaifenesin 1,200 mg 10/02/19 21:00 10/03/19 09:04 Mucinex PO 1,200 mg BID [facility] Administration Piperacillin Sod/T azobactam 50 mls @ 12.5 mls /hr 09/27/19 03:00 10/03/19 09:05 Sod 3.375 gm/ So dium Chloride IV 12.5 mls/hr Q8H [facility] Administration Protocol As Directed Vancomycin HCl 1,5 00 mg/ 250 mls @ 166.667 mls/hr 10/02/19 00:00 10/02/19 04:30 Sodium Chloride IV Infused Q36H [facility] Infusion Protocol Insulin Aspart 0 unit 09/27/19 08:00 10/03/19 11:18 Novolog SUBCUT Not Given TIDWM [facility] Protocol Isosorbide Mononit rate 60 mg 09/27/19 09:00 10/03/19 09:04 Imdur PO 60 mg BID [facility] Administration Metolazone 5 mg 10/03/19 09:00 10/03/19 09:05 Zaroxolyn PO 5 mg DAILY [facility] Administration Multivitamins Ther apeutic 1 tab 09/27/19 09:00 10/03/19 09:05 Multivitamin Tab PO 1 tab DAILY [facility] Administration Pantoprazole Sodiu m 40 mg 09/27/19 09:00 10/03/19 09:02 Protonix PO 40 mg DAILY [facility] Administration Prednisone 60 mg 10/01/19 21:00 10/03/19 09:03 Prednisone PO 60 mg DAILY [facility] Administration Senna 8.6 mg 09/27/19 09:00 10/03/19 09:04 Senna Lax PO 8.6 mg BID [facility] Administration Sevelamer Carbonat e 800 mg 09/27/19 08:00 10/03/19 09:00 Renvela PO 800 mg TIDWM [facility] Administration Vitals/I&O/Wt Last Vital Signs Temp 98.9 F 10/03/19 08:00 Pulse 53 L 10/03/19 10:00 Resp 20 H 10/03/19 10:00 BP 106/68 10/03/19 10:00 Pulse Ox 91 10/03/19 10:00 10/02/19 10/03/19 10/03/19 22:59 06:59 14:59 Intake Total 610 / 1060 260 / 1320 480 / 480 Output Total 2600 / 2600 850 / 3450 Balance -1990 / -1540 -590 / -2130 480 / 480 Weight last 48 hrs Weight 156.178 kg Weight 156.659 kg Physical Exam Narrative: EXAM NARRATIVE: <del>-Propofol</del> <del>@</del> <del>45</del> <del>mcg/kg/min</del> <del>-tube</del> <del>feeds</del> <del>@</del> <del>20</del> <del>mL/hr</del> Const: COMMON NORMALS: no apparent distress, oriented x3 and alert GENERAL APPEARANCE: cooperative and comfortable NUTRITIONAL APPEARANCE: obese morbidly obese ORIENTATION/CONSCIOUSNESS: Yes other (Sedated) HENMT: COMMON NORMALS: normocephalic, head/scalp atraumatic, hearing grossly normal bilaterally and moist oral mucous membranes HEAD & SCALP: normocephalic and atraumatic OTHER: -ETT: 24 cm @ lip Eye: COMMON NORMALS: PERRL, EOMs intact bilaterally and conjunctivae normal CONJUNCTIVA: Yes conjunctivae normal PUPIL: Yes PERRL Neck/C-Spine: COMMON NORMALS: full ROM GENERAL: Yes trachea midline OTHER: short, thick neck Chest: OTHER: -Port-A-Cath in place on right, accessed Resp: COMMON NORMALS: no retractions and no use of accessory muscles EFFORT & INSPECTION: Yes symmetric chest movement and No tachypneic AUSCULTATION: rhonchi (Improving) throughout OTHER: -auscultation limited by body habitus -<del>on</del> <del>vent</del> <del>support;</del> <del>40%/450/10;</del> <del>breathing</del> <del>over</del> <del>vent</del> Cardio: COMMON NORMALS: regular rhythm, S1 normal heart sound, S2 normal heart sound and no murmurs RATE: bradycardic (intermittently) RHYTHM: regular rhythm HEART SOUNDS: S1 normal and S2 normal GI: COMMON NORMALS: normal to inspection, nondistended, normoactive bowel sounds, soft to palpation and non-tender INSPECTION: Yes anasarca present, Yes central obesity and Yes pannus present PALPATION: Yes soft : BLADDER/KIDNEY EXAM: Yes catheter in place Catheter type (Female): urethral OTHER: -femoral (R) tunneled catheter Extremity: COMMON NORMALS: normal to inspection and full ROM; negative for no pedal edema OTHER: -non-pitting edema on bilateral upper thighs and lower abdominal wall (improving) Neuro: COMMON NORMALS: oriented x3 and no focal motor deficits SENSORIUM/ORIENTATION: Yes alert OTHER: responsive to verbal and tactile stimulation Psych: COMMON NORMALS: mental status grossly normal, thought process normal, cooperative, affect normal and speech normal SPEECH: Yes normal speech THOUGHT PROCESS: normal thought process OTHER: sedated Skin: COMMON NORMALS: no jaundice, no petechiae and no mottling OTHER: -chronic venous stasis dermatitis on bilateral lower extremities -onychomycosis of bilateral toenails, worse on the R -R gluteal area with noted shearing, blanchable erythema on the rest of the sacral area -extensive intertrigo over multiple skin folds including axillary areas, pannus, inguinal areas Urinary Catheter Management^: Daniel: Cath Placed During This Visit: yes Urethral Indwelling: Yes Reason for Continuing Indwelling Catheter: Accurate Measurement of Urinary Output in Critically Ill Patients Urinary Catheter Date of Insertion: 09/27/19 Urinary Catheter Time of Insertion: 00:05 Data : 10/03/19 04:22 10/03/19 04:22 Micro: Microbiology 09/28/19 11:20 Blood Culture - Final Blood NO GROWTH AFTER 5 DAYS 09/28/19 11:01 Blood Culture - Final Blood NO GROWTH AFTER 5 DAYS A&P Assessment and plan (1) Acute on chronic respiratory failure with hypoxia and hypercapnia: -off vent support (5 days) -is oxygen dependent at baseline, 2 L, BiPAP qhs -BNP: 46,000; chronically elevated -CXR: noted LLL atelectasis vs. consolidation and patchy RLL infiltrates -on IV steroids, empiric antibiotics (on Vanc/Zosyn); s/p extubation, will switch to oral steroids -noted high vanc trough; on hold -ABG noted, normal pH, resolved hypoxia and hypercapnia -influenza B positive; on droplet precautions, completed Tamiflu (day 12/26) -blood cx: negative -sputum cx: mixed geoff Status: Acute Code(s): J96.21 - Acute and chronic respiratory failure with hypoxia; J96.22 - Acute and chronic respiratory failure with hypercapnia (2) Acute kidney injury: -ROBBIE on CKD stage 4; baseline Cr is around 2-3 -continue to monitor renal function -Nephrology consult appreciated -HD x 3 sessions; no HD today; has tunneled catheter (femoral) in place which will be removed today as no further HD needed -renally dose meds, avoid nephrotoxins -has Daniel catheter in place, continue to monitor urine output; good urine output overnight Status: Acute Code(s): N17.9 - Acute kidney failure, unspecified (3) Congestive heart failure: -Echo: EF=55%, no RWMA, G2DD, mild TR; clinically anasarcic -on IV diuresis with Bumex; positive fluid balance persists; decrease dose today per nephrology -off vent support -daily weights, monitor Is & Os -receiving HD intermittently Status: Acute Qualifiers: Heart failure chronicity: acute on chronic Heart failure type: diastolic Qualified Code(s): I50.33 - Acute on chronic diastolic (congestive) heart failure Code(s): I50.9 - Heart failure, unspecified (4) Acute hyperkalemia: -persistent hyperkalemia despite medical intervention responded to HD; K wnl -continue to monitor Status: Acute Code(s): E87.5 - Hyperkalemia Additional A&P Information -HTN; BP appropriate -Acute on chronic normocytic anemia; baseline Hg 7-8. Continue to monitor H/H. Has had GI w/u done before showing antral petechiae and colonoscopy showing diverticulosis; no active bleeding (12/2016). S/p 1 unit of PRBCs on 09/28; stable Hg -IDDM type II; A1c-5.5; continue accuchecks -Morbid obesity: BMI-56 kg/m2 -Chronic constipation; on bowel regimen -Peripheral vascular disease -Depression, anxiety -Bradycardia; chronic; Atropine PRN -UTI; on antibiotics; urine cx-mixed geoff -hx of R hydronephrosis s/p ureteral stent. Daniel catheter in place -continue meds as ordered -fall precautions; bed-bound at baseline -on diabetic diet -DVT ppx with heparin; H/H stable -Dispo: return to [facility] -Code status: FULL code -transfer to floor for continued care Attestations Medical Necessity Statement*: Patient requires hospitalization for continued management of acute kidney injury, IV diuresis, IV antibiotics. Time Spent in Patient Care: Greater than 35 minutes (>than 50% of time spent in counselling and/or direct pt care on unit). Coding Level of Care Code Acute [employer] Assistant for Amelia Haddad Exam Problem Focused Diagnoses Acute on chronic respiratory failure with hypoxia and hypercapnia J96.21; J96.22 Acute kidney injury N17.9 Congestive heart failure I50.33 Heart failure chronicity: acute on chronic Heart failure type: diastolic Acute hyperkalemia E87.5
[2019-10-03 12:38] LABS: Vancomycin Trough 29.8 ug/mL (10-15)
--- NOTE | 2019-10-03 15:40 | PC.SOCIAL ---
IMM Updated Page 2 of IMM updated and given to patient. Initialed, dated, and timed and placed back in chart.
--- NOTE | 2019-10-03 16:06 | PC.NURSE ---
Pt transferred to second floor at 1550. Report given to Nurse Robert. Cell phone and plant taxonomy teacher sent with pt. No further needs at this time.
[2019-10-03 18:09] LABS: Glucose Point of Care 222 mg/dL (70-110)
[2019-10-03 20:39] LABS: Glucose Point of Care 201 mg/dL (70-110)
[2019-10-03] MEDS: gabapentin 300 mg Capsule PO (21:18)
[2019-10-04] VITALS (23 sets, daily range): BP systolic 149–171; BP diastolic 65–74; PULSE 48–88; RESP 15–20; TEMP 36.4–37.2; O2SAT 93–100
[2019-10-04] MEDS: piperacillin-tazobactam 3.375 GM in sodium chloride 0.9% (plus) 50 ML IV ×3 (00:04→19:10)
[2019-10-04] MEDS: ipratropium-albuterol 3 mL Neb INHALATION ×7 (00:37→23:36)
[2019-10-04] MEDS: enoxaparin 40 mg/0.4 mL Syringe SUBCUT (02:35)
[2019-10-04 06:10] LABS: Basophils % 0.1 %; Eosinophils % 0.4 %; Hematocrit 28.6 % (37.0-47.0); Hemoglobin 8.5 g/dL (11.5-15.3); Lymphocytes # 0.8 10^3/uL (0.8-4.8); Mean Corpuscular HGB Conc 29.7 g/dL (30.0-36.0); Mean Corpuscular Hemoglobin 27.7 pg (28.0-34.0); Mean Corpuscular Volume 93.2 fL (81-99); Mean Platelet Volume 9.6 fL (7.4-10.4); Monocytes # 0.5 10^3/uL (0.2-0.9); Monocytes % 5.3 %; Neutrophils # 8.4 10^3/uL (1.8-7.7); Neutrophils % 84.4 %; Nucleated Red Blood Cells % 0 %; Platelet Count 229 10^3/cmm (130-400); Red Blood Count 3.07 10^6/uL (4.1-5.3); Red Cell Distribution Width 15.7 % (12.1-15.1); White Blood Count 9.9 10^3/uL (4.0-10.0)
[2019-10-04 06:40] LABS: Alanine Aminotransferase 21 U/L (0-33); Albumin Level 3.7 g/dL (3.5-5.2); Alkaline Phosphatase 50 IU/L (35-105); Anion Gap 21.2 (5-19); Aspartate Amino Transferase 14 U/L (0-32); Blood Urea Nitrogen 79 mg/dL (8-23); Calcium 8.4 mg/dL (8.5-10.5); Carbon Dioxide 25 mmol/L (22-29); Chloride 95 mmol/L (98-107); Globulin 3.4 g/dL (1.3-4.6); Glomerular Filtration Rate 17.9 mL/min (90-130); Glucose 140 mg/dL (65-115); Magnesium 2.5 mg/dL (1.7-2.3); Phosphorus 7.1 mg/dL (2.5-4.5); Potassium 4.2 mmol/L (3.5-5.1); Sodium 137 mmol/L (136-145); Total Bilirubin 0.3 mg/dL (0.15-1.2); Total Protein 7.1 g/dL (6.6-8.7); Vancomycin Random 23.2 ug/mL (20.0-40.0)
--- NOTE | 2019-10-04 06:48 | PM.PN ---
Subjective Subjective: Interval history: states she is feeling better. sleeps w/ CPAP. urinating well. no n/v/f/c/hawthorne/d/itching. Medications: Reviewed: Yes Medication Review Details: Current Medications Acetaminophen (Tylenol) 650 mg PO Q6H PRN PRN Reason: Mild/Mod Pain Or Temp >/= 101 Last Admin: 10/02/19 20:48 Dose: 650 mg Documented by: Albuterol/Ipratropium (Duoneb) 3 ml INHALATION Q4H [facility] Last Admin: 10/04/19 04:32 Dose: 3 ml Documented by: Amlodipine Besylate (Norvasc) 5 mg PO DAILY [facility] Last Admin: 10/03/19 09:03 Dose: 5 mg Documented by: Atropine Sulfate (Atropine Syr) 0.5 mg IVP PRN PRN PRN Reason: HEART RATE < 40/MIN Bumetanide (Bumex) 2 mg IV BID [facility] Last Admin: 10/03/19 17:50 Dose: 2 mg Documented by: Dextrose (D50w) 25 ml IVP ONCE PRN; Protocol PRN Reason: hypoglycemia protocol Dextrose (D50w) 50 ml IVP PRN PRN; Protocol PRN Reason: hypoglycemia protocol Enoxaparin Sodium (Lovenox) 40 mg SUBCUT Q24H [facility] Last Admin: 10/04/19 02:35 Dose: 40 mg Documented by: Ferrous Sulfate (Ferrous Sulfate) 300 mg PO QAM [facility] Last Admin: 10/04/19 06:37 Dose: 300 mg Documented by: Fluoxetine HCl (Prozac) 20 mg PO DAILY [facility] Last Admin: 10/03/19 09:03 Dose: 20 mg Documented by: Gabapentin (Neurontin) 300 mg PO BEDTIME [facility] Last Admin: 10/03/19 21:18 Dose: 300 mg Documented by: Glucagon (Glucagen) 1 mg IM ONCE PRN; Protocol PRN Reason: Adult Acute Hypoglycemia Prot. Guaifenesin (Mucinex) 1,200 mg PO BID [facility] Last Admin: 10/03/19 17:57 Dose: 1,200 mg Documented by: Dextrose (D5w) 500 mls @ 100 mls/hr IV ONCE PRN; Protocol PRN Reason: Adult Acute Hypoglycemia Prot Piperacillin Sod/Tazobactam (Sod 3.375 gm/ Sodium Chloride) 50 mls @ 12.5 mls/hr IV Q8H [facility]; Protocol Last Admin: 10/04/19 00:04 Dose: 12.5 mls/hr Documented by: Vancomycin HCl 1,500 mg/ (Sodium Chloride) 250 mls @ 166.667 mls/hr IV Q36H [facility]; Protocol Last Infusion: 10/02/19 04:30 Dose: Infused Documented by: Insulin Aspart (Novolog) 0 unit SUBCUT TIDWM [facility]; Protocol Last Admin: 10/03/19 18:42 Dose: 8 unit Documented by: Isosorbide Mononitrate (Imdur) 60 mg PO BID [facility] Last Admin: 10/03/19 17:56 Dose: 60 mg Documented by: Metolazone (Zaroxolyn) 5 mg PO DAILY [facility] Last Admin: 10/03/19 09:05 Dose: 5 mg Documented by: Multivitamins Therapeutic (Multivitamin Tab) 1 tab PO DAILY [facility] Last Admin: 10/03/19 09:05 Dose: 1 tab Documented by: Ondansetron HCl (Zofran) 4 mg IVP Q8H PRN PRN Reason: vomiting, or N/V if npo Pantoprazole Sodium (Protonix) 40 mg PO DAILY [facility] Last Admin: 10/03/19 09:02 Dose: 40 mg Documented by: Prednisone (Prednisone) 60 mg PO DAILY [facility] Last Admin: 10/03/19 09:03 Dose: 60 mg Documented by: Senna (Senna Lax) 8.6 mg PO BID [facility] Last Admin: 10/03/19 17:56 Dose: 8.6 mg Documented by: Sevelamer Carbonate (Renvela) 800 mg PO TIDWM [facility] Last Admin: 10/03/19 17:57 Dose: 800 mg Documented by: Vitals/I&O/Wt Last Vital Signs Temp 97.8 F 10/04/19 04:00 Pulse 50 L 10/04/19 04:40 Resp 19 H 10/04/19 04:40 BP 169/70 10/04/19 04:00 Pulse Ox 99 10/04/19 04:40 10/03/19 10/03/19 10/04/19 14:59 22:59 06:59 Intake Total 1010 / 1010 290 / 1300 Output Total 1000 / 1000 1300 / 2300 Balance 1010 / 1010 -710 / 300 -1300 / -1000 Weight last 48 hrs Weight 156.178 kg Physical Exam Narrative: EXAM NARRATIVE: obese lady in bed, swollen, NARD- uses cpap overnight vs noted- heent- nc/at, eomi, anicteric neck- supple lungs dull bases heart rrr, +ARRON abd soft, nt, nd, +BS ext b/l edema improving, rt femoral dialysis catheter skin- venous changes in legs, blue color to legs neuro- a,a, o x 3 pulses + b/l Urinary Catheter Management^: Daniel: Cath Placed During This Visit: yes Urethral Indwelling: Yes Reason for Continuing Indwelling Catheter: Accurate Measurement of Urinary Output in Critically Ill Patients Urinary Catheter Date of Insertion: 09/27/19 Urinary Catheter Time of Insertion: 00:05 Data : 10/04/19 05:20 10/04/19 05:20 Other Labs: Abnormal lab results 10/03/19 10/04/19 10/04/19 Range/Units 11:13 05:20 05:20 RBC 3.07 L (4.1-5.3) 10^6/uL Hgb 8.5 L (11.5-15.3) g/dL Hct 28.6 L (37.0-47.0) % MCH 27.7 L (28.0-34.0) pg MCHC 29.7 L (30.0-36.0) g/dL RDW 15.7 H (12.1-15.1) % Neut # (Auto) 8.4 H (1.8-7.7) 10^3/uL Chloride 95 L (98-107) mmol/L Anion Gap 21.2 H (5-19) BUN 79 H (8-23) mg/dL Creatinine 2.7 H (0.5-0.9) mg/dL GFR Calculation 17.9 L (90-130) mL/min Glucose 140 H (65-115) mg/dL Calcium 8.4 L (8.5-10.5) mg/dL Phosphorus 7.1 H (2.5-4.5) mg/dL Magnesium 2.5 H (1.7-2.3) mg/dL Vancomycin Trough 29.8 H* (10-15) ug/mL Micro: Microbiology 09/28/19 11:20 Blood Culture - Final Blood NO GROWTH AFTER 5 DAYS 09/28/19 11:01 Blood Culture - Final Blood NO GROWTH AFTER 5 DAYS Attestation for Other Data: I personally reviewed and interpreted the following: A&P Additional A&P Information 1. Renal failure ROBBIE- presumed ATN. -cr up a little from diuretics. -remains off of dialysis -change bumex to po -please remove femoral shiley catheter -monitor uop and chem 7 2. Hyperkalemia. improved w/ dialysis 3. Multisystem organ failure given the recent admission with pneumonia and possible urinary tract infection, she's currently being treated for sources of infection with cultures sent and pending. Vanco and Zosyn on board -urine is purulent -check vanco troughs, keep under 19- PLEASE DO NOT REDOSE VANCO UNTIL LEVEL IS UNDER 19 4. Respiratory failure -extubated -cont to diurese -cpap at night 5. anemia- check iron studies likely ACD hgb falling- give iv iron 6. hyponatremia from ROBBIE and pulm process check tsh -improving na 7. repeat cxr - q pna vs pleural effusions 8. 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 high pth 197- repeat in 4 weeks -cont phos binder- phos improving 9. htn- monitor on current meds. when cr stable, will consider adding a ARB, as she is diabetic seen w/ RN Attestations Medical Necessity Statement*: robbie, resp failure, infection, anemia Time Spent in Patient Care: 16 - 35 minutes Coding Level of Care Code Acute Porcelain Enamel Sprayer for Amelia Haddad
[2019-10-04 07:09] LABS: Glucose Point of Care 125 mg/dL (70-110)
[2019-10-04] MEDS: multivitamin therapeutic Tablet 1 TAB PO (09:17)
[2019-10-04] MEDS: predniSONE 20 mg Tablet 60 MG PO (09:17)
[2019-10-04] MEDS: sennosides 8.6 mg Tablet PO ×2 (09:17→19:09)
[2019-10-04] MEDS: isosorbide mononitrate ER 30 mg Tablet 60 MG PO ×2 (09:17→19:09)
[2019-10-04] MEDS: amlodipine 5 mg Tablet PO (09:17)
[2019-10-04] MEDS: fluoxetine 20 mg Capsule PO (09:18)
[2019-10-04] MEDS: pantoprazole DR 40 mg Tablet PO (09:18)
[2019-10-04] MEDS: metOLazone 5 MG Tablet 2.5 MG PO (09:18)
[2019-10-04] MEDS: guaiFENesin 600 mg Tablet 1200 MG PO ×2 (09:18→19:10)
[2019-10-04] MEDS: bumetanide 1 mg Tablet 2 MG PO ×2 (09:18→19:10)
[2019-10-04] MEDS: sevelamer 800 mg Tablet PO ×3 (10:16→19:26)
--- NOTE | 2019-10-04 10:23 | PM.PN ---
Subjective Subjective: Interval history: AM labs noted, noted impairment in renal function, switched to oral Bumex. Had 1300 mL urine output overnight. Started on IV iron replacement. Patient seen and examined, currently resting with BiPAP on, no complaints currently, no acute overnight events reported. Medications: Reviewed: Yes Medication Review Details: Current Medications Generic Name Dose Route Start Last Admin Trade Name Freq PRN Reason Stop Dose Admin Acetaminophen 650 mg 09/27/19 02:14 10/02/19 20:48 Tylenol PO 650 mg Q6H PRN Administration Mild/Mod Pain Or Temp >/= 101 Albuterol/Ipratrop ium 3 ml 09/27/19 08:00 10/04/19 08:46 Duoneb INHALATION 3 ml Q4H [facility] Administration Amlodipine Besylat e 5 mg 10/03/19 09:00 10/03/19 09:03 Norvasc PO 5 mg DAILY M[facility] Administration Enoxaparin Sodium 40 mg 09/30/19 02:00 10/04/19 02:35 Lovenox SUBCUT 40 mg Q24H [facility] Administration Fluoxetine HCl 20 mg 09/27/19 09:00 10/03/19 09:03 Prozac PO 20 mg DAILY [facility] Administration Gabapentin 300 mg 09/27/19 21:00 10/03/19 21:18 Neurontin PO 300 mg BEDTIME M[facility]INE Administration Guaifenesin 1,200 mg 10/02/19 21:00 10/03/19 17:57 Mucinex PO 1,200 mg BID [facility] Administration Piperacillin Sod/T azobactam 50 mls @ 12.5 mls /hr 09/27/19 03:00 10/04/19 00:04 Sod 3.375 gm/ So dium Chloride IV 12.5 mls/hr Q8H [facility] Administration Protocol As Directed Vancomycin HCl 1,5 00 mg/ 250 mls @ 166.667 mls/hr 10/02/19 00:00 10/02/19 04:30 Sodium Chloride IV Infused Q36H [facility] Infusion Protocol Insulin Aspart 0 unit 09/27/19 08:00 10/04/19 07:40 Novolog SUBCUT Not Given TIDWM [facility] Protocol Isosorbide Mononit rate 60 mg 09/27/19 09:00 10/03/19 17:56 Imdur PO 60 mg BID [facility] Administration Multivitamins Ther apeutic 1 tab 09/27/19 09:00 10/03/19 09:05 Multivitamin Tab PO 1 tab DAILY [facility] Administration Pantoprazole Sodiu m 40 mg 09/27/19 09:00 10/03/19 09:02 Protonix PO 40 mg DAILY [facility] Administration Prednisone 60 mg 10/01/19 21:00 10/03/19 09:03 Prednisone PO 60 mg DAILY [facility] Administration Senna 8.6 mg 09/27/19 09:00 10/03/19 17:56 Senna Lax PO 8.6 mg BID [facility] Administration Sevelamer Carbonat e 800 mg 09/27/19 08:00 10/03/19 17:57 Renvela PO 800 mg TIDWM [facility] Administration Vitals/I&O/Wt Last Vital Signs Temp 97.5 F L 10/04/19 08:00 Pulse 65 10/04/19 08:53 Resp 16 10/04/19 08:40 BP 159/70 10/04/19 08:00 Pulse Ox 95 10/04/19 08:40 10/03/19 10/04/19 10/04/19 22:59 06:59 14:59 Intake Total 290 / 1300 240 / 240 Output Total 1000 / 1000 1300 / 2300 Balance -710 / 300 -1300 / -1000 240 / 240 Weight last 48 hrs Weight 156.178 kg Physical Exam Narrative: EXAM NARRATIVE: <del>-Propofol</del> <del>@</del> <del>45</del> <del>mcg/kg/min</del> <del>-tube</del> <del>feeds</del> <del>@</del> <del>20</del> <del>mL/hr</del> Const: COMMON NORMALS: no apparent distress, oriented x3 and alert GENERAL APPEARANCE: cooperative and comfortable NUTRITIONAL APPEARANCE: obese morbidly obese HENMT: COMMON NORMALS: normocephalic, head/scalp atraumatic, hearing grossly normal bilaterally and moist oral mucous membranes HEAD & SCALP: normocephalic and atraumatic OTHER: -ETT: 24 cm @ lip Eye: COMMON NORMALS: PERRL, EOMs intact bilaterally and conjunctivae normal CONJUNCTIVA: Yes conjunctivae normal PUPIL: Yes PERRL Neck/C-Spine: COMMON NORMALS: full ROM GENERAL: Yes trachea midline OTHER: short, thick neck Chest: OTHER: -Port-A-Cath in place on right, accessed Resp: COMMON NORMALS: no retractions and no use of accessory muscles EFFORT & INSPECTION: Yes symmetric chest movement and No tachypneic AUSCULTATION: crackles and diminished lung sounds bilateral OTHER: -auscultation limited by body habitus -on BiPAP Cardio: COMMON NORMALS: regular rhythm, S1 normal heart sound, S2 normal heart sound and no murmurs RATE: bradycardic (intermittently) RHYTHM: regular rhythm HEART SOUNDS: S1 normal and S2 normal GI: COMMON NORMALS: normal to inspection, nondistended, normoactive bowel sounds, soft to palpation and non-tender INSPECTION: Yes anasarca present, Yes central obesity and Yes pannus present PALPATION: Yes soft : BLADDER/KIDNEY EXAM: Yes catheter in place Catheter type (Female): urethral OTHER: -femoral (R) tunneled catheter Extremity: COMMON NORMALS: normal to inspection and full ROM; negative for no pedal edema OTHER: -non-pitting edema on bilateral upper thighs and lower abdominal wall (improving) Neuro: COMMON NORMALS: oriented x3 and no focal motor deficits SENSORIUM/ORIENTATION: Yes alert OTHER: responsive to verbal and tactile stimulation Psych: COMMON NORMALS: mental status grossly normal, thought process normal, cooperative, affect normal and speech normal SPEECH: Yes normal speech THOUGHT PROCESS: normal thought process OTHER: sedated Skin: COMMON NORMALS: no jaundice, no petechiae and no mottling OTHER: -chronic venous stasis dermatitis on bilateral lower extremities -onychomycosis of bilateral toenails, worse on the R -R gluteal area with noted shearing, blanchable erythema on the rest of the sacral area -extensive intertrigo over multiple skin folds including axillary areas, pannus, inguinal areas Urinary Catheter Management^: Daniel: Cath Placed During This Visit: yes Urethral Indwelling: Yes Reason for Continuing Indwelling Catheter: Accurate Measurement of Urinary Output in Critically Ill Patients Urinary Catheter Date of Insertion: 09/27/19 Urinary Catheter Time of Insertion: 00:05 Data : 10/04/19 05:20 10/04/19 05:20 Micro: Microbiology 09/28/19 11:20 Blood Culture - Final Blood NO GROWTH AFTER 5 DAYS 09/28/19 11:01 Blood Culture - Final Blood NO GROWTH AFTER 5 DAYS A&P Assessment and plan (1) Acute on chronic respiratory failure with hypoxia and hypercapnia: -off vent support (5 days) -is oxygen dependent at baseline, 2 L, BiPAP qhs -BNP: 46,000; chronically elevated -CXR: noted LLL atelectasis vs. consolidation and patchy RLL infiltrates -on IV steroids, empiric antibiotics (on Vanc/Zosyn); s/p extubation, will switch to oral steroids -noted high vanc trough; on hold -ABG noted, normal pH, resolved hypoxia and hypercapnia -influenza B positive; off droplet precautions, completed Tamiflu (day 12/26) -blood cx: negative -sputum cx: mixed geoff Status: Acute Code(s): J96.21 - Acute and chronic respiratory failure with hypoxia; J96.22 - Acute and chronic respiratory failure with hypercapnia (2) Acute kidney injury: -ROBBIE on CKD stage 4; baseline Cr is around 2-3 -continue to monitor renal function -Nephrology consult appreciated -HD x 3 sessions; no HD today; has tunneled catheter (femoral) in place which will be removed today as no further HD needed -renally dose meds, avoid nephrotoxins -has Daniel catheter in place, continue to monitor urine output; good urine output overnight Status: Acute Code(s): N17.9 - Acute kidney failure, unspecified (3) Congestive heart failure: -Echo: EF=55%, no RWMA, G2DD, mild TR; clinically anasarcic -on diuresis with oral Bumex; positive fluid balance persists -off vent support -daily weights, monitor Is & Os -no longer requiring HD intermittently Status: Acute Qualifiers: Heart failure chronicity: acute on chronic Heart failure type: diastolic Qualified Code(s): I50.33 - Acute on chronic diastolic (congestive) heart failure Code(s): I50.9 - Heart failure, unspecified (4) Acute hyperkalemia: -persistent hyperkalemia despite medical intervention responded to HD; K wnl -continue to monitor Status: Acute Code(s): E87.5 - Hyperkalemia Additional A&P Information -HTN; BP appropriate -Acute on chronic normocytic anemia; baseline Hg 7-8. Continue to monitor H/H. Has had GI w/u done before showing antral petechiae and colonoscopy showing diverticulosis; no active bleeding (12/2016). S/p 1 unit of PRBCs on 09/28; stable Hg. IV iron replacement started -IDDM type II; A1c-5.5; continue accuchecks -Morbid obesity: BMI-56 kg/m2 -Chronic constipation; on bowel regimen -Peripheral vascular disease -Depression, anxiety -Bradycardia; chronic; Atropine PRN -UTI; on antibiotics; urine cx-mixed geoff -hx of R hydronephrosis s/p ureteral stent. Daniel catheter in place; assess daily for removal -continue meds as ordered -fall precautions; bed-bound at baseline -on diabetic diet -DVT ppx with heparin; H/H stable -Dispo: return to [facility] -Code status: FULL code Attestations Medical Necessity Statement*: Patient requires hospitalization for continued management of acute kidney injury, needs continued monitoring of renal function Time Spent in Patient Care: Greater than 35 minutes (>than 50% of time spent in counselling and/or direct pt care on unit). Coding Level of Care Code Acute Senior Technical Support Analyst for [facility] Exam Problem Focused Diagnoses Acute on chronic respiratory failure with hypoxia and hypercapnia J96.21; J96.22 Acute kidney injury N17.9 Congestive heart failure I50.33 Heart failure chronicity: acute on chronic Heart failure type: diastolic Acute hyperkalemia E87.5
[2019-10-04 12:02] LABS: Glucose Point of Care 175 mg/dL (70-110)
[2019-10-04 17:24] LABS: Glucose Point of Care 234 mg/dL (70-110)
[2019-10-04] MEDS: vancomycin 1,000 MG in sodium chloride 0.9% 250 ML 166.7 MG IV (19:11)
[2019-10-04] MEDS: acetaminophen 325 mg Tablet 650 MG PO (19:25)
[2019-10-04] MEDS: gabapentin 300 mg Capsule PO (20:29)
[2019-10-04 21:18] LABS: Glucose Point of Care 278 mg/dL (70-110)
[2019-10-05] VITALS (19 sets, daily range): BP systolic 157–175; BP diastolic 64–80; PULSE 52–72; RESP 17–22; TEMP 36.5–36.8; O2SAT 92–100
[2019-10-05] MEDS: piperacillin-tazobactam 3.375 GM in sodium chloride 0.9% (plus) 50 ML IV ×2 (01:09→08:39)
[2019-10-05] MEDS: enoxaparin 40 mg/0.4 mL Syringe SUBCUT (01:09)
[2019-10-05 06:29] LABS: Basophils % 0.1 %; Eosinophils % 0.4 %; Hematocrit 28.3 % (37.0-47.0); Hemoglobin 8.5 g/dL (11.5-15.3); Lymphocytes # 0.8 10^3/uL (0.8-4.8); Lymphocytes % 7.4 %; Mean Corpuscular Hemoglobin 27.2 pg (28.0-34.0); Mean Corpuscular Volume 90.7 fL (81-99); Mean Platelet Volume 9.5 fL (7.4-10.4); Monocytes # 0.5 10^3/uL (0.2-0.9); Neutrophils # 8.7 10^3/uL (1.8-7.7); Neutrophils % 85.6 %; Nucleated Red Blood Cells % 0 %; Platelet Count 224 10^3/cmm (130-400); Red Blood Count 3.12 10^6/uL (4.1-5.3); Red Cell Distribution Width 15.8 % (12.1-15.1); White Blood Count 10.2 10^3/uL (4.0-10.0)
[2019-10-05 06:42] LABS: Alanine Aminotransferase 19 U/L (0-33); Albumin Level 3.8 g/dL (3.5-5.2); Alkaline Phosphatase 49 IU/L (35-105); Anion Gap 20.3 (5-19); Aspartate Amino Transferase 9 U/L (0-32); Calcium 8.6 mg/dL (8.5-10.5); Carbon Dioxide 25 mmol/L (22-29); Chloride 94 mmol/L (98-107); Globulin 3.1 g/dL (1.3-4.6); Glomerular Filtration Rate 17.9 mL/min (90-130); Glucose 133 mg/dL (65-115); Magnesium 2.5 mg/dL (1.7-2.3); Phosphorus 6.8 mg/dL (2.5-4.5); Potassium 4.3 mmol/L (3.5-5.1); Sodium 135 mmol/L (136-145); Total Bilirubin 0.3 mg/dL (0.15-1.2); Total Protein 6.9 g/dL (6.6-8.7)
[2019-10-05 07:03] LABS: Blood Urea Nitrogen 88 mg/dL (8-23)
[2019-10-05 07:22] LABS: Glucose Point of Care 144 mg/dL (70-110)
--- NOTE | 2019-10-05 07:39 | P.PN_ITS ---
Subjective Subjective: Interval history: feels better. still w/ some mucus. no n/v/f/c/haw[place]/d/ithcing. Medications: Medication Review Details: Current Medications Acetaminophen (Tylenol) 650 mg PO Q6H PRN PRN Reason: Mild/Mod Pain Or Temp >/= 101 Last Admin: 10/04/19 19:25 Dose: 650 mg Documented by: Albuterol/Ipratropium (Duoneb) 3 ml INHALATION Q4H [facility] Last Admin: 10/04/19 23:36 Dose: 3 ml Documented by: Amlodipine Besylate (Norvasc) 5 mg PO DAILY [facility] Last Admin: 10/04/19 09:17 Dose: 5 mg Documented by: Atropine Sulfate (Atropine Syr) 0.5 mg IVP PRN PRN PRN Reason: HEART RATE < 40/MIN Bumetanide (Bumex) 2 mg PO BID [facility] Last Admin: 10/04/19 19:10 Dose: 2 mg Documented by: Dextrose (D50w) 25 ml IVP ONCE PRN; Protocol PRN Reason: hypoglycemia protocol Dextrose (D50w) 50 ml IVP PRN PRN; Protocol PRN Reason: hypoglycemia protocol Enoxaparin Sodium (Lovenox) 40 mg SUBCUT Q24H [facility] Last Admin: 10/05/19 01:09 Dose: 40 mg Documented by: Fluoxetine HCl (Prozac) 20 mg PO DAILY [facility] Last Admin: 10/04/19 09:18 Dose: 20 mg Documented by: Gabapentin (Neurontin) 300 mg PO BEDTIME [facility] Last Admin: 10/04/19 20:29 Dose: 300 mg Documented by: Glucagon (Glucagen) 1 mg IM ONCE PRN; Protocol PRN Reason: Adult Acute Hypoglycemia Prot. Guaifenesin (Mucinex) 1,200 mg PO BID [facility] Last Admin: 10/04/19 19:10 Dose: 1,200 mg Documented by: Dextrose (D5w) 500 mls @ 100 mls/hr IV ONCE PRN; Protocol PRN Reason: Adult Acute Hypoglycemia Prot Piperacillin Sod/Tazobactam (Sod 3.375 gm/ Sodium Chloride) 50 mls @ 12.5 mls/hr IV Q8H [facility]; Protocol Last Admin: 10/05/19 01:09 Dose: 12.5 mls/hr Documented by: Ferric Sodium Gluconate 125 mg (/ Sodium Chloride) 110 mls @ 110 mls/hr IV Q24H [facility] Stop: 10/11/19 09:59 Last Admin: 10/04/19 10:15 Dose: 110 mls/hr Documented by: Vancomycin HCl 1,000 mg/ (Sodium Chloride) 250 mls @ 166.667 mls/hr IV Q36H [facility]; Protocol Last Admin: 10/04/19 19:11 Dose: 166.7 mls/hr Documented by: Insulin Aspart (Novolog) 0 unit SUBCUT TIDWM [facility]; Protocol Last Admin: 10/04/19 19:12 Dose: 8 unit Documented by: Isosorbide Mononitrate (Imdur) 60 mg PO BID [facility] Last Admin: 10/04/19 19:09 Dose: 60 mg Documented by: Metolazone (Zaroxolyn) 2.5 mg PO DAILY [facility] Last Admin: 10/04/19 09:18 Dose: 2.5 mg Documented by: Multivitamins Therapeutic (Multivitamin Tab) 1 tab PO DAILY [facility] Last Admin: 10/04/19 09:17 Dose: 1 tab Documented by: Ondansetron HCl (Zofran) 4 mg IVP Q8H PRN PRN Reason: vomiting, or N/V if npo Pantoprazole Sodium (Protonix) 40 mg PO DAILY [facility] Last Admin: 10/04/19 09:18 Dose: 40 mg Documented by: Prednisone (Prednisone) 60 mg PO DAILY [facility] Last Admin: 10/04/19 09:17 Dose: 60 mg Documented by: Senna (Senna Lax) 8.6 mg PO BID [facility] Last Admin: 10/04/19 19:09 Dose: 8.6 mg Documented by: Sevelamer Carbonate (Renvela) 800 mg PO TIDWM [facility] Last Admin: 10/04/19 19:26 Dose: 800 mg Documented by: Vitals/I&O/Wt Last Vital Signs Temp 97.9 F 10/05/19 04:00 Pulse 58 L 10/05/19 05:56 Resp 20 H 10/05/19 05:56 BP 162/72 10/05/19 04:00 Pulse Ox 100 10/05/19 05:56 10/04/19 10/05/19 10/05/19 22:59 06:59 14:59 Intake Total 600 / 1130 50 / 1180 Output Total 1720 / 1720 460 / 2180 Balance -1120 / -590 -410 / -1000 Weight last 48 hrs Weight 156.603 kg Physical Exam Narrative: EXAM NARRATIVE: obese lady in bed, comfortable, NARD on nc o2 vs noted- heent- nc/at, eomi, anicteric neck- supple lungs -b/l crackles heart rrr, +ARRON abd soft, nt, nd, +BS ext b/l edema improving, skin- venous changes in legs, blue color to legs neuro- a,a, o x 3 pulses + b/l Urinary Catheter Management^: Burt: Cath Placed During This Visit: yes Urethral Indwelling: Yes Reason for Continuing Indwelling Catheter: Accurate Measurement of Urinary Output in Critically Ill Patients Urinary Catheter Date of Insertion: 09/27/19 Urinary Catheter Time of Insertion: 00:05 Data : 10/05/19 06:15 10/05/19 06:15 A&P Additional A&P Information 1. Renal failure ROBBIE- presumed ATN. -cr stable- cont lower dose diuretics -remains off of dialysis -please remove burt catheter -monitor uop and chem 7 -pt has ckd stage 4- cr over 2 for last 6 + months 2. Hyperkalemia. improved w/ dialysis 3. Multisystem organ failure given the recent admission with pneumonia and possible urinary tract infection, she's currently being treated for sources of infection with cultures sent and pending. Vanco and Zosyn on board -influenzae b as per hospitalist -check vanco troughs, keep under 19- PLEASE DO NOT REDOSE VANCO UNTIL LEVEL IS UNDER 19 4. anemia- low ferritin for infection and CKD likely ACD hgb falling- give iv iron 5. hyponatremia from ROBBIE and pulm process check tsh -improving na 6. 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 high pth 197- repeat in 4 weeks -cont phos binder- phos improving 9. htn- monitor on current meds. when cr stable, will consider adding a ARB, as she is diabetic 7. bipap at night 8. consider PT to have pt ambulate seen w/ RN Attestations Medical Necessity Statement*: per hospitalist Time Spent in Patient Care: 16 - 35 minutes Coding Level of Care Code Acute Pharmacist [facility]
[2019-10-05] MEDS: ipratropium-albuterol 3 mL Neb INHALATION ×4 (07:49→19:29)
[2019-10-05] MEDS: multivitamin therapeutic Tablet 1 TAB PO (08:42)
[2019-10-05] MEDS: amlodipine 5 mg Tablet PO (08:43)
[2019-10-05] MEDS: isosorbide mononitrate ER 30 mg Tablet 60 MG PO ×2 (08:43→18:13)
[2019-10-05] MEDS: sennosides 8.6 mg Tablet PO ×2 (08:43→18:13)
[2019-10-05] MEDS: pantoprazole DR 40 mg Tablet PO (08:43)
[2019-10-05] MEDS: bumetanide 1 mg Tablet 2 MG PO ×2 (08:43→18:13)
[2019-10-05] MEDS: fluoxetine 20 mg Capsule PO (08:43)
[2019-10-05] MEDS: guaiFENesin 600 mg Tablet 1200 MG PO ×2 (08:44→18:13)
[2019-10-05] MEDS: sevelamer 800 mg Tablet PO ×3 (08:44→18:20)
[2019-10-05] MEDS: predniSONE 20 mg Tablet 60 MG PO (08:59)
[2019-10-05] MEDS: acetaminophen 325 mg Tablet 650 MG PO (08:59)
--- NOTE | 2019-10-05 10:05 | PM.PN ---
Subjective Subjective: Interval history: AM labs noted, stable Cr. Had 2180 mL urine output overnight, will d/c Fredy. Patient seen and examined earlier this morning, is in good spirits no concerns at that her glasses have been misplaced and she has noticed that she is losing her hair. Medications: Reviewed: Yes Medication Review Details: Current Medications Generic Name Dose Route Start Last Admin Trade Name Freq PRN Reason Stop Dose Admin Acetaminophen 650 mg 09/27/19 02:14 10/05/19 08:59 Tylenol PO 650 mg Q6H PRN Administration Mild/Mod Pain Or Temp >/= 101 Albuterol/Ipratrop ium 3 ml 09/27/19 08:00 10/05/19 07:49 Duoneb INHALATION 3 ml Q4H [facility] Administration Amlodipine Besylat e 5 mg 10/03/19 09:00 10/05/19 08:43 Norvasc PO 5 mg DAILY [facility] Administration Bumetanide 2 mg 10/04/19 09:00 10/05/19 08:43 Bumex PO 2 mg BID [facility] Administration Enoxaparin Sodium 40 mg 09/30/19 02:00 10/05/19 01:09 Lovenox SUBCUT 40 mg Q24H [facility] Administration Fluoxetine HCl 20 mg 09/27/19 09:00 10/05/19 08:43 Prozac PO 20 mg DAILY [facility] Administration Gabapentin 300 mg 09/27/19 21:00 10/04/19 20:29 Neurontin PO 300 mg BEDTIME [facility] Administration Guaifenesin 1,200 mg 10/02/19 21:00 10/05/19 08:44 Mucinex PO 1,200 mg BID [facility] Administration Piperacillin Sod/T azobactam 50 mls @ 12.5 mls /hr 09/27/19 03:00 10/05/19 08:39 Sod 3.375 gm/ So dium Chloride IV 12.5 mls/hr Q8H [facility] Administration Protocol As Directed Ferric Sodium Gluc french 125 mg 110 mls @ 110 mls /hr 10/04/19 09:00 10/04/19 10:15 / Sodium Chlorid e IV 10/11/19 09:59 110 mls/hr Q24H [facility] Administration Vancomycin HCl 1,0 00 mg/ 250 mls @ 166.667 mls/hr 10/04/19 17:00 10/04/19 19:11 Sodium Chloride IV 166.7 mls/hr Q36H [facility] Administration Protocol Insulin Aspart 0 unit 09/27/19 08:00 10/05/19 08:38 Novolog SUBCUT 4 unit TIDWM [facility] Administration Protocol Isosorbide Mononit rate 60 mg 09/27/19 09:00 10/05/19 08:43 Imdur PO 60 mg BID [facility] Administration Multivitamins Ther apeutic 1 tab 09/27/19 09:00 10/05/19 08:42 Multivitamin Tab PO 1 tab DAILY [facility] Administration Pantoprazole Sodiu m 40 mg 09/27/19 09:00 10/05/19 08:43 Protonix PO 40 mg DAILY [facility] Administration Prednisone 60 mg 10/01/19 21:00 10/05/19 08:59 Prednisone PO 60 mg DAILY [facility] Administration Senna 8.6 mg 09/27/19 09:00 10/05/19 08:43 Senna Lax PO 8.6 mg BID [facility]INE Administration Sevelamer Carbonat e 800 mg 09/27/19 08:00 10/05/19 08:44 Renvela PO 800 mg TIDWM [facility]INE Administration Vitals/I&O/Wt Last Vital Signs Temp 98.0 F 10/05/19 07:39 Pulse 63 10/05/19 08:00 Resp 18 10/05/19 08:00 BP 175/80 10/05/19 07:39 Pulse Ox 100 10/05/19 08:00 10/04/19 10/05/19 10/05/19 22:59 06:59 14:59 Intake Total 600 / 1130 100 / 1230 240 / 240 Output Total 1720 / 1720 460 / 2180 Balance -1120 / -590 -360 / -950 240 / 240 Weight last 48 hrs Weight 156.603 kg Physical Exam Narrative: EXAM NARRATIVE: <del>-Propofol</del> <del>@</del> <del>45</del> <del>mcg/kg/min</del> <del>-tube</del> <del>feeds</del> <del>@</del> <del>20</del> <del>mL/hr</del> Const: COMMON NORMALS: no apparent distress, oriented x3 and alert GENERAL APPEARANCE: cooperative and comfortable NUTRITIONAL APPEARANCE: obese morbidly obese ORIENTATION/CONSCIOUSNESS: Yes other (Sedated) HENMT: COMMON NORMALS: normocephalic, head/scalp atraumatic, hearing grossly normal bilaterally and moist oral mucous membranes HEAD & SCALP: normocephalic and atraumatic OTHER: <del>-ETT:</del> <del>24</del> <del>cm</del> <del>@</del> <del>lip</del> Eye: COMMON NORMALS: PERRL, EOMs intact bilaterally and conjunctivae normal CONJUNCTIVA: Yes conjunctivae normal PUPIL: Yes PERRL Neck/C-Spine: COMMON NORMALS: full ROM GENERAL: Yes trachea midline OTHER: short, thick neck Chest: OTHER: -Port-A-Cath in place on right, accessed Resp: COMMON NORMALS: no retractions and no use of accessory muscles EFFORT & INSPECTION: Yes symmetric chest movement and No tachypneic AUSCULTATION: crackles and diminished lung sounds bilateral OTHER: -auscultation limited by body habitus -on NC Cardio: COMMON NORMALS: regular rhythm, S1 normal heart sound, S2 normal heart sound and no murmurs RATE: bradycardic (intermittently) RHYTHM: regular rhythm HEART SOUNDS: S1 normal and S2 normal GI: COMMON NORMALS: normal to inspection, nondistended, normoactive bowel sounds, soft to palpation and non-tender INSPECTION: Yes anasarca present, Yes central obesity and Yes pannus present PALPATION: Yes soft : BLADDER/KIDNEY EXAM: Yes catheter in place Catheter type (Female): urethral OTHER: <del>-femoral</del> <del>(R)</del> <del>tunneled</del> <del>catheter</del> Extremity: COMMON NORMALS: normal to inspection and full ROM; negative for no pedal edema OTHER: -non-pitting edema on bilateral upper thighs and lower abdominal wall (improving) Neuro: COMMON NORMALS: oriented x3 and no focal motor deficits SENSORIUM/ORIENTATION: Yes alert Psych: COMMON NORMALS: mental status grossly normal, thought process normal, cooperative, affect normal and speech normal SPEECH: Yes normal speech THOUGHT PROCESS: normal thought process Skin: COMMON NORMALS: no jaundice, no petechiae and no mottling OTHER: -chronic venous stasis dermatitis on bilateral lower extremities -onychomycosis of bilateral toenails, worse on the R -R gluteal area with noted shearing, blanchable erythema on the rest of the sacral area -extensive intertrigo over multiple skin folds including axillary areas, pannus, inguinal areas Urinary Catheter Management^: Daniel: Cath Placed During This Visit: yes Urethral Indwelling: Yes Reason for Continuing Indwelling Catheter: Accurate Measurement of Urinary Output in Critically Ill Patients Urinary Catheter Date of Insertion: 09/27/19 Urinary Catheter Time of Insertion: 00:05 Data : 10/05/19 06:15 10/05/19 06:15 A&P Assessment and plan (1) Acute on chronic respiratory failure with hypoxia and hypercapnia: -off vent support (5 days) -is oxygen dependent at baseline, 2 L, BiPAP qhs -BNP: 46,000; chronically elevated -CXR: noted LLL atelectasis vs. consolidation and patchy RLL infiltrates -on IV steroids, empiric antibiotics; s/p extubation, d/c oral steroids. Will d/c IV antibiotics and start on Augmentin (no need for dose adjustment as CrCl-54) to complete 7 day course -noted high vanc trough; on hold -ABG noted, normal pH, resolved hypoxia and hypercapnia -influenza B positive; off droplet precautions, completed Tamiflu (day 12/26) -blood cx: negative -sputum cx: mixed geoff Status: Acute Code(s): J96.21 - Acute and chronic respiratory failure with hypoxia; J96.22 - Acute and chronic respiratory failure with hypercapnia (2) Acute kidney injury: -ROBBIE on CKD stage 4; baseline Cr is around 2-3 -continue to monitor renal function; currently at baseline -Nephrology consult appreciated -HD x 3 sessions; no HD today; has tunneled catheter (femoral) in place which will be removed today as no further HD needed -renally dose meds, avoid nephrotoxins -has Daniel catheter in place, continue to monitor urine output; good urine output overnight; d/c Daniel today Status: Acute Code(s): N17.9 - Acute kidney failure, unspecified (3) Congestive heart failure: -Echo: EF=55%, no RWMA, G2DD, mild TR; clinically anasarcic -on diuresis with oral Bumex; positive fluid balance persists -off vent support -daily weights, monitor Is & Os -no longer requiring HD intermittently Status: Acute Qualifiers: Heart failure chronicity: acute on chronic Heart failure type: diastolic Qualified Code(s): I50.33 - Acute on chronic diastolic (congestive) heart failure Code(s): I50.9 - Heart failure, unspecified (4) Acute hyperkalemia: -persistent hyperkalemia despite medical intervention responded to HD; K wnl -continue to monitor Status: Acute Code(s): E87.5 - Hyperkalemia Additional A&P Information -HTN; BP appropriate -Acute on chronic normocytic anemia; baseline Hg 7-8. Continue to monitor H/H. Has had GI w/u done before showing antral petechiae and colonoscopy showing diverticulosis; no active bleeding (12/2016). S/p 1 unit of PRBCs on 09/28; stable Hg. IV iron replacement ongoing -IDDM type II; A1c-5.5; continue accuchecks -Morbid obesity: BMI-56 kg/m2 -Chronic constipation; on bowel regimen; having BMs -Peripheral vascular disease -Depression, anxiety -Bradycardia; chronic; Atropine PRN; none needed -UTI; on antibiotics; urine cx-mixed geoff -hx of R hydronephrosis s/p ureteral stent. Daniel catheter in place; assess daily for removal -continue meds as ordered -fall precautions; bed-bound at baseline -on diabetic diet -DVT ppx with heparin; H/H stable -Dispo: return to [facility] -Code status: FULL code Attestations Medical Necessity Statement*: Patient requires hospitalization for continued optimization of medication in anticipation of discharge Time Spent in Patient Care: Greater than 35 minutes (>than 50% of time spent in counselling and/or direct pt care on unit). Coding Level of Care Code Acute [facility] Exam Problem Focused Diagnoses Acute on chronic respiratory failure with hypoxia and hypercapnia J96.21; J96.22 Acute kidney injury N17.9 Congestive heart failure I50.33 Heart failure chronicity: acute on chronic Heart failure type: diastolic Acute hyperkalemia E87.5
--- NOTE | 2019-10-05 10:32 | DCPLANNER ---
Pg 2 of IM updated and reviewed with pt. No questions. Copy provided.
[2019-10-05 10:36] LABS: Glucose Point of Care 103 mg/dL (70-110)
[2019-10-05] MEDS: lanolin oint 7 gm 1 APPLIC TOPICAL (12:47)
[2019-10-05 17:56] LABS: Glucose Point of Care 237 mg/dL (70-110)
[2019-10-05] MEDS: amoxicillin-clav 875-125 mg Tablet 1 TAB PO (18:13)
[2019-10-05] MEDS: gabapentin 300 mg Capsule PO (20:24)
[2019-10-05 21:23] LABS: Glucose Point of Care 221 mg/dL (70-110)
[2019-10-06] VITALS (18 sets, daily range): BP systolic 158–173; BP diastolic 65–78; PULSE 42–64; RESP 15–24; TEMP 36.3–36.7; O2SAT 94–100
[2019-10-06] MEDS: ipratropium-albuterol 3 mL Neb INHALATION ×6 (00:20→20:00)
[2019-10-06] MEDS: enoxaparin 40 mg/0.4 mL Syringe SUBCUT (04:14)
[2019-10-06 04:44] LABS: Eosinophils # 0.1 10^3/uL (0.0-0.8); Eosinophils % 0.5 %; Hematocrit 27.8 % (37.0-47.0); Hemoglobin 8.3 g/dL (11.5-15.3); Lymphocytes # 0.9 10^3/uL (0.8-4.8); Lymphocytes % 9.5 %; Mean Corpuscular HGB Conc 29.9 g/dL (30.0-36.0); Mean Corpuscular Hemoglobin 27.7 pg (28.0-34.0); Mean Corpuscular Volume 92.7 fL (81-99); Mean Platelet Volume 9.7 fL (7.4-10.4); Monocytes # 0.5 10^3/uL (0.2-0.9); Monocytes % 5.7 %; Neutrophils # 7.6 10^3/uL (1.8-7.7); Neutrophils % 83.1 %; Nucleated Red Blood Cells % 0 %; Platelet Count 185 10^3/cmm (130-400); Red Cell Distribution Width 15.8 % (12.1-15.1); White Blood Count 9.1 10^3/uL (4.0-10.0)
[2019-10-06 05:00] LABS: Alanine Aminotransferase 15 U/L (0-33); Albumin Level 3.2 g/dL (3.5-5.2); Alkaline Phosphatase 46 IU/L (35-105); Aspartate Amino Transferase 8 U/L (0-32); Calcium 8.3 mg/dL (8.5-10.5); Carbon Dioxide 27 mmol/L (22-29); Chloride 93 mmol/L (98-107); Globulin 3.6 g/dL (1.3-4.6); Glomerular Filtration Rate 18.7 mL/min (90-130); Glucose 136 mg/dL (65-115); Sodium 135 mmol/L (136-145); Total Bilirubin 0.3 mg/dL (0.15-1.2); Total Protein 6.8 g/dL (6.6-8.7)
[2019-10-06 05:26] LABS: Blood Urea Nitrogen 89 mg/dL (8-23)
[2019-10-06 06:35] LABS: Glucose Point of Care 100 mg/dL (70-110)
--- NOTE | 2019-10-06 08:27 | PM.PN ---
Subjective Subjective: Interval history: on bipap. still swollen and sob. but much improved Medications: Reviewed: Yes Medication Review Details: Current Medications Acetaminophen (Tylenol) 650 mg PO Q6H PRN PRN Reason: Mild/Mod Pain Or Temp >/= 101 Last Admin: 10/05/19 08:59 Dose: 650 mg Documented by: Albuterol/Ipratropium (Duoneb) 3 ml INHALATION Q4H [facility] Last Admin: 10/06/19 07:34 Dose: 3 ml Documented by: Amlodipine Besylate (Norvasc) 5 mg PO DAILY [facility] Last Admin: 10/05/19 08:43 Dose: 5 mg Documented by: Amoxicillin/Clavulanate Potassium (Augmentin 875-125 Mg) 1 tab PO BID [facility]; Protocol Last Admin: 10/05/19 18:13 Dose: 1 tab Documented by: Atropine Sulfate (Atropine Syr) 0.5 mg IVP PRN PRN PRN Reason: HEART RATE < 40/MIN Bumetanide (Bumex) 2 mg PO BID [facility] Last Admin: 10/05/19 18:13 Dose: 2 mg Documented by: Dextrose (D50w) 25 ml IVP ONCE PRN; Protocol PRN Reason: hypoglycemia protocol Dextrose (D50w) 50 ml IVP PRN PRN; Protocol PRN Reason: hypoglycemia protocol Enoxaparin Sodium (Lovenox) 40 mg SUBCUT Q24H [facility] Last Admin: 10/06/19 04:14 Dose: 40 mg Documented by: Fluoxetine HCl (Prozac) 20 mg PO DAILY [facility] Last Admin: 10/05/19 08:43 Dose: 20 mg Documented by: Gabapentin (Neurontin) 300 mg PO BEDTIME [facility] Last Admin: 10/05/19 20:24 Dose: 300 mg Documented by: Glucagon (Glucagen) 1 mg IM ONCE PRN; Protocol PRN Reason: Adult Acute Hypoglycemia Prot. Guaifenesin (Mucinex) 1,200 mg PO BID [facility] Last Admin: 10/05/19 18:13 Dose: 1,200 mg Documented by: Dextrose (D5w) 500 mls @ 100 mls/hr IV ONCE PRN; Protocol PRN Reason: Adult Acute Hypoglycemia Prot Ferric Sodium Gluconate 125 mg (/ Sodium Chloride) 110 mls @ 110 mls/hr IV Q24H [facility] Stop: 10/11/19 09:59 Last Admin: 10/05/19 11:45 Dose: 110 mls/hr Documented by: Insulin Aspart (Novolog) 0 unit SUBCUT TIDWM [facility]; Protocol Last Admin: 10/05/19 18:14 Dose: 8 unit Documented by: Isosorbide Mononitrate (Imdur) 60 mg PO BID [facility] Last Admin: 10/05/19 18:13 Dose: 60 mg Documented by: Lanolin (Lanolin Oint) 1 applic TOPICAL PRN PRN PRN Reason: DRYNESS Last Admin: 10/05/19 12:47 Dose: 1 appful Documented by: Multivitamins Therapeutic (Multivitamin Tab) 1 tab PO DAILY [facility] Last Admin: 10/05/19 08:42 Dose: 1 tab Documented by: Ondansetron HCl (Zofran) 4 mg IVP Q8H PRN PRN Reason: vomiting, or N/V if npo Pantoprazole Sodium (Protonix) 40 mg PO DAILY [facility] Last Admin: 10/05/19 08:43 Dose: 40 mg Documented by: Senna (Senna Lax) 8.6 mg PO BID [facility] Last Admin: 10/05/19 18:13 Dose: 8.6 mg Documented by: Sevelamer Carbonate (Renvela) 800 mg PO TIDWM [facility] Last Admin: 10/05/19 18:20 Dose: 800 mg Documented by: Vitals/I&O/Wt Last Vital Signs Temp 97.4 F L 10/06/19 04:00 Pulse 60 10/06/19 07:37 Resp 16 10/06/19 07:25 BP 168/78 10/06/19 04:00 Pulse Ox 96 10/06/19 07:37 10/05/19 10/06/19 10/06/19 22:59 06:59 14:59 Intake Total 120 / 720 Output Total 600 / 2600 Balance -480 / -1880 Weight last 48 hrs Weight 155.837 kg Weight 156.603 kg Physical Exam Narrative: EXAM NARRATIVE: obese lady in bed, comfortable, NARD on bipap vs noted- heent- nc/at, eomi, anicteric neck- supple lungs -b/l crackles heart rrr, +ARRON abd soft, nt, nd, +BS ext b/l edema improving, skin- venous changes in legs, blue color to legs neuro- a,a, o x 3 pulses + b/l Urinary Catheter Management^: Burt: Cath Placed During This Visit: yes, but has since been removed by the nurse Urethral Indwelling: Yes Reason for Continuing Indwelling Catheter: Decision to DC Catheter Urinary Catheter Date of Insertion: 09/27/19 Urinary Catheter Time of Insertion: 00:05 Date Urinary Catheter Removed: 10/05/19 Time Urinary Catheter Discontinued: 14:00 Data : 10/06/19 04:25 10/06/19 04:25 A&P Additional A&P Information 1. Renal failure ROBBIE- presumed ATN. -cr stable- -remains off of dialysis -repeat renal us as burt catheter removed -monitor uop and chem 7 -pt has ckd stage 4- cr over 2 for last 6 + months 2. CHF- diuretics a sper hospitalist. monitor weights uop. adjust diuretics based on weight. may need higher diuretic dose or an iv bumex dose. however, her legs look much better, with decreased edema. 3. Multisystem organ failure given the recent admission with pneumonia and possible urinary tract infection, she's currently being treated for sources of infection with cultures sent and pending. Vanco and Zosyn on board -influenzae b as per hospitalist -check vanco troughs, keep under 19- PLEASE DO NOT REDOSE VANCO UNTIL LEVEL IS UNDER 19 4. anemia- low ferritin for infection and CKD likely ACD hgb falling- give iv iron 5. hyponatremia from ROBBIE and pulm process normal tsh -improving na 6. 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 high pth 197- repeat in 4 weeks -cont phos binder- phos improving 9. htn- monitor on current meds. when cr stable, will consider adding a ARB, as she is diabetic 7. bipap at night 8. consider PT to have pt ambulate seen w/ RN Attestations Medical Necessity Statement*: pna, robbie, ckd 4, anemia Time Spent in Patient Care: 16 - 35 minutes Coding Level of Care Code Acute [employer] for Amelia Haddad
--- NOTE | 2019-10-06 08:34 | US_ITS ---
WS: [id number] RENAL ULTRASOUND HISTORY: ckd, h/o hydronephrosis COMPARISON: 08/19/2019 TECHNIQUE: 2-D and color Doppler imaging of the kidney submitted. Right kidney: 12.7 cm x 6.4 cm x 6.2 cm. Mildly enlarged kidney. Moderate hydronephrosis is present. Hydronephrosis has been described on mult iple prior examinations. No ureteral stent is identified. LEFT kidney is not identified. Aorta: Not visualized. Urinary Bladder: Not visualized. US/US renal BI* [id number] IMPRESSION: 1. Significantly limited evaluation of the kidneys. 2. Moderate RIGHT hydronephrosis similar to multiple prior examinations. 3. LEFT kidney is not identified by ultrasound.
--- NOTE | 2019-10-06 09:20 | PM.PN ---
Subjective Subjective: Interval history: Had 600 mL urine output overnight, noted continued trend towards hypertension so will increase dose of amlodipine. Renal US ordered by nephrology which shows moderate right hydronephrosis which is unchanged from previous evaluation. Patient resting with BiPAP on, no complaints currently. No acute overnight events reported. Medications: Reviewed: Yes Medication Review Details: Current Medications Generic Name Dose Route Start Last Admin Trade Name Freq PRN Reason Stop Dose Admin Acetaminophen 650 mg 09/27/19 02:14 10/05/19 08:59 Tylenol PO 650 mg Q6H PRN Administration Mild/Mod Pain Or Temp >/= 101 Albuterol/Ipratrop ium 3 ml 09/27/19 08:00 10/06/19 07:34 Duoneb INHALATION 3 ml Q4H [facility] Administration Amoxicillin/Clavul anate Potassium 1 tab 10/05/19 18:00 10/05/19 18:13 Augmentin 875-12 5 Mg PO 1 tab BID [facility] Administration Protocol Bumetanide 2 mg 10/04/19 09:00 10/05/19 18:13 Bumex PO 2 mg BID [facility] Administration Enoxaparin Sodium 40 mg 09/30/19 02:00 10/06/19 04:14 Lovenox SUBCUT 40 mg Q24H [facility] Administration Fluoxetine HCl 20 mg 09/27/19 09:00 10/05/19 08:43 Prozac PO 20 mg DAILY [facility] Administration Gabapentin 300 mg 09/27/19 21:00 10/05/19 20:24 Neurontin PO 300 mg BEDTIME [facility] Administration Guaifenesin 1,200 mg 10/02/19 21:00 10/05/19 18:13 Mucinex PO 1,200 mg BID [facility] Administration Ferric Sodium Gluc french 125 mg 110 mls @ 110 mls /hr 10/04/19 09:00 10/05/19 11:45 / Sodium Chlorid e IV 10/11/19 09:59 110 mls/hr Q24H [facility] Administration Insulin Aspart 0 unit 09/27/19 08:00 10/05/19 18:14 Novolog SUBCUT 8 unit TIDWM [facility] Administration Protocol Isosorbide Mononit rate 60 mg 09/27/19 09:00 10/05/19 18:13 Imdur PO 60 mg BID [facility] Administration Lanolin 1 applic 10/05/19 12:16 10/05/19 12:47 Lanolin Oint TOPICAL 1 appful PRN PRN Administration DRYNESS Multivitamins Ther apeutic 1 tab 09/27/19 09:00 10/05/19 08:42 Multivitamin Tab PO 1 tab DAILY [facility] Administration Pantoprazole Sodiu m 40 mg 09/27/19 09:00 10/05/19 08:43 Protonix PO 40 mg DAILY [facility] Administration Senna 8.6 mg 09/27/19 09:00 10/05/19 18:13 Senna Lax PO 8.6 mg BID [facility] Administration Sevelamer Carbonat e 800 mg 09/27/19 08:00 10/05/19 18:20 Renvela PO 800 mg TIDWM [facility] Administration Vitals/I&O/Wt Last Vital Signs Temp 97.4 F L 10/06/19 04:00 Pulse 60 10/06/19 07:37 Resp 16 10/06/19 07:25 BP 168/78 10/06/19 04:00 Pulse Ox 96 10/06/19 07:37 10/05/19 10/06/19 10/06/19 22:59 06:59 14:59 Intake Total 120 / 720 Output Total 600 / 2600 Balance -480 / -1880 Weight last 48 hrs Weight 155.837 kg Weight 156.603 kg Physical Exam Narrative: EXAM NARRATIVE: <del>-Propofol</del> <del>@</del> <del>45</del> <del>mcg/kg/min</del> <del>-tube</del> <del>feeds</del> <del>@</del> <del>20</del> <del>mL/hr</del> Const: COMMON NORMALS: no apparent distress, oriented x3 and alert GENERAL APPEARANCE: cooperative and comfortable NUTRITIONAL APPEARANCE: obese morbidly obese ORIENTATION/CONSCIOUSNESS: Yes other (Sedated) HENMT: COMMON NORMALS: normocephalic, head/scalp atraumatic, hearing grossly normal bilaterally and moist oral mucous membranes HEAD & SCALP: normocephalic and atraumatic OTHER: <del>-ETT:</del> <del>24</del> <del>cm</del> <del>@</del> <del>lip</del> Eye: COMMON NORMALS: PERRL, EOMs intact bilaterally and conjunctivae normal CONJUNCTIVA: Yes conjunctivae normal PUPIL: Yes PERRL Neck/C-Spine: COMMON NORMALS: full ROM GENERAL: Yes trachea midline OTHER: short, thick neck Chest: OTHER: -Port-A-Cath in place on right, accessed Resp: COMMON NORMALS: no retractions and no use of accessory muscles EFFORT & INSPECTION: Yes symmetric chest movement and No tachypneic AUSCULTATION: crackles and diminished lung sounds bilateral OTHER: -auscultation limited by body habitus -on BiPAP Cardio: COMMON NORMALS: regular rhythm, S1 normal heart sound, S2 normal heart sound and no murmurs RATE: bradycardic (intermittently) RHYTHM: regular rhythm HEART SOUNDS: S1 normal and S2 normal GI: COMMON NORMALS: normal to inspection, nondistended, normoactive bowel sounds, soft to palpation and non-tender INSPECTION: Yes anasarca present, Yes central obesity and Yes pannus present PALPATION: Yes soft : BLADDER/KIDNEY EXAM: Yes catheter in place Catheter type (Female): urethral OTHER: <del>-femoral</del> <del>(R)</del> <del>tunneled</del> <del>catheter</del> Extremity: COMMON NORMALS: normal to inspection and full ROM; negative for no pedal edema OTHER: -non-pitting edema on bilateral upper thighs and lower abdominal wall (improving) Neuro: COMMON NORMALS: oriented x3 and no focal motor deficits SENSORIUM/ORIENTATION: Yes alert Psych: COMMON NORMALS: mental status grossly normal, thought process normal, cooperative, affect normal and speech normal SPEECH: Yes normal speech THOUGHT PROCESS: normal thought process OTHER: sedated Skin: COMMON NORMALS: no jaundice, no petechiae and no mottling OTHER: -chronic venous stasis dermatitis on bilateral lower extremities -onychomycosis of bilateral toenails, worse on the R -R gluteal area with noted shearing, blanchable erythema on the rest of the sacral area -extensive intertrigo over multiple skin folds including axillary areas, pannus, inguinal areas (improved) Urinary Catheter Management^: Daniel: Cath Placed During This Visit: yes, but has since been removed by the nurse Urethral Indwelling: Yes Reason for Continuing Indwelling Catheter: Decision to DC Catheter Urinary Catheter Date of Insertion: 09/27/19 Urinary Catheter Time of Insertion: 00:05 Date Urinary Catheter Removed: 10/05/19 Time Urinary Catheter Discontinued: 14:00 Data : 10/06/19 04:25 10/06/19 04:25 A&P Assessment and plan (1) Acute on chronic respiratory failure with hypoxia and hypercapnia: -off vent support (5 days) -is oxygen dependent at baseline, 2 L, BiPAP qhs -BNP: 46,000; chronically elevated -CXR: noted LLL atelectasis vs. consolidation and patchy RLL infiltrates -on IV steroids, empiric antibiotics; s/p extubation, d/c oral steroids. Will d/c IV antibiotics and start on Augmentin (no need for dose adjustment as CrCl-54) to complete 7 day course -noted high vanc trough; on hold -ABG noted, normal pH, resolved hypoxia and hypercapnia -influenza B positive; off droplet precautions, completed Tamiflu x 5 days -blood cx: negative -sputum cx: mixed geoff Status: Acute Code(s): J96.21 - Acute and chronic respiratory failure with hypoxia; J96.22 - Acute and chronic respiratory failure with hypercapnia (2) Acute kidney injury: -ROBBIE on CKD stage 4; baseline Cr is around 2-3 -continue to monitor renal function; currently at baseline -Nephrology consult appreciated -HD x 3 sessions; no HD today; has tunneled catheter (femoral) in place which will be removed today as no further HD needed -renally dose meds, avoid nephrotoxins -has Daniel catheter in place, continue to monitor urine output; good urine output overnight; d/c Daniel today Status: Acute Code(s): N17.9 - Acute kidney failure, unspecified (3) Congestive heart failure: -Echo: EF=55%, no RWMA, G2DD, mild TR; clinically anasarcic -on diuresis with oral Bumex; positive fluid balance persists -off vent support -daily weights, monitor Is & Os -no longer requiring HD intermittently Status: Acute Qualifiers: Heart failure chronicity: acute on chronic Heart failure type: diastolic Qualified Code(s): I50.33 - Acute on chronic diastolic (congestive) heart failure Code(s): I50.9 - Heart failure, unspecified (4) Acute hyperkalemia: -persistent hyperkalemia despite medical intervention responded to HD; K wnl -continue to monitor Status: Acute Code(s): E87.5 - Hyperkalemia Additional A&P Information -HTN; BP appropriate -Acute on chronic normocytic anemia; baseline Hg 7-8. Continue to monitor H/H. Has had GI w/u done before showing antral petechiae and colonoscopy showing diverticulosis; no active bleeding (12/2016). S/p 1 unit of PRBCs on 09/28; stable Hg. IV iron replacement ongoing -IDDM type II; A1c-5.5; continue accuchecks -Morbid obesity: BMI-56 kg/m2 -Chronic constipation; on bowel regimen; having BMs -Peripheral vascular disease -Depression, anxiety -Bradycardia; chronic; Atropine PRN; none needed -UTI; on antibiotics; urine cx-mixed geoff -hx of R hydronephrosis s/p ureteral stent. Daniel catheter discontinued -continue meds as ordered -fall precautions; bed-bound at baseline -on diabetic diet -DVT ppx with heparin; H/H stable -Dispo: return to [facility] -Code status: FULL code Attestations Medical Necessity Statement*: Patient requires hospitalization for continued diuresis, medication optimization. Time Spent in Patient Care: Greater than 35 minutes (>than 50% of time spent in counselling and/or direct pt care on unit). Coding Level of Care Code Acute Bond Analyst for Amelia Mckayd Exam Problem Focused Diagnoses Acute on chronic respiratory failure with hypoxia and hypercapnia J96.21; J96.22 Acute kidney injury N17.9 Congestive heart failure I50.33 Heart failure chronicity: acute on chronic Heart failure type: diastolic Acute hyperkalemia E87.5
[2019-10-06] MEDS: guaiFENesin 600 mg Tablet 1200 MG PO ×2 (09:52→18:39)
[2019-10-06] MEDS: amoxicillin-clav 875-125 mg Tablet 1 TAB PO ×2 (09:53→18:39)
[2019-10-06] MEDS: amlodipine 5 mg Tablet 10 MG PO (09:53)
[2019-10-06] MEDS: pantoprazole DR 40 mg Tablet PO (09:53)
[2019-10-06] MEDS: sevelamer 800 mg Tablet PO ×3 (09:53→18:41)
[2019-10-06] MEDS: fluoxetine 20 mg Capsule PO (09:53)
[2019-10-06] MEDS: isosorbide mononitrate ER 30 mg Tablet 60 MG PO ×2 (09:53→18:39)
[2019-10-06] MEDS: sennosides 8.6 mg Tablet PO ×2 (09:54→18:39)
[2019-10-06] MEDS: multivitamin therapeutic Tablet 1 TAB PO (09:54)
[2019-10-06] MEDS: bumetanide 0.25 mg/mL SDV 10 mL 1 MG IV (09:58)
[2019-10-06] MEDS: bumetanide 1 mg Tablet 2 MG PO ×2 (10:06→18:39)
[2019-10-06 11:37] LABS: Glucose Point of Care 124 mg/dL (70-110)
[2019-10-06 17:13] LABS: Glucose Point of Care 131 mg/dL (70-110)
[2019-10-06] MEDS: gabapentin 300 mg Capsule PO (20:56)
[2019-10-06 21:48] LABS: Glucose Point of Care 125 mg/dL (70-110)
[2019-10-07] VITALS (15 sets, daily range): BP systolic 156–177; BP diastolic 65–76; PULSE 49–62; RESP 14–21; TEMP 36.8; O2SAT 95–98
[2019-10-07] MEDS: ipratropium-albuterol 3 mL Neb INHALATION ×5 (00:37→15:29)
[2019-10-07] MEDS: enoxaparin 40 mg/0.4 mL Syringe SUBCUT (02:18)
[2019-10-07 06:27] LABS: Basophils % 0.1 %; Eosinophils # 0.4 10^3/uL (0.0-0.8); Eosinophils % 3.8 %; Hematocrit 27.2 % (37.0-47.0); Hemoglobin 8.2 g/dL (11.5-15.3); Lymphocytes # 0.9 10^3/uL (0.8-4.8); Lymphocytes % 9.3 %; Mean Corpuscular HGB Conc 30.1 g/dL (30.0-36.0); Mean Corpuscular Hemoglobin 28.3 pg (28.0-34.0); Mean Corpuscular Volume 93.8 fL (81-99); Mean Platelet Volume 9.7 fL (7.4-10.4); Monocytes # 0.5 10^3/uL (0.2-0.9); Monocytes % 5.6 %; Neutrophils # 7.6 10^3/uL (1.8-7.7); Neutrophils % 80.3 %; Nucleated Red Blood Cells % 0 %; Platelet Count 196 10^3/cmm (130-400); Red Cell Distribution Width 16.1 % (12.1-15.1); White Blood Count 9.5 10^3/uL (4.0-10.0)
[2019-10-07 06:37] LABS: Glucose Point of Care 133 mg/dL (70-110)
[2019-10-07 06:43] LABS: Alanine Aminotransferase 15 U/L (0-33); Albumin Level 3.5 g/dL (3.5-5.2); Alkaline Phosphatase 47 IU/L (35-105); Anion Gap 19.7 (5-19); Aspartate Amino Transferase 10 U/L (0-32); Calcium 8.7 mg/dL (8.5-10.5); Carbon Dioxide 26 mmol/L (22-29); Chloride 94 mmol/L (98-107); Globulin 2.7 g/dL (1.3-4.6); Glomerular Filtration Rate 18.7 mL/min (90-130); Glucose 137 mg/dL (65-115); Phosphorus 6.5 mg/dL (2.5-4.5); Potassium 3.7 mmol/L (3.5-5.1); Sodium 136 mmol/L (136-145); Total Bilirubin 0.2 mg/dL (0.15-1.2); Total Protein 6.2 g/dL (6.6-8.7)
[2019-10-07 06:52] LABS: Blood Urea Nitrogen 100 mg/dL (8-23)
[2019-10-07] MEDS: amlodipine 5 mg Tablet 10 MG PO (09:29)
[2019-10-07] MEDS: pantoprazole DR 40 mg Tablet PO (09:29)
[2019-10-07] MEDS: guaiFENesin 600 mg Tablet 1200 MG PO (09:29)
[2019-10-07] MEDS: isosorbide mononitrate ER 30 mg Tablet 60 MG PO (09:29)
[2019-10-07] MEDS: sevelamer 800 mg Tablet PO ×2 (09:29→12:37)
[2019-10-07] MEDS: fluoxetine 20 mg Capsule PO (09:29)
[2019-10-07] MEDS: bumetanide 1 mg Tablet 2 MG PO (09:30)
[2019-10-07] MEDS: amoxicillin-clav 875-125 mg Tablet 1 TAB PO (09:30)
[2019-10-07] MEDS: multivitamin therapeutic Tablet 1 TAB PO (09:30)
[2019-10-07] MEDS: sennosides 8.6 mg Tablet PO (09:30)
--- NOTE | 2019-10-07 10:29 | PM.DCS ---
Discharge Providers Date of Admission: 09/26/19 22:54 Date of Discharge: October 07, 2019 Attending Provider at Admission: Gaston Faulkner MD Attending Provider at Discharge: Brisa Khoury MD Primary Care Provider: Keith Cortez DO Diagnoses at Discharge Discharge Diagnosis (1) Acute on chronic respiratory failure with hypoxia and hypercapnia: Status: Acute Problem details: -off vent support (5 days) -is oxygen dependent at baseline, 2 L, BiPAP qhs -BNP: 46,000; chronically elevated -CXR: noted LLL atelectasis vs. consolidation and patchy RLL infiltrates -on IV steroids, empiric antibiotics; s/p extubation, d/c oral steroids. Will d/c IV antibiotics and start on Augmentin (no need for dose adjustment as CrCl-54) to complete 7 day course -noted high vanc trough; on hold -ABG noted, normal pH, resolved hypoxia and hypercapnia -influenza B positive; off droplet precautions, completed Tamiflu x 5 days -blood cx: negative -sputum cx: mixed geoff (2) Acute kidney injury: Status: Acute Problem details: -ROBBIE on CKD stage 4; baseline Cr is around 2-3 -continue to monitor renal function; currently at baseline -Nephrology consult appreciated -HD x 3 sessions; no HD today; has tunneled catheter (femoral) in place which will be removed today as no further HD needed -renally dose meds, avoid nephrotoxins -d/c Daniel and has been able to void independently (3) Congestive heart failure: Status: Acute Problem details: -Echo: EF=55%, no RWMA, G2DD, mild TR; clinically anasarcic -on diuresis with oral Bumex; positive fluid balance persists -off vent support -daily weights, monitor Is & Os -no longer requiring HD intermittently Qualifiers: Heart failure chronicity: acute on chronic Heart failure type: diastolic Qualified Code(s): I50.33 - Acute on chronic diastolic (congestive) heart failure (4) Acute hyperkalemia: Status: Acute Problem details: -persistent hyperkalemia despite medical intervention responded to HD; K wnl -continue to monitor Other Information Additional DC diagnoses/information: -HTN; BP trending up -Acute on chronic normocytic anemia; baseline Hg 7-8. Continue to monitor H/H. Has had GI w/u done before showing antral petechiae and colonoscopy showing diverticulosis; no active bleeding (12/2016). S/p 1 unit of PRBCs on 09/28; stable Hg. IV iron replacement ongoing -IDDM type II; A1c-5.5; continue accuchecks -Morbid obesity: BMI-56 kg/m2 -Chronic constipation; on bowel regimen; having BMs -Peripheral vascular disease -Depression, anxiety -Bradycardia; chronic; Atropine PRN; none needed -UTI; on antibiotics; urine cx-mixed geoff -hx of R hydronephrosis s/p ureteral stent. Daniel catheter discontinued Reason for Visit Reason for Visit: Reason For Visit: HYPERKULEMIA, ACUTE KIDNEY INJURY, DYSPNEA Hospital Course Hospital Course: Patient was initially admitted to ICU secondary to acute on chronic respiratory failure requiring mechanical ventilation. She required aggressive IV diuresis and due to noted significant renal impairment and persistent hyperkalemia, also required hemodialysis with placement of tunneled catheter for access. She remained on vent support for approximately 5 days then was successfully weaned off and transitioned to BiPAP which she is chronically dependent on. Hyperkalemia resolved following intermittent hemodialysis, and anasarca gradually improved as well. Once determined that she no longer required hemodialysis her access was discontinued. Once clinically stable she was transitioned to the medical surgical floor for continued care. She was eventually transitioned off of IV bumex to oral for continued diuresis. While on vent support she did require tube feeding. She was found to have extensive intertrigo and has been on an air mattress for the entirety of her hospital stay. She was covered with empiric IV antibiotics while on ventilator which was eventually transitioned to oral Augmentin which she will need to continue to complete a 7-day course. She was found to be influenza B positive and was treated with Tamiflu. For the entirety of her treatment, she was on droplet precautions. She had Daniel catheter placed in the ER that has since been discontinued and she has been able to void independently. She has been tolerating oral intake without difficulty. She is bed-bound at baseline. Blood pressure has gradually been trending up but due to baseline bradycardia and noted allergy to hydralazine has remained on her oral antihypertensives. She is at high risk for readmission given her extensive comorbidities. Continue to use supplemental oxygen and BiPAP on return back to [place]. Discharge Summary: -Patient to follow-up with her primary care physician within 1 week Physical Exam Narrative: EXAM NARRATIVE: <del>-Propofol</del> <del>@</del> <del>45</del> <del>mcg/kg/min</del> <del>-tube</del> <del>feeds</del> <del>@</del> <del>20</del> <del>mL/hr</del> Const: COMMON NORMALS: no apparent distress, oriented x3 and alert GENERAL APPEARANCE: cooperative and comfortable NUTRITIONAL APPEARANCE: obese morbidly obese ORIENTATION/CONSCIOUSNESS: Yes other (Sedated) HENMT: COMMON NORMALS: normocephalic, head/scalp atraumatic, hearing grossly normal bilaterally and moist oral mucous membranes HEAD & SCALP: normocephalic and atraumatic OTHER: <del>-ETT:</del> <del>24</del> <del>cm</del> <del>@</del> <del>lip</del> Eye: COMMON NORMALS: PERRL, EOMs intact bilaterally and conjunctivae normal CONJUNCTIVA: Yes conjunctivae normal PUPIL: Yes PERRL Neck/C-Spine: COMMON NORMALS: full ROM GENERAL: Yes trachea midline OTHER: short, thick neck Chest: OTHER: -Port-A-Cath in place on right, accessed Resp: COMMON NORMALS: no retractions and no use of accessory muscles EFFORT & INSPECTION: Yes symmetric chest movement and No tachypneic AUSCULTATION: crackles and diminished lung sounds bilateral OTHER: -auscultation limited by body habitus -on BiPAP Cardio: COMMON NORMALS: regular rhythm, S1 normal heart sound, S2 normal heart sound and no murmurs RATE: bradycardic (intermittently) RHYTHM: regular rhythm HEART SOUNDS: S1 normal and S2 normal GI: COMMON NORMALS: normal to inspection, nondistended, normoactive bowel sounds, soft to palpation and non-tender INSPECTION: Yes anasarca present, Yes central obesity and Yes pannus present PALPATION: Yes soft : BLADDER/KIDNEY EXAM: Yes catheter in place Catheter type (Female): urethral OTHER: <del>-femoral</del> <del>(R)</del> <del>tunneled</del> <del>catheter</del> Extremity: COMMON NORMALS: normal to inspection and full ROM; negative for no pedal edema OTHER: -non-pitting edema on bilateral upper thighs and lower abdominal wall (improving) Neuro: COMMON NORMALS: oriented x3 and no focal motor deficits SENSORIUM/ORIENTATION: Yes alert OTHER: responsive to verbal and tactile stimulation Psych: COMMON NORMALS: mental status grossly normal, thought process normal, cooperative, affect normal and speech normal SPEECH: Yes normal speech THOUGHT PROCESS: normal thought process Skin: COMMON NORMALS: no jaundice, no petechiae and no mottling OTHER: -chronic venous stasis dermatitis on bilateral lower extremities -onychomycosis of bilateral toenails, worse on the R -R gluteal area with noted shearing, blanchable erythema on the rest of the sacral area -extensive intertrigo over multiple skin folds including axillary areas, pannus, inguinal areas (improved) Urinary Catheter Management^: Daniel: Cath Placed During This Visit: yes, but has since been removed by the nurse Urethral Indwelling: Yes Reason for Continuing Indwelling Catheter: Decision to DC Catheter Urinary Catheter Date of Insertion: 09/27/19 Urinary Catheter Time of Insertion: 00:05 Date Urinary Catheter Removed: 10/05/19 Time Urinary Catheter Discontinued: 14:00 Discharge Data Data Completed and Pending: Completed Studies During Hospitalization Category Date Time Status CXRP [XR chest 1V portable 67980] R outine Exams 09/27/19 10:21 Completed CXRP [XR chest 1V portable 66715] R outine Exams 10/02/19 07:44 Completed XR chest 1V luis a ble 18484 Routine Exams 09/27/19 00:46 Completed XR chest 1V luis a ble 51273 Routine Exams 09/27/19 17:43 Completed XR chest 1V luis a ble 39948 Routine Exams 09/29/19 06:00 Completed XR chest 1V luis a ble 79347 Routine Exams 09/30/19 06:00 Completed XR chest 1V luis a ble 59859 Urgent Exams 09/26/19 20:39 Completed US renal BI* [id number] 0 Routine Ultrasound 10/06/19 08:34 Completed Pending at discharge Category Date Time Status Complete Blood Co unt w/Auto AM LABS Lab 10/08/19 04:00 Ordered Comprehensive Met abolic Panel AM LA BS Lab 10/08/19 04:00 Ordered Phosphorus AM LAB S Lab 10/08/19 04:00 Ordered Labs from last 24 hours 10/07/19 10/07/19 10/07/19 06:24 06:09 06:09 WBC 9.5 RBC 2.90 L Hgb 8.2 L Hct 27.2 L MCV 93.8 MCH 28.3 MCHC 30.1 RDW 16.1 H Plt Count 196 MPV 9.7 Neut % (Auto) 80.3 Lymph % (Auto) 9.3 [place] % (Auto) 5.6 Eos % (Auto) 3.8 Baso % (Auto) 0.1 Neut # (Auto) 7.6 Lymph # (Auto) 0.9 [place] # (Auto) 0.5 Eos # (Auto) 0.4 Baso # (Auto) 0.0 Nucleated RBC % (a uto) 0 Nucleated RBCs # 0.0 Sodium 136 Potassium 3.7 Chloride 94 L Carbon Dioxide 26 Anion Gap 19.7 H BUN 100 H* Creatinine 2.6 H GFR Calculation 18.7 L Glucose 137 H POC Glucose 133 Calcium 8.7 Phosphorus 6.5 H Total Bilirubin 0.2 AST 10 ALT 15 Alkaline Phosphata se 47 Total Protein 6.2 L Albumin 3.5 Globulin 2.7 10/06/19 10/06/19 10/06/19 21:27 17:00 10:53 WBC RBC Hgb Hct MCV MCH MCHC RDW Plt Count MPV Neut % (Auto) Lymph % (Auto) [place] % (Auto) Eos % (Auto) Baso % (Auto) Neut # (Auto) Lymph # (Auto) [place] # (Auto) Eos # (Auto) Baso # (Auto) Nucleated RBC % (a uto) Nucleated RBCs # Sodium Potassium Chloride Carbon Dioxide Anion Gap BUN Creatinine GFR Calculation Glucose POC Glucose 125 131 124 Calcium Phosphorus Total Bilirubin AST ALT Alkaline Phosphata se Total Protein Albumin Globulin Vitals: Last Vital Signs Temp 98.3 F 10/07/19 07:56 Pulse 60 10/07/19 07:56 Resp 18 10/07/19 07:56 BP 177/76 10/07/19 07:56 Pulse Ox 96 10/07/19 07:56 Discharge Plan Discharge Patient Disposition: Xfer SNF Condition: Stable Prescriptions: New bumetanide 1 mg Tablet 2 mg PO BID 30 Days Qty: 120 RF: 0 amoxicillin-pot clavulanate 875-125 mg Tablet 1 tab PO BID 5 Days Qty: 10 RF: 0 Continued multivitamin Capsule 1 cap PO DAILY RF: 0 acetaminophen [Acetaminophen Pain Relief] 500 mg Tablet 500 mg PO Q6H PRN (Reason: Pain) RF: 0 cetirizine [Zyrtec] 10 mg Tablet 10 mg PO DAILY RF: 0 isosorbide mononitrate 30 mg tablet extended release 24 hr 60 mg PO BID RF: 0 magnesium hydroxide [Milk of Magnesia] 400 mg/5 mL Suspension 30 ml PO DAILY PRN (Reason: CONSTIPATION) RF: 0 pantoprazole [Protonix] 40 mg Tablet,Delayed Release (Dr/Ec) 40 mg PO DAILY RF: 0 ferrous sulfate 325 mg (65 mg iron) Tablet 325 mg PO QAM RF: 0 gabapentin 300 mg capsule 300 mg PO BEDTIME RF: 0 fluoxetine 20 mg Capsule 20 mg PO DAILY RF: 0 Fleet Enema 1 ML solution 1 ml NC DAILY PRN (Reason: Constipation) RF: 0 Renvela 800 MG tablet 800 mg PO TIDWM RF: 0 Senokot tablet 1 tab PO BID RF: 0 bumetanide 1 mg tablet 1 mg PO BID Qty: 60 RF: 0 bisacodyl 10 mg Suppository 10 mg NC DAILY PRN (Reason: Constipation) RF: 0 bisacodyl 5 mg Tablet,Delayed Release (Dr/Ec) 10 mg PO DAILY PRN (Reason: Constipation) RF: 0 amlodipine 5 mg tablet 5 mg PO BID 30 Days Qty: 60 RF: 0 Discharge Orders: Discharge Order (Routine); Ordered 10/07/19 Ordered By: Brisa Khoury Referrals: [facility] [Outside] Keith Cortez DO [Primary Care Provider] - 4-7 days (Post-hospital follow up) Discharge Diet: Cardiac and Diabetic Discharge Activity: Resume usual activity Discharge Date/Time: 10/07/19 16:50 Discharge Attestations Time Spent in Discharge Care*: greater than 30 min Specific Discharge Activities: Specific discharge activities: educating patient, discussing with piano case maker/social workers/dc planners, documenting/other paperwork and evaluating patient/reviewing data Status at Discharge: Cognitive status at discharge: cognitively intact, Behavioral status at discharge: cooperative, Functional status at discharge: bed bound Overall status at discharge: patient is back to baseline Quality Metrics Clinical Quality Measures During this hospital stay, did patient experience: None Coding Level of Care Code Acute Jar Filler for Chg Fwd Exam Problem Focused Diagnoses Acute on chronic respiratory failure with hypoxia and hypercapnia J96.21; J96.22 Acute kidney injury N17.9 Congestive heart failure I50.33 Heart failure chronicity: acute on chronic Heart failure type: diastolic Acute hyperkalemia E87.5
--- NOTE | 2019-10-07 10:50 | PC.SOCIAL ---
IMM Updated Page 2 of IMM updated and given to patient. Initialed, dated, and timed and placed back in chart.
[2019-10-07 11:24] LABS: Glucose Point of Care 145 mg/dL (70-110)
--- NOTE | 2019-10-07 16:27 | PC.CHAP ---
Pastoral Care Encounter/Spiritual Assessment Type of Contact [] Declined creative recruiter visit [] Patient/Family/Request visit [] Outpatient visit [] Follow-up visit [] Physician referral [] Code/Alert [] Routine visit [] Staff referral [] Actively dying [] Patient sleeping [] Family support [] [] Out of room [] Palliative care [] [] Receiving care in room [] Pre-surgical visit [] Trauma [] Long length of stay [] ICU visit [] Other: Patient on life support Relational/Emotional Strength [] Patient feels connected with others/family/visitors/staff [] Distress [] Loneliness/isolation [] Abandonment Spirituality of Patient [] Person of [place] [] Attends Confucianist of their [place] [] Believes in Prayer [] Reads Bible or Sabianist materials [] There are Spiritual issues to be addressed [employer] Interventions [] Prayer [x] Active listening [x] Non-anxious presence [x] Spiritual/emotional support [] Crisis/trauma care [] Spiritual counseling [] Bereavement support [] Provided bereavement packet [] Provided Bible/devotional materials [] Provided toy/stuffed animal, coloring book to patient or family member [] Provided Communion [] Anointing/[place] [] Salvation [] Completed spiritual assessment [] Other: Impact on Illness or Injury [] Angry [] Fearful [] Anxious [] Often cries [] Exhaustion [] Unable to work [] Unable to attend judaism [] Unable to walk/stand [] Unable to read [] Unable to drive [] Unable to eat/drink [] Unable to sleep [] Unable to be with family [] Patient intubated [] Other: Summary Patient unable to talk Time spent with patient 20min
== END 2019-10-07 16:50 | disposition skilled nursing facility (03) | DRG 207 ==
LOC: ER 23:11 → ICU 23:12 → MEDSURG 10-03 16:18
PROVIDERS: Internal Medicine Nephrology; Admitting Provider Family Medicine; Emergency Provider Emergency Medicine; Family Provider Family Medicine; PCP Family Medicine; Visit Provider Family Medicine
DX: J96.21 Acute and chronic respiratory failure with hypoxia (principal); I50.33 Acute on chronic diastolic (congestive) heart failure; N17.9 Acute kidney failure, unspecified; I13.0 Hypertensive heart and chronic kidney disease with heart failure and stage 1 through stage 4 chronic kidney disease, or unspecified chronic kidney disease; N18.4 Chronic kidney disease, stage 4 (severe); E66.2 Morbid (severe) obesity with alveolar hypoventilation; Z68.43 Body mass index [BMI] 50.0-59.9, adult; N39.0 Urinary tract infection, site not specified; J96.22 Acute and chronic respiratory failure with hypercapnia; J11.1 Influenza due to unidentified influenza virus with other respiratory manifestations; E87.5 Hyperkalemia; J44.9 Chronic obstructive pulmonary disease, unspecified; Z99.81 Dependence on supplemental oxygen; E11.22 Type 2 diabetes mellitus with diabetic chronic kidney disease; I27.20 Pulmonary hypertension, unspecified; D63.1 Anemia in chronic kidney disease; K21.9 Gastro-esophageal reflux disease without esophagitis; Z96.0 Presence of urogenital implants; I87.8 Other specified disorders of veins; E11.51 Type 2 diabetes mellitus with diabetic peripheral angiopathy without gangrene; R41.82 Altered mental status, unspecified; R00.1 Bradycardia, unspecified; K57.90 Diverticulosis of intestine, part unspecified, without perforation or abscess without bleeding; D64.9 Anemia, unspecified; Z87.891 Personal history of nicotine dependence; K59.09 Other constipation; F41.8 Other specified anxiety disorders; Z87.440 Personal history of urinary (tract) infections
CPT/HCPCS: 12345; 31500; 36415; 36416; 36430; 36600; 51702; 71045; 76770; 80048; 80051; 80053; 80202; 81001; 82310; 82550; 82570; 82728; 82803; 82810; 82962; 83690; 83735; 83880; 83970; 83986; 84100; 84300; 84443; 85025; 86706; 86850; 86900; 87040; 87070; 87086; 87340; 87804; 90935; 93005; 94002; 94003; 94640; 94660; 94799; 96365; 96366; 96372; 96374; 96375; 99285; J0610; J1642; J1644; J1650; J1815; J2543; J2704; J2916; J2920; J3370; J3490; J7030; J7050; J7512; P9016; Q3014

== ENCOUNTER 2019-10-08 12:28 | Emergency (ER) | payer MEDICARE, MEDICAID, SELFPAY ==
[2019-10-08 12:29] VITALS: BP 128/69; PULSE 76; RESP 18; TEMP 36.7; O2SAT 92; BMI 52.4
--- NOTE | 2019-10-08 12:34 | ED_ITS ---
HPI - SOB/Dyspnea General: Chief Complaint: Shortness of Breath/Dyspnea Stated Complaint: SHORTNESS OF BREATH Time Seen by Provider: 10/08/19 12:34 History of Present Illness: HPI Narrative: 59-year-old female that was released from the ICU after prolonged stay was intubated. She was cared for by Dr. Khoury who I checked with after the patient arrived here she is essentially BiPAP dependent she can at times for periods come off of the BiPAP during the day but then frequently will require it even during the day. She is completely dependent on it at night. Patient denies any fever sweats or chills [facility] and called EMS due to low O2 sats. EMS reports that she was essentially asymptomatic when she arrived. On arrival here she is on EMS CPAP with high flow oxygen her sats are 94 to 95% she is awake and alert oriented and answers questions well. Associated symptoms: Deny abdominal pain, chest pain, fever(s), nausea, orthopnea or vomiting Review of Systems Const: Denies: fever, chills, body aches, change in appetite, fatigue or malaise ENMT: Denies: throat pain, ear pain, nasal discharge or nasal congestion Card: Denies: chest pain, edema, shortness of breath on exertion or shortness of breath when lying down Resp: Denies: shortness of breath, productive cough or non-productive cough GI: Denies: abdominal pain, nausea, vomiting, vomiting blood, coffee grounds in vomit, diarrhea, constipation, bloating, blood in stool or black tarry stool : Denies: flank pain, difficulty urinating, painful urination, urinary frequency or urinary urgency Skin/Breast: Denies: rash or itching PFSH ED PFSH: Surgical History (Updated 09/27/19 @ 01:44 by Gaston Faulkner MD) History of ankle surgery History of ureter stent Hx of hemorrhoidectomy Hx of hernia repair Hx of hysterectomy Family History (Updated 09/06/19 @ 17:14 by CALOS Lewis) Mother , AT AGE 90 Hypertension Father , AT AGE 59 Diabetes Social History (Updated 09/06/19 @ 17:15 by CALOS Lewis) Smoking and tobacco status: former smoker Quit status (tobacco): has quit using tobacco Alcohol intake: never Adopted: No Caregiver/support person: No Lives independently: No Housing: Correction Current occupational status: disabled Physical Exam Const: COMMON NORMALS: no apparent distress GENERAL APPEARANCE: cooperative and comfortable ORIENTATION/CONSCIOUSNESS: Yes awake, Yes oriented to person, Yes oriented to place and Yes oriented to time HENMT: COMMON NORMALS: normocephalic, head/scalp atraumatic, hearing grossly normal bilaterally, external ears normal, EAC's normal, TM's normal bilaterally, nasal mucous membranes and turbinates normal, moist oral mucous membranes and oropharynx normal HEAD & SCALP: normocephalic and atraumatic NOSE: nasal mucous membranes and turbinates normal EXTERNAL EAR: Yes external ears normal EXTERNAL AUDITORY CANAL: EAC's normal TYMPANIC MEMBRANE: TM's normal bilaterally Eye: COMMON NORMALS: PERRL, EOMs intact bilaterally, conjunctivae normal and no scleral icterus CONJUNCTIVA: Yes conjunctivae normal PUPIL: Yes PERRL Neck/C-Spine: COMMON NORMALS: full ROM, no lymphadenopathy, supple and no JVD Lymph: LYMPHATIC: no lymphadenopathy noted and no lymphedema noted Resp: COMMON NORMALS: normal respiratory effort, no retractions and no use of accessory muscles AUSCULTATION: no rales, no rhonchi, no wheezes and diminished lung sounds Cardio: COMMON NORMALS: no JVD, regular rate, regular rhythm and no murmurs RATE: regular rate RHYTHM: regular rhythm GI: COMMON NORMALS: soft to palpation and no hepatosplenomegaly AUSCULTATION: Yes normoactive bowel sounds PALPATION: Yes soft, No tender, No guarding and Yes no hepatosplenomegaly Extremity: COMMON NORMALS: normal to inspection, normal capillary refill, no clubbing, cyanosis or edema, no calf tenderness and no pedal edema Neuro: SENSORIUM/ORIENTATION: Yes oriented to person, Yes oriented to place and Yes oriented to time Skin: COMMON NORMALS: no rashes or lesions noted GENERAL SKIN EXAM: no rashes or lesions noted Course ED course: Patient is actually very complicated she was just discharged yesterday. Look at her old labs and hospital course also discussed with Dr. Khoury who cared for in the ICU Dr. Khoury was also available and stepped in and seen the patient emergency room she felt that she was at her baseline she had no respiratory distress at all we maintained her on BiPAP as she sometimes does use it regularly during the day she is feeling much better by the time she arrived. We did not see any hypoxia in her here at all. ABG showed essentially slightly elevated's PCO2 may just generally be worsening well but some of it may be from the high flow oxygen received on the way in. She improved has improved markedly and prefer to go home and find anything that we need to keep before we will discharge her back to the [place] [facility] Vital Signs: Vital signs: Vital Signs Temperature 98.1 F 10/08/19 12:29 Pulse Rate 93 10/08/19 13:56 Respiratory Rate 19 H 10/08/19 13:49 Blood Pressure 124/49 10/08/19 13:56 Pulse Oximetry 93 10/08/19 13:56 MDM - SOB/Dyspnea Lab Data: Labs: Lab Results 10/08/19 10/08/19 10/08/19 Range/Units 12:29 13:00 13:00 WBC 9.0 (4.0-10.0) 10^3/ uL RBC 3.06 L (4.1-5.3) 10^6/u L Hgb 8.3 L (11.5-15.3) g/dL Hct 27.5 L (37.0-47.0) % MCV 89.9 (81-99) fL MCH 27.1 L (28.0-34.0) pg MCHC 30.2 (30.0-36.0) g/dL RDW 16.2 H (12.1-15.1) % Plt Count 184 (130-400) 10^3/c mm MPV 9.3 (7.4-10.4) fL Neut % (Auto) 81.5 % Lymph % (Auto) 8.7 % [place] % (Auto) 6.3 % Eos % (Auto) 2.4 % Baso % (Auto) 0.1 % Neut # (Auto) 7.3 (1.8-7.7) 10^3/u L Lymph # (Auto) 0.8 (0.8-4.8) 10^3/u L [place] # (Auto) 0.6 (0.2-0.9) 10^3/u L Eos # (Auto) 0.2 (0.0-0.8) 10^3/u L Baso # (Auto) 0.0 (0.0-0.1) 10^3/u L Nucleated RBC % (a uto) 0 % Nucleated RBCs # 0.0 /100WBC Specimen Type Arterial Sample Site Radial, right ABG pH 7.33 L (7.35-7.45) ABG pCO2 54.6 H (35-45) mmHg ABG pO2 71.4 L (80.0-100.0) mmH g ABG HCO3 28.8 H (22-26) mmol/L ABG Base Excess 2.2 H (-2.0-2.0) mmol/ L Vicente Test Pos Hematocrit 28.4 L (37-47) % Hgb O2 Saturation 93.2 L (95-100) % Carboxyhemoglobin 2.2 (0.4-20.1) %THgb Methemoglobin 0.4 (0.4-1.5) % Total Hemoglobin 9.3 L (12-16) g/dL O2 Delivery Device Nc O2 Liters/Min 2.0 % FiO2 28.0 % Chemical Lab Supervisor ID monro Sodium 142 (136-145) mmol/L Potassium 3.4 L (3.5-5.1) mmol/L Chloride 99 (98-107) mmol/L Carbon Dioxide 28 (22-29) mmol/L Anion Gap 18.4 (5-19) BUN 98 H* (8-23) mg/dL Creatinine 2.1 H (0.5-0.9) mg/dL GFR Calculation 23.9 L (90-130) mL/min Glucose 124 H (65-115) mg/dL Calcium 9.4 (8.5-10.5) mg/dL Total Bilirubin 0.4 (0.15-1.2) mg/dL AST 8 (0-32) U/L ALT 12 (0-33) U/L Alkaline Phosphata se 52 (35-105) IU/L Total Protein 6.8 (6.6-8.7) g/dL Albumin 3.6 (3.5-5.2) g/dL Globulin 3.2 (1.3-4.6) g/dL Discharge Plan Discharge Patient Disposition: er [facility] Clinical Impression: COPD (chronic obstructive pulmonary disease), Obstructive sleep apnea Condition: Stable Prescriptions: No Action multivitamin Capsule 1 cap PO DAILY RF: 0 acetaminophen [Acetaminophen Pain Relief] 500 mg Tablet 500 mg PO Q6H PRN (Reason: Pain) RF: 0 cetirizine [Zyrtec] 10 mg Tablet 10 mg PO DAILY RF: 0 isosorbide mononitrate 30 mg tablet extended release 24 hr 60 mg PO BID RF: 0 magnesium hydroxide [Milk of Magnesia] 400 mg/5 mL Suspension 30 ml PO DAILY PRN (Reason: CONSTIPATION) RF: 0 pantoprazole [Protonix] 40 mg Tablet,Delayed Release (Dr/Ec) 40 mg PO DAILY RF: 0 ferrous sulfate 325 mg (65 mg iron) Tablet 325 mg PO QAM RF: 0 gabapentin 300 mg capsule 300 mg PO BEDTIME RF: 0 fluoxetine 20 mg Capsule 20 mg PO DAILY RF: 0 Fleet Enema 1 ML solution 1 ml SD DAILY PRN (Reason: Constipation) RF: 0 Renvela 800 MG tablet 800 mg PO TIDWM RF: 0 Senokot tablet 1 tab PO BID RF: 0 bumetanide 1 mg tablet 1 mg PO BID Qty: 60 RF: 0 bisacodyl 10 mg Suppository 10 mg SD DAILY PRN (Reason: Constipation) RF: 0 bisacodyl 5 mg Tablet,Delayed Release (Dr/Ec) 10 mg PO DAILY PRN (Reason: Constipation) RF: 0 bumetanide 1 mg Tablet 2 mg PO BID 30 Days Qty: 120 RF: 0 amoxicillin-pot clavulanate 875-125 mg Tablet 1 tab PO BID 5 Days Qty: 10 RF: 0 amlodipine 5 mg tablet 5 mg PO BID 30 Days Qty: 60 RF: 0 Discharge Orders: Discharge Order (Routine); Ordered 10/08/19 Ordered By: Gunnar Pratt Referrals: Keith Cortez DO [Primary Care Provider] - Discharge Diet: Usual diet Discharge Activity: Resume usual activity Discharge Date/Time: 10/08/19 15:23 Coding Level of Care Code ED Administrative Liaison for Amelia Haddad
--- NOTE | 2019-10-08 12:34 | PC.NURSE ---
STATES NECK PAIN BACK PAIN RIGHT SHOULDER PAIN
[2019-10-08 12:36] VITALS: O2SAT 92
[2019-10-08 12:42] LABS: ABG PCO2 54.6 mmHg (35-45); ABG PH Result 7.33 (7.35-7.45); Arterial Blood Gas Hematocrit 28.4 % (37-47); Base Excess ABG 2.2 mmol/L (-2.0-2.0); Blood Gas Allen Test Pos; Blood Gas Sample Site Radial, right; Blood Gas Sample Type Arterial; Carboxyhemoglobin 2.2 %THgb (0.4-20.1); HCO3 ABG 28.8 mmol/L (22-26); HGB O2 Sat 93.2 % (95-100); Methemoglobin 0.4 % (0.4-1.5); Oxygen Device NC; PO2 ABG 71.4 mmHg (80.0-100.0); Total Hemoglobin 9.3 g/dL (12-16)
[2019-10-08 12:57] VITALS: PULSE 71; RESP 22; O2SAT 98
[2019-10-08 13:07] LABS: Basophils % 0.1 %; Eosinophils # 0.2 10^3/uL (0.0-0.8); Eosinophils % 2.4 %; Hematocrit 27.5 % (37.0-47.0); Hemoglobin 8.3 g/dL (11.5-15.3); Lymphocytes # 0.8 10^3/uL (0.8-4.8); Lymphocytes % 8.7 %; Mean Corpuscular HGB Conc 30.2 g/dL (30.0-36.0); Mean Corpuscular Hemoglobin 27.1 pg (28.0-34.0); Mean Corpuscular Volume 89.9 fL (81-99); Mean Platelet Volume 9.3 fL (7.4-10.4); Monocytes # 0.6 10^3/uL (0.2-0.9); Monocytes % 6.3 %; Neutrophils # 7.3 10^3/uL (1.8-7.7); Neutrophils % 81.5 %; Nucleated Red Blood Cells % 0 %; Platelet Count 184 10^3/cmm (130-400); Red Blood Count 3.06 10^6/uL (4.1-5.3); Red Cell Distribution Width 16.2 % (12.1-15.1)
[2019-10-08 13:31] LABS: Alanine Aminotransferase 12 U/L (0-33); Albumin Level 3.6 g/dL (3.5-5.2); Alkaline Phosphatase 52 IU/L (35-105); Anion Gap 18.4 (5-19); Aspartate Amino Transferase 8 U/L (0-32); Calcium 9.4 mg/dL (8.5-10.5); Carbon Dioxide 28 mmol/L (22-29); Chloride 99 mmol/L (98-107); Globulin 3.2 g/dL (1.3-4.6); Glomerular Filtration Rate 23.9 mL/min (90-130); Glucose 124 mg/dL (65-115); Potassium 3.4 mmol/L (3.5-5.1); Sodium 142 mmol/L (136-145); Total Bilirubin 0.4 mg/dL (0.15-1.2); Total Protein 6.8 g/dL (6.6-8.7)
[2019-10-08 13:35] LABS: Blood Urea Nitrogen 98 mg/dL (8-23)
[2019-10-08 13:49] VITALS: BP 124/59; PULSE 68; RESP 19; O2SAT 94
[2019-10-08 13:54] VITALS: PULSE 64; RESP 18; O2SAT 98
[2019-10-08 13:56] VITALS: BP 124/49; PULSE 93; O2SAT 93
--- NOTE | 2019-10-08 15:04 | ECG_ITS ---
Measurements Intervals [place] Rate: 71 P: 73 PA: 184 QRS: 61 QRSD: 110 T: 71 QT: 435 QTc: 474 SINUS RHYTHM LOW QRS VOLTAGE IN PRECORDIAL LEADS [QRS DEFLECTION < 1.0 mV IN CHEST LEADS] MINIMAL ST DEPRESSION [0.025+ mV ST DEPRESSION] Compared to ECG 09/27/2019 02:54:40 ST (T wave) deviation now present Sinus bradycardia no longer present Myocardial infarct finding no longer present Electronically Signed On 10-09-2019 9:11:44 HOSPITAL PRODUCT SPECIALIST by Stephen Koch M.D. [email or web address]
== END 2019-10-08 15:23 | disposition skilled nursing facility (03) ==
PROVIDERS: Emergency Provider Family Medicine; Family Provider Family Medicine; PCP Family Medicine
DX: J44.9 Chronic obstructive pulmonary disease, unspecified (principal); G47.33 Obstructive sleep apnea (adult) (pediatric); Z87.891 Personal history of nicotine dependence; Z99.89 Dependence on other enabling machines and devices
CPT/HCPCS: 36600; 80053; 82805; 85025; 93005; 94660; 96374; 96375; 99282; 99284; J1642